=== PATIENT | female | born 1970 | race Caucasian/White ===

== ENCOUNTER 2020-09-15 08:34 | Emergency (ER) | payer OTHER, SELFPAY ==
[2020-09-15 08:40] VITALS: BP 146/79; PULSE 91; RESP 16; TEMP 36.6; O2SAT 98
--- NOTE | 2020-09-15 08:58 | ED.GENADULT ---
HPI - General Adult General Chief complaint: Upper Respiratory Infection Stated complaint: HEAD/CHEST CONGESTION Source: patient Mode of arrival: ambulatory Limitations: no limitations History of Present Illness HPI narrative: 50 y/o female. PMH includes: See Chart. Presents to clinic today with acute complaints of sinus congestion, purulent nasal discharge, PND, bilateral ear pressure and semi-productive cough for past 1 week. Client reports to have been taking OTC remedies with subtherapeutic relief. She is a daily cigarette smoker. No fever, chills, chest pain, dyspnea, abdominal pain, N/V/D. No known ill contacts. Pt reports to have just been tested for Covid 19 at work and it was negative . She politely declines additional Covid 19 testing at clinic today. No additional acute c/o upon PE. Related Data Allergies Allergy/AdvReac Type Severity Reaction Status Date / Time codeine Allergy Unknown VOMITING Verified 01/12/18 12:02 Review of Systems Review of Systems: Narrative: CONSTITUTIONAL: Denies fever, chills, sweats. EYES: Denies visual changes, redness, discharge. ENT: Congestion, otalgia, scratchy throat. CARDIOVASCULAR: Denies chest pain, palpitations, edema. RESPIRATORY: Denies dyspnea. No wheezing. Positive cough, congestion. GASTROINTESTINAL: Denies abdominal pain, nausea, vomiting, diarrhea. GENITOURINARY: Denies dysuria, hematuria, abnormal discharge SKIN: Denies rash or itching. MUSCULOSKELETAL: Denies acute back pain, joint pain, or myalgia. NEUROLOGIC: Denies numbness, or focal weakness. PSYCHIATRIC: Denies anxiety or depression. Exam Narrative: Exam Narrative: GENERAL: This is a well-nourished, well-developed patient, in no apparent distress. HEAD: normocephalic, atraumatic. EYES: PERRL. Sclera clear/white. Vision is grossly intact. EARS: External ears normal, auditory canals clear and without drainage, TMs normal without perforation, mild bilateral TM erythema. Hearing grossly intact. NOSE: Positive rhinorrhea, no obstruction. THROAT: Mucous membranes moist, posterior pharynx erythematous without swelling or exudate. NECK: Neck supple, non-tender without lymphadenopathy, masses or thyromegaly. CARDIOVASCULAR: Regular rate and rhythm without murmurs, gallops, or rubs. RESPIRATORY: Clear to auscultation. Breath sounds equal bilaterally. No wheezes or rales. Mild upper airway rhonchi, cleared with cough. GASTROINTESTINAL: Abdomen soft, non-tender, nondistended. Bowel sounds are active. No hepato-splenomegaly, or palpable masses. No guarding. SKIN: warm, intact with no suspicious lesions or rash, good texture and turgor. NEURO: awake, alert, and oriented to person, place and time. There were no obvious focal neurologic abnormalities. Steady gait EXTREMITIES: Normal range of motion. No edema. No calf tenderness. Negative Homans sign bilaterally. BACK: Nontender without deformity or crepitance. No flank tenderness. [place] Coma Scale Eye Opening: Spontaneous 4 Rom Coma Scale Motor: Obeys Commands 6 Rom Coma Scale Verbal: Oriented 5 Const: General: no acute distress Orientation/consciousness: patient oriented x3 Course Vital Signs Vital signs: Vital Signs Temperature 36.6 C 09/15/20 08:40 Pulse Rate 91 09/15/20 08:40 Respiratory Rate 16 09/15/20 08:40 Blood Pressure 146/79 H 09/15/20 08:40 Pulse Oximetry 98 09/15/20 08:40 Temperature 36.6 C 09/15/20 08:40 Pulse Rate 91 09/15/20 08:40 Respiratory Rate 16 09/15/20 08:40 Blood Pressure 146/79 H 09/15/20 08:40 Pulse Oximetry 98 09/15/20 08:40 Medical Decision Making Differential Diagnosis Differential Diagnosis: Differential diagnosis: Likely upper respiratory infection, otitis media, sinusitis, viral infection, bronchitis, pharyngitis and other (Strep throat, COVID-19). Medical Records Medical records reviewed: Yes I reviewed the patient's medical records. Vital Signs Vital Signs: Vital Signs [place]
== END 2020-09-15 09:11 | disposition home or self-care (01) ==
PROVIDERS: Emergency Provider Nurse Practitioner Adult Health; PCP Family Medicine
DX: J06.9 Acute upper respiratory infection, unspecified (principal); J01.00 Acute maxillary sinusitis, unspecified
CPT/HCPCS: 99213; G0463

== ENCOUNTER 2021-06-26 19:36 | Observation (INO) | payer OTHER, SELFPAY ==
--- NOTE | ~2021-06-26 | CT_ITS ---
EXAMINATION: CT abdomen pelvis wo con DATE: 06/26/2021 22:02 INDICATION: Right flank pain TECHNIQUE: Computed tomography (CT) of the abdomen and pelvis was performed without intravenous contr ast. The dose-length product (DLP) was 920.49 mGy-cm. Automated exposure control and iterative recons truction technique were employed. COMPARISON: 06/18/2009 FINDINGS: There is mild atelectasis of the lingula. There are tiny nodules of the lung bases measurin g up to 3 mm. The heart size is normal. The gallbladder is surgically absent. The liver, spleen, panc reas, and left adrenal gland are normal. There is a 2.2 cm mass of the right adrenal gland. A 2 mm no nobstructing stone is present in the right kidney upper pole. The left kidney is unremarkable. No sto jose are present in the ureters or bladder. There is no hydronephrosis or hydroureter. The dilated dany endix measures up to 9 mm. There is fat stranding near the base of the appendix. No pathologically en larged abdominal or pelvic lymph nodes are identified. There is no free intraperitoneal gas or eviden ce of bowel obstruction. There are changes of anterior and posterior fusion at L4-5. IMPRESSION: 1. Findings consistent with early acute appendicitis. These findings were discussed with Dr. Konrad bone M.D. at 0832 hours on 06/27/2021. 2. Tiny nodules of the lung bases, likely infectious or inflammatory. 3. 2.2 cm right adrenal mass. Follow-up with nonemergent adrenal CT or MRI is recommended. 4. Nonobstructing right nephrolithiasis. Reviewed, dictated and finalized at location A. IMPRESSION: 1. Findings consistent with early acute appendicitis. These findings were discu ssed with Dr. Konrad Blair M.D. at 0832 hours on 06/27/2021. 2. Tiny nodules of the lung bases, likely infectious or inflammatory. 3. 2.2 cm right adrenal mass. Follow-up with nonemergent adrenal CT or MRI is r ecommended. 4. Nonobstructing right nephrolithiasis.
[2021-06-26 19:53] VITALS: BP 135/90; PULSE 93; RESP 18; TEMP 36.8; O2SAT 98
[2021-06-26 22:19] VITALS: BP 120/85; PULSE 90; RESP 16; O2SAT 99
[2021-06-26 22:25] LABS: Basophils Absolute Auto 0.1 K/mm3 (0.0-0.1); Basophils Percent Auto 0.5 % (0.2-1.2); Eosinophils Absolute Auto 0.7 K/mm3 (0-0.3); Eosinophils Percent Auto 4.9 % (0-4.4); Hematocrit 37.3 % (37.0-47.0); Hemoglobin 12.3 g/dL (12.0-15.0); Immature Granulocyte Absolute 0.08 K/mm3 (0.00-0.031); Immature Granulocyte Percent A 0.5 % (0-0.5); Lymphocytes Absolute Auto 3.02 K/mm3 (0.9-3.2); Lymphocytes Percent Auto 20.7 % (18.3-44.2); Mean Platelet Volume 11.2 fl (7.4-10.4); Monocytes Percent Auto 6.9 % (2.6-8.5); Neutrophils Absolute Auto 9.7 K/mm3 (1.3-6.7); Neutrophils Percent Auto 66.5 % (45.5-73.1); Platelet Count Result 193 k/mm3 (150-375); Red Cell Distribution Width 13.2 % (11.5-14.5); White Blood Count 14.6 K/mm3 (4.5-10.0)
[2021-06-26 22:31] LABS: Anion Gap 7 mmol/L (8-16); Blood Urea Nitrogen 14 mg/dL (7-17); Calcium 9.4 mg/dL (8.4-10.2); Carbon Dioxide 25 mmol/L (22-30); Chloride 105 mmol/L (98-107); Estimated CRCL calculation 69 ml/min; Estimated Glomerular Filt Rate > 60; Glucose 102 mg/dL (65-110); Sodium 137 mmol/L (137-145)
[2021-06-26 22:32] LABS: Alanine Aminotransferase 25 U/L (4-35); Albumin Level 4.1 g/dL (3.5-5.1); Alkaline Phosphatase 95 U/L (38-126); Aspartate Amino Transferase 24 U/L (14-36); Bilirubin,Total 0.6 mg/dL (0.2-1.3); Lipase 27 U/L (23-300)
[2021-06-26 22:40] LABS: Add Urine Microscopic? YES; Appearance Urine Clear (Clear); Bacteria Urine Trace /hpf; Bilirubin Urine Negative (Negative); Blood Urine Negative (Negative); Color Urine Yellow (Yellow); Glucose Urine UA Negative (Negative); Ketones Urine Negative (Negative); Leukocyte Esterase Ur 1+ LEU/UL (Negative); Mucus Urine Rare /lpf; Nitrate Urine Negative (Negative); Protein Urine 1+ mg/dL (Negative); RBC Urine 0-2 /hpf (0-2); Urobilinogen Urine Negative mg/dL (<2.0); WBC Urine 0-3 /hpf
[2021-06-26] MEDS: SODIUM CHLORIDE 0.9% IV 1,000 ML 999 ML IV CONT (23:04)
[2021-06-26] MEDS: ONDANSETRON INJ 4 MG/2 ML VIAL IV PUSH (23:04)
[2021-06-26] MEDS: MORPHINE SULFATE (*CRX) 4 MG/ML INJ IV PUSH (23:05)
--- NOTE | 2021-06-26 23:16 | ED.GENADULT ---
HPI - General Adult General Chief complaint: Abdominal Pain Stated complaint: RLQ pain Time Seen by Provider: 06/26/21 22:09 History of Present Illness HPI narrative: Patient 51-year-old female presents the emergency department with chief complaint of right lower quadrant abdominal pain. Patient reports she started having some pain more in the right flank that radiated around to the right lower quadrant patient states is now localized more in the inferior to the umbilicus and right lower quadrant the patient states the pain is worse with palpation and improved with rest. Patient states that recently she was treated for a kidney stone that was 4 mm and told that it should pass on its own. Patient states that she has not had any fever. Related Data Home Medications Medication Instructions Recorded Confirmed cholecalciferol (vitamin D3) 125 125 mcg PO DAILY 06/07/21 06/07/21 mcg (5,000 unit) capsule multivitamin 1 tablet PO DAILY 06/07/21 06/07/21 Allergies Allergy/AdvReac Type Severity Reaction Status Date / Time codeine Allergy Unknown VOMITING Verified 06/26/21 19:57 Review of Systems Review of Systems: A 10 system review of systems was completed on the patient and is negative except for what is stated in the HPI. Nursing and ancillary documentation was reviewed. [facility] Family History Family History Mother Lung cancer Diabetes mellitus Hypertension Depression Heart disease Thyroid disorder Grandparent Stomach cancer Grandparent Lung cancer Social History Social History Smoking status: Never smoker Alcohol intake: never Substance use: never Exam Narrative: GENERAL: Well-appearing, well-nourished, and in no acute distress. HEAD: Normocephalic, atraumatic. EYES: PERRLA and EOMI. ENT: Nares clear, no rhinorrhea or epistaxis. Mucous membranes moist. NECK: Supple. CHEST: Clear to auscultation. No respiratory distress. HEART: Regular rate and rhythm. No murmur heard. Normal peripheral pulses. ABDOMEN: Soft, tender to palpation in the suprapubic and right lower quadrant, nondistended, normal active bowel sounds. EXTREMITIES: Normal range of motion. No edema. SKIN: Warm, dry, no rash. NEURO: No focal deficits. Alert and oriented x3. PSYCH: Normal mood and affect. Course Course Emergency Course: CT scan was read by the radiologist is a prominent 9 mm appendix with some small amount of right lower quadrant edema concerning for early acute appendicitis. Vital Signs Vital signs: Vital Signs Temperature 36.8 C 06/26/21 19:53 Pulse Rate 93 06/26/21 19:53 Respiratory Rate 18 06/26/21 19:53 Blood Pressure 135/90 06/26/21 19:53 Pulse Oximetry 98 06/26/21 19:53 Temperature 36.8 C 06/26/21 19:53 Pulse Rate 73 06/26/21 23:42 Respiratory Rate 20 06/26/21 23:42 Blood Pressure 119/56 L 06/26/21 23:42 Pulse Oximetry 96 06/26/21 23:42 Medical Decision Making Vital Signs Vital Signs: Vital Signs Temperature 36.8 C 06/26/21 19:53 Pulse Rate 93 06/26/21 19:53 Respiratory Rate 18 06/26/21 19:53 Blood Pressure 135/90 06/26/21 19:53 Pulse Oximetry 98 06/26/21 19:53 Temperature 36.8 C 06/26/21 19:53 Pulse Rate 73 06/26/21 23:42 Respiratory Rate 20 06/26/21 23:42 Blood Pressure 119/56 L 06/26/21 23:42 Pulse Oximetry 96 06/26/21 23:42 Lab Data Result diagrams: 06/26/21 22:16 06/26/21 22:16 Labs: Lab Results 06/26/21 06/26/21 06/26/21 Range/Units 22:16 22:16 22:16 WBC 14.6 H (4.5-10.0) K/mm3 RBC 4.10 L (4.2-5.4) M/mm3 Hgb 12.3 (12.0-15.0) g/dL Hct 37.3 (37.0-47.0) % MCV 91.0 (80-100) fl MCH 30.0 (26-34) pg MCHC 33.0 (32-36) g/dl RDW 13.2 (11.5-14.5) % Plt Count 193 (150-375) k/mm3 MPV 11.2 H (7.4-10.4) fl Immature
[2021-06-26 23:42] VITALS: BP 119/56; PULSE 73; RESP 20; O2SAT 96
[2021-06-27] VITALS (7 sets, daily range): BP systolic 101–142; BP diastolic 47–70; PULSE 58–93; RESP 12–18; TEMP 36.3–37.1; O2SAT 93–100; BMI 33.3
--- NOTE | 2021-06-27 00:04 | ECG_ITS ---
Measurements Intervals [place] Rate: 72 P: 43 MI: 135 QRS: -19 QRSD: 86 T: -12 QT: 373 QTc: 411 Interpretive Statements SINUS RHYTHM BORDERLINE R WAVE PROGRESSION, ANTERIOR LEADS INFERIOR INFARCT, AGE INDETERMINATE BASELINE ARTIFACT- I, II, III, AVR, AVL ABNORMAL ECG Electronically Signed On 06-27-2021 7:05:35 CDT by Sam Alvarez D.O.
[2021-06-27] MEDS: HYDROmorphone HCL INJ (*CRX) 1 MG/ML SYR IV PUSH ×5 (00:26→21:10)
[2021-06-27] MEDS: FAMOTIDINE 20 MG/2 ML VIAL IV PUSH (01:28)
--- NOTE | 2021-06-27 02:26 | PC.NURSE ---
This patient, Cara Mendez, was admitted to [facility] S[facility] Room 309-01. Patient/family oriented to hospital policies and general routines including ID bracelet, bed and alarms, visiting hours, pain management, procedures, bathroom and other care routines, personal items, smoking policy, room service/diet, and visiting hours. Information on how to activate the Rapid Response Team has been discussed. Patient/Family are encouraged to report perceived risks to care and to ask questions if they do not understand what they are told or what they should do.
[2021-06-27] MEDS: MAG HYDROX/AL HYDROX/SIMETH 30 ML UDC PO (02:56)
[2021-06-27] MEDS: PANTOPRAZOLE SODIUM IV 40 MG VIAL IV PUSH ×3 (02:58→21:01)
[2021-06-27] MEDS: SODIUM CHLORIDE 0.9% IV 1,000 ML 125 ML IV CONT ×3 (02:58→21:10)
[2021-06-27] MEDS: ONDANSETRON INJ 4 MG/2 ML VIAL IV PUSH (05:26)
--- NOTE | 2021-06-27 08:15 | PM.IMHP ---
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 She came home add some pancakes and then went to bed and slept well but when she woke up to go back in for a double shift on the date of admission 06/26/2021 she still has some abdominal pain. However, she went ahead and went to work for about 5 hours but could not tolerate the pain anymore and then came to the emergency room here at [facility]. Workup in the emergency room apparently showed slightly elevated white count and because of right flank pain and a history of previous kidney stone a CT scan of the abdomen pelvis was done here in the emergency room. This revealed a 9 mm appendix with some questionable stranding around the base. I was called at around 2:30 a.m. this morning by the ER physician regarding the possibility of appendicitis and therefore the patient was admitted to [facility]. Further history reveals that just recently on June 14 the patient presented to [facility] with a possible STEMI and was transferred to [facility] and had a cardiac catheterization. This was not explained to me when the patient was admitted to [facility] from the ER. Therefore, after I talked to her this morning I am consulting our hospitalists. Patient states that the result of her catheterization was that her heart muscle was healthy, that she had no coronary artery blockages, and that she was okay but she was to have a follow-up with her manager editorial at the [facility], Dr. Garcia, on Monday06/28/2021. However, this problem intervened. Right now patient is still having some nausea, some right lower quadrant abdominal pain, no real fever, and no labs were repeated this morning so I ordered some more. I will review her CT scan with our radiologist since there is no report on the chart yet from the virtual radiologist. We will also try to get a copy of the lease report possibly the images from a CT scan done about 1 month ago at [facility] for flank pain which apparently showed a kidney stone that someone told her would go ahead and pass. Review of Systems Constitutional: Constitutional: Reports as per HPI and Denies headache(s) Eyes: Eyes: Denies loss of vision and Denies eye pain ENT: Reports Normal hearing present, Denies change in voice, Denies dizziness and Denies headache(s) Comments: Recent visit with Dr. Fredy Perez (see note documented in electronic medical record) This showed wax buildup in the ear, possible early parotiditis on the left, and possible silent reflux with laryngeal irritation. Cardiovascular: Cardiovascular: Reports no additional cardiovascular complaints, Denies chest pain and Denies dyspnea Comments: Early this month the patient was presented as a possible STEMI at [facility] and was transferred to [facility] where she underwent a coronary artery angiogram. She was told that her heart muscle had no damage and that she had no blockages. She was sent home on metoprolol and a once a day PPI because of the finding of chronic reflux. Respiratory: Respiratory: Denies cough, Denies dyspnea, Denies dyspnea on exertion and Denies wheezing Gastrointestinal: Gastrointestinal: Reports abdominal pain (Mainly right lower quadrant and right flank), Denies bloating, Denies hematochezia, Denies change in bowel habits, Reports nausea and Denies vomiting Comments: Moderate anorexia starting yesterday morning History of laparoscopic cholecystectomy at [facility] in [place] approximately 2018 Genitourinary: Comments: History of 2007 laparoscopic hysterectomy and right salpingo- oophorectomy History of 2009 completion cervical remoal by laparoscopic mean
[2021-06-27 08:28] LABS: Basophils Absolute Auto 0.1 K/mm3 (0.0-0.1); Basophils Percent Auto 0.8 % (0.2-1.2); Eosinophils Absolute Auto 0.4 K/mm3 (0-0.3); Eosinophils Percent Auto 3.9 % (0-4.4); Hematocrit 36.2 % (37.0-47.0); Hemoglobin 11.6 g/dL (12.0-15.0); Immature Granulocyte Absolute 0.05 K/mm3 (0.00-0.031); Immature Granulocyte Percent A 0.6 % (0-0.5); Lymphocytes Absolute Auto 1.37 K/mm3 (0.9-3.2); Lymphocytes Percent Auto 15.2 % (18.3-44.2); Mean Corpuscular Hemoglobin 29.8 pg (26-34); Mean Corpuscular Volume 93.1 fl (80-100); Monocytes Absolute Auto 0.7 K/mm3 (0.1-0.6); Monocytes Percent Auto 7.2 % (2.6-8.5); Neutrophils Absolute Auto 6.5 K/mm3 (1.3-6.7); Neutrophils Percent Auto 72.3 % (45.5-73.1); Platelet Count Result 160 k/mm3 (150-375); Red Blood Count 3.89 M/mm3 (4.2-5.4); Red Cell Distribution Width 13.4 % (11.5-14.5)
[2021-06-27 08:47] LABS: Alanine Aminotransferase 49 U/L (4-35); Albumin Level 3.8 g/dL (3.5-5.1); Alkaline Phosphatase 97 U/L (38-126); Anion Gap 2 mmol/L (8-16); Aspartate Amino Transferase 68 U/L (14-36); Bilirubin,Total 0.4 mg/dL (0.2-1.3); Blood Urea Nitrogen 12 mg/dL (7-17); Calcium 8.4 mg/dL (8.4-10.2); Carbon Dioxide 25 mmol/L (22-30); Chloride 108 mmol/L (98-107); Estimated CRCL calculation 78 ml/min; Estimated Glomerular Filt Rate > 60; Glucose 117 mg/dL (65-110); Lipase 42 U/L (23-300); Magnesium 2.1 mg/dL (1.6-2.3); Potassium 4.1 mmol/L (3.4-5.0); Sodium 135 mmol/L (137-145)
--- NOTE | 2021-06-27 16:44 | P.CONIM_ITS ---
Assessment and Plan Assessment and plan (1) HLD (hyperlipidemia): Code(s): E78.5 - Hyperlipidemia, unspecified Status: Acute Assessment and Plan: * Patient stated that her triglycerides are always high * She treats with fish oil * Will get a lipid panel in the a.m. * Consider starting patient on a statin (2) GERD (gastroesophageal reflux disease): Code(s): K21.9 - Gastro-esophageal reflux disease without esophagitis Status: Acute Assessment and Plan: * Patient was taking Protonix 40 mg p.o. daily * Continue home medication (3) Acute appendicitis: Qualifiers: Acute appendicitis type: unspecified acute appendicitis type Qualified Code(s): K35.80 - Unspecified acute appendicitis Code(s): K35.80 - Unspecified acute appendicitis Status: Acute Assessment and Plan: * CT shows a 9 mm appendix with fat stranding near the bases * Manage per surgical services * Elevated white blood cell count that is trending down * Normal saline at 1:25 a.m. an hour * Zosyn 3.375 q.6 * Zofran 4 mg IV push Q 4 p.r.n. for nausea * Mylanta and Dulcolax suppository for constipation * Dilaudid 1 mg IV Q 3 p.r.n. for pain (4) HTN (hypertension), benign: Code(s): I10 - Essential (primary) hypertension Status: Acute Assessment and Plan: * Blood pressure is 142/59 currently * Patient on metoprolol tartrate 12.5 mg p.o. b.i.d. at home * Continue the metoprolol * Trend blood pressure * Adjust medications as needed (5) Abnormal EKG: Code(s): R94.31 - Abnormal electrocardiogram [ECG] [EKG] Status: Acute Assessment and Plan: * Patient recently was diagnosed with STEMI * According to the patient the electrolytes were deficient * cardiac consult thank you for your recommendations * Patient stated that she had a cardiac catheterization and echo done it [facility] * Will order the records * Currently magnesium is 2.1, potassium 4.1, calcium 8.4 * Resume magnesium 400 mg p.o. b.i.d. * Consider tele monitor * Consider starting patient on aspirin 81 mg p.o. (6) Elevated LFTs: Code(s): R79.89 - Other specified abnormal findings of blood chemistry Status: Acute Assessment and Plan: * Could be related to appendicitis * AST/ALT normal on admission * Slightly elevated on redraw * trend * Hepatitis panel ordered * Consider RUQ ultrasound Additional Plan Thank you letting us be apart of this case. Please do not hesitate to call with any questions. Consult was admitted to surgical services in observation HPI Data of Consult Consult date: 06/28/21 Requesting Physician: Konrad Blair MD Primary Care Provider: Boy Smith, Consult Narrative Narrative: Date of Service 06/27/21 @ 16:44 Cara Mendez is a 51 year old female with a past medical history of a cholecystectomy, hysterectomy, hyperlipidemia that presented to the emergency room for evaluation of right-sided abdominal pain. 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 She said she got up and stretch which did relieve her right away however the pain did go away and it was achy she stated that it felt like she was constipated. She then went home and went to bed where she slept well. She did notice the pain sti
--- NOTE | 2021-06-27 16:44 | PM.IMCN ---
Assessment and Plan Assessment and plan (1) HLD (hyperlipidemia): Code(s): E78.5 - Hyperlipidemia, unspecified Status: Acute Assessment and Plan: Patient stated that her triglycerides are always high She treats with fish oil Will get a lipid panel in the a.m. Consider starting patient on a statin (2) GERD (gastroesophageal reflux disease): Code(s): K21.9 - Gastro-esophageal reflux disease without esophagitis Status: Acute Assessment and Plan: Patient was taking Protonix 40 mg p.o. daily Continue home medication (3) Acute appendicitis: Qualifiers: Acute appendicitis type: unspecified acute appendicitis type Qualified Code(s): K35.80 - Unspecified acute appendicitis Code(s): K35.80 - Unspecified acute appendicitis Status: Acute Assessment and Plan: CT shows a 9 mm appendix with fat stranding near the bases Manage per surgical services Elevated white blood cell count that is trending down Normal saline at 1:25 a.m. an hour Zosyn 3.375 q.6 Zofran 4 mg IV push Q 4 p.r.n. for nausea Mylanta and Dulcolax suppository for constipation Dilaudid 1 mg IV Q 3 p.r.n. for pain (4) HTN (hypertension), benign: Code(s): I10 - Essential (primary) hypertension Status: Acute Assessment and Plan: Blood pressure is 142/59 currently Patient on metoprolol tartrate 12.5 mg p.o. b.i.d. at home Continue the metoprolol Trend blood pressure Adjust medications as needed (5) Abnormal EKG: Code(s): R94.31 - Abnormal electrocardiogram [ECG] [EKG] Status: Acute Assessment and Plan: Patient recently was diagnosed with STEMI According to the patient the electrolytes were deficient cardiac consult thank you for your recommendations Patient stated that she had a cardiac catheterization and echo done it [facility] Will order the records Currently magnesium is 2.1, potassium 4.1, calcium 8.4 Resume magnesium 400 mg p.o. b.i.d. Consider tele monitor Consider starting patient on aspirin 81 mg p.o. (6) Elevated LFTs: Code(s): R79.89 - Other specified abnormal findings of blood chemistry Status: Acute Assessment and Plan: Could be related to appendicitis AST/ALT normal on admission 24/25 Slightly elevated on redraw trend Hepatitis panel ordered Consider RUQ ultrasound Additional Plan Thank you letting us be apart of this case. Please do not hesitate to call with any questions. Consult was admitted to surgical services in observation HPI Data of Consult Consult date: 06/28/21 Requesting Physician: Konrad Blair MD Primary Care Provider: Boy Smith, Consult Narrative Narrative: Date of Service 06/27/21 @ 16:44 Cara Mendez is a 51 year old female with a past medical history of a cholecystectomy, hysterectomy, hyperlipidemia that presented to the emergency room for evaluation of right-sided abdominal pain. 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 She said she got up and stretch which did relieve her right away however the pain did go away and it was achy she stated that it felt like she was constipated. She then went home and went to bed where she slept well. She did notice the pain still in her abdomen however she did go to work that night and lasted about 5 hours when the pain got worse and she came to the emergency room. I did talk to the patient about further concern of the cardiac system. Patient stated that she did have chest pain and went to the emergency room at [employer] where she was noted to have some EKG changes and a STEMI. They were unable to intervene at that time so they transferred the patient to [facility] for further care. Patient stat
[2021-06-27] MEDS: BISACODYL 10 MG SUPPOSITORY RECTAL (18:09)
[2021-06-27] MEDS: METOPROLOL TARTRATE 12.5 MG TABLET PO (18:22)
[2021-06-28] MEDS: ONDANSETRON INJ 4 MG/2 ML VIAL IV PUSH ×2 (01:28→08:56)
[2021-06-28] MEDS: HYDROmorphone HCL INJ (*CRX) 1 MG/ML SYR IV PUSH ×3 (05:23→12:36)
[2021-06-28] MEDS: SODIUM CHLORIDE 0.9% IV 1,000 ML 125 ML IV CONT ×2 (05:27→14:01)
[2021-06-28 05:49] VITALS: BP 144/70; PULSE 64; RESP 17; TEMP 36.7; O2SAT 96
[2021-06-28 07:37] LABS: Basophils Absolute Auto 0.1 K/mm3 (0.0-0.1); Basophils Percent Auto 0.8 % (0.2-1.2); Eosinophils Absolute Auto 0.6 K/mm3 (0-0.3); Eosinophils Percent Auto 9.7 % (0-4.4); Hematocrit 35.3 % (37.0-47.0); Hemoglobin 11.2 g/dL (12.0-15.0); Immature Granulocyte Absolute 0.02 K/mm3 (0.00-0.031); Immature Granulocyte Percent A 0.3 % (0-0.5); Lymphocytes Percent Auto 33.9 % (18.3-44.2); Mean Corpuscular HGB Conc 31.7 g/dl (32-36); Mean Corpuscular Hemoglobin 30.1 pg (26-34); Mean Corpuscular Volume 94.9 fl (80-100); Mean Platelet Volume 11.5 fl (7.4-10.4); Monocytes Absolute Auto 0.4 K/mm3 (0.1-0.6); Monocytes Percent Auto 6.9 % (2.6-8.5); Neutrophils Percent Auto 48.4 % (45.5-73.1); Platelet Count Result 160 k/mm3 (150-375); Red Blood Count 3.72 M/mm3 (4.2-5.4); Red Cell Distribution Width 13.2 % (11.5-14.5); White Blood Count 6.2 K/mm3 (4.5-10.0)
[2021-06-28 08:24] LABS: Alanine Aminotransferase 47 U/L (4-35); Albumin Level 3.6 g/dL (3.5-5.1); Alkaline Phosphatase 85 U/L (38-126); Anion Gap 2 mmol/L (8-16); Aspartate Amino Transferase 43 U/L (14-36); Bilirubin,Total 0.2 mg/dL (0.2-1.3); Blood Urea Nitrogen 9 mg/dL (7-17); Calcium 8.7 mg/dL (8.4-10.2); Carbon Dioxide 25 mmol/L (22-30); Chloride 110 mmol/L (98-107); Cholesterol 225 mg/dL (0-200); Estimated CRCL calculation 63 ml/min; Estimated Glomerular Filt Rate 58; Glucose 103 mg/dL (65-110); HDL Direct 36 mg/dL; Magnesium 2.1 mg/dL (1.6-2.3); Potassium 4.1 mmol/L (3.4-5.0); Sodium 137 mmol/L (137-145); Triglycerides 278 mg/dL (<150)
[2021-06-28 08:35] LABS: LDL Cholesterol Direct 122 mg/dL
[2021-06-28 08:50] VITALS: PULSE 64
[2021-06-28] MEDS: METOPROLOL TARTRATE 12.5 MG TABLET PO ×2 (08:50→20:49)
[2021-06-28] MEDS: PANTOPRAZOLE SODIUM IV 40 MG VIAL IV PUSH ×2 (08:51→20:49)
[2021-06-28] MEDS: MAGNESIUM OXIDE 400 MG TABLET PO (08:51)
--- NOTE | 2021-06-28 08:52 | PM.CNCAR ---
Assessment and Plan Assessment and plan (1) Acute appendicitis: Qualifiers: Acute appendicitis type: unspecified acute appendicitis type Qualified Code(s): K35.80 - Unspecified acute appendicitis Code(s): K35.80 - Unspecified acute appendicitis Status: Acute Assessment and Plan: Currently being treated conservatively with antibiotics. (2) Abnormal EKG: Code(s): R94.31 - Abnormal electrocardiogram [ECG] [EKG] Status: Acute Assessment and Plan: The patient has a EKG with mild chronic changes. Her recent cardiac catheterization earlier in June 2021 showed no significant coronary disease. Her chest discomfort at that time was blamed on electrolyte imbalance, and hypertension. She also had a small pericardial effusion but apparently it was not thought she had pericarditis. No recurrent chest discomfort I think the patient would be at low risk for cardiovascular complications should she need surgical intervention of her appendicitis. (3) S/P coronary angiogram: Code(s): Z98.890 - Other specified postprocedural states Status: Acute Assessment and Plan: Cardiac catheterization 06/14/2021 showed minimal coronary plaquing. (4) Mixed hyperlipidemia: Code(s): E78.2 - Mixed hyperlipidemia Status: Acute Assessment and Plan: ACC/AHA CV Risk Calculator suggests an 11.9% risk of CV problems over the next 10 years. Consider statin tx once LFTs and acute issues resolve. (5) HTN (hypertension), benign: Code(s): I10 - Essential (primary) hypertension Status: Acute Assessment and Plan: Recent onset of hypertension, treated with metoprolol. (6) Pericardial effusion: Code(s): I31.3 - Pericardial effusion (noninflammatory) Status: Acute Assessment and Plan: Small pericardial effusion noted by echo 06/14/2021. Does not appear to have any pericardial pain. Probably an incidental finding. (7) Tobacco use: Code(s): Z72.0 - Tobacco use Status: Acute Assessment and Plan: Hopefully the patient will discontinue smoking. (8) Elevated LFTs: Code(s): R79.89 - Other specified abnormal findings of blood chemistry Status: Acute Assessment and Plan: Uncertain etiology Additional Plan Follow-up with usual straddle truck operator, Dr. Aron Garcia, on discharge. Will sign off; thank you very much for this consult. Please call if we can be of any further help. History of Present Illness History of Present Illness Consult date/time: 06/28/21 08:52 Reason For Visit: Acute appendicitis Narrative: Date of service 06/28/2021 Cara Oviedo is a 51-year-old female whom I was asked to see at the request of hospitalist for my advice and opinion regarding her anticipated cardiovascular perioperative risk. She had a recent cardiac catheterization done at [facility]. She was admitted with abdominal pain, possibly early appendicitis. The patient presented to [facility] on 06/14/2021 with intense chest discomfort, feeling like her chest was on fire, radiating to the jaw and arms. Her EKG showed some inferior ST changes and she was transferred to [facility] for ongoing chest discomfort. She underwent cardiac catheterization which showed minimal coronary plaquing. Her echo showed normal left ventricular function, EF 55%, with diastolic dysfunction and a small pericardial effusion. Her potassium (was < 3.0), magnesium and calcium were low and repleted. She had no prior history of hypertension but her blood pressure was high and she was started on metopro
--- NOTE | 2021-06-28 13:18 | P.PNIM_ITS ---
Progress Note: A&P Assessment and Plan (1) Acute appendicitis: Qualifiers: Acute appendicitis type: unspecified acute appendicitis type Qualified Code(s): K35.80 - Unspecified acute appendicitis Code(s): K35.80 - Unspecified acute appendicitis Status: Acute Assessment and Plan: * CT shows a 9 mm appendix with fat stranding near the bases * Manage per surgical services * Elevated white blood cell count that is trending down * Normal saline at 125 an hour * Zosyn 3.375 q.6 * Zofran 4 mg IV push Q4 p.r.n. for nausea * Mylanta and Dulcolax suppository for constipation * Dilaudid 1 mg IV Q 3 p.r.n. for pain (2) HTN (hypertension), benign: Code(s): I10 - Essential (primary) hypertension Status: Acute Assessment and Plan: * Blood pressure is 142/59 currently * Continue metoprolol tartrate 12.5 mg p.o. b.i.d. at home * Trend blood pressure * Adjust medications as needed (3) HLD (hyperlipidemia): Code(s): E78.5 - Hyperlipidemia, unspecified Status: Acute Assessment and Plan: * Patient stated that her triglycerides are always high * She treats with fish oil, this is not working * lipid panel: Triglycerides 278 cholesterol 225 LDL 122 HDL 36 * Consider starting patient on a statin (4) GERD (gastroesophageal reflux disease): Code(s): K21.9 - Gastro-esophageal reflux disease without esophagitis Status: Acute Assessment and Plan: * Patient was taking Protonix 40 mg p.o. daily * Continue home medication (5) Abnormal EKG: Code(s): R94.31 - Abnormal electrocardiogram [ECG] [EKG] Status: Acute Assessment and Plan: * Cardiology recommends statin when acute problems are resolved * Patient recently was diagnosed with STEMI at [facility] * According to the patient the electrolytes were deficient * cardiac consult thank you for your recommendations * Patient stated that she had a cardiac catheterization and echo done it [facility] on 06/14/21 * records reviewed by cardiology * Currently magnesium is 2.1, potassium 4.1, calcium 8.7 on 06/28/21 which is stable from day before * Resume magnesium 400 mg p.o. b.i.d. (6) Elevated LFTs: Code(s): R79.89 - Other specified abnormal findings of blood chemistry Status: Acute Assessment and Plan: * Could be related to appendicitis * AST/ALT normal on admission * Slightly elevated now at 43/47 but trending down * Hepatitis panel ordered * Hold off on RUQ ultrasound Time Spent With Patient Time with patient: Greater than 35 minutes Subjective Date/time seen: Date of service 06/28/21 08:15 Interval history: patient is a 51-year-old female who is here for evaluation of acute appendicitis. Patient stated that she feels okay however she woke up with a headache today at 3:30 a.m. she has also been nauseated on and off but the Zofran has been helping her. Her pain is a 5 or 6/10 it is achy and she states that she can feel it when she coughs or palpates. Her pain is mostly in the right lower quadrant. she did state that her pain is controlled with Dilaudid. She does feel weaker than normal However she still able to get up and walk to the bathroom back. She also stated that she has been urinating a lot and denies any urgency or frequency, pain or irritation with urination. Patient denies chest pain, breath, sweats chills or numbness and tingling. Patient did say that she could have had a fe
--- NOTE | 2021-06-28 13:18 | PM.IMPN ---
Progress Note: A&P Assessment and Plan (1) Acute appendicitis: Qualifiers: Acute appendicitis type: unspecified acute appendicitis type Qualified Code(s): K35.80 - Unspecified acute appendicitis Code(s): K35.80 - Unspecified acute appendicitis Status: Acute Assessment and Plan: CT shows a 9 mm appendix with fat stranding near the bases Manage per surgical services Elevated white blood cell count that is trending down Normal saline at 125 an hour Zosyn 3.375 q.6 Zofran 4 mg IV push Q4 p.r.n. for nausea Mylanta and Dulcolax suppository for constipation Dilaudid 1 mg IV Q 3 p.r.n. for pain (2) HTN (hypertension), benign: Code(s): I10 - Essential (primary) hypertension Status: Acute Assessment and Plan: Blood pressure is 142/59 currently Continue metoprolol tartrate 12.5 mg p.o. b.i.d. at home Trend blood pressure Adjust medications as needed (3) HLD (hyperlipidemia): Code(s): E78.5 - Hyperlipidemia, unspecified Status: Acute Assessment and Plan: Patient stated that her triglycerides are always high She treats with fish oil, this is not working lipid panel: Triglycerides 278 cholesterol 225 LDL 122 HDL 36 Consider starting patient on a statin (4) GERD (gastroesophageal reflux disease): Code(s): K21.9 - Gastro-esophageal reflux disease without esophagitis Status: Acute Assessment and Plan: Patient was taking Protonix 40 mg p.o. daily Continue home medication (5) Abnormal EKG: Code(s): R94.31 - Abnormal electrocardiogram [ECG] [EKG] Status: Acute Assessment and Plan: Cardiology recommends statin when acute problems are resolved Patient recently was diagnosed with STEMI at [facility] According to the patient the electrolytes were deficient cardiac consult thank you for your recommendations Patient stated that she had a cardiac catheterization and echo done it [facility] on 06/14/21 records reviewed by cardiology Currently magnesium is 2.1, potassium 4.1, calcium 8.7 on 06/28/21 which is stable from day before Resume magnesium 400 mg p.o. b.i.d. (6) Elevated LFTs: Code(s): R79.89 - Other specified abnormal findings of blood chemistry Status: Acute Assessment and Plan: Could be related to appendicitis AST/ALT normal on admission Slightly elevated now at 43/47 but trending down Hepatitis panel ordered Hold off on RUQ ultrasound Time Spent With Patient Time with patient: Greater than 35 minutes Subjective Date/time seen: Date of service 06/28/21 08:15 Interval history: patient is a 51-year-old female who is here for evaluation of acute appendicitis. Patient stated that she feels okay however she woke up with a headache today at 3:30 a.m. she has also been nauseated on and off but the Zofran has been helping her. Her pain is a 5 or 6/10 it is achy and she states that she can feel it when she coughs or palpates. Her pain is mostly in the right lower quadrant. she did state that her pain is controlled with Dilaudid. She does feel weaker than normal However she still able to get up and walk to the bathroom back. She also stated that she has been urinating a lot and denies any urgency or frequency, pain or irritation with urination. Patient denies chest pain, breath, sweats chills or numbness and tingling. Patient did say that she could have had a fever because she felt very very warm at 1 point in the night. Review of Systems Review of Systems: All systems reviewed & are unremarkable except as noted in HPI and below Exam Const: General: cooperative, healthy appearing, no acute distress, well developed, alert, awake, Physically active, ill appearing, tired appearing and uncomfortable (will lay on her left side) Nutritional Appearance: well nourished, obese and overweight Orientation/consciousness:
[2021-06-28 14:00] VITALS: BP 134/67; PULSE 74; RESP 14; TEMP 37.2; O2SAT 91
[2021-06-28 14:34] LABS: Hepatitis B Surface Antigen Negative (Negative)
[2021-06-28 14:40] LABS: HAV RESULT Negative (Negative); Hepatitis B Core IgM Result Negative (Negative)
[2021-06-28 14:51] LABS: Hepatitis C Virus Antibody Negative (Negative)
[2021-06-28] MEDS: MAG HYDROX/AL HYDROX/SIMETH 30 ML UDC PO (17:36)
--- NOTE | 2021-06-28 19:30 | PM.PNGS ---
Progress Note: A&P Assessment and Plan (1) Acute appendicitis: Onset Date: ~06/26/21 Qualifiers: Acute appendicitis type: unspecified acute appendicitis type Qualified Code(s): K35.80 - Unspecified acute appendicitis Code(s): K35.80 - Unspecified acute appendicitis Status: Acute Assessment and Plan: I had a thorough discussion with the patient and her or significant other who was in the room. We are continuing to pursue the course of possible antibiotic only treatment for her appendicitis. She is progressing. She had been able to keep liquids down last night. She has however still had some nausea and a couple episodes of vomiting. Intervening she has had a bad migraine that started last evening. This has not been helped by her IV Tylenol or Dilaudid. She has had a bowel movement today which is also making progress. At this time I will plan to allow her to have liquids again clears tonight and she in the nurse will decide about either clears or full liquids for breakfast tomorrow. We will continue IV Zosyn with the plans to switch to oral metronidazole and Levaquin or ciprofloxacin upon home going. She has been afebrile and her white count is down to normal. Will order some [place] 5/325 for tonight and she will try to take this rather than the Dilaudid but the Dilaudid will still be available if she has severe pain. (2) Elevated LFTs: Code(s): R79.89 - Other specified abnormal findings of blood chemistry Status: Acute (3) Abnormal EKG: Code(s): R94.31 - Abnormal electrocardiogram [ECG] [EKG] Status: Acute Assessment and Plan: see hospitalist note and cardiology note. Appreciate their help. Patient apparently has significant hyperlipidemia and they will make recommendations upon discharge. Patient also be having a outpatient cardiology visit with someone at [facility] in [place] (4) Tobacco use: Code(s): Z72.0 - Tobacco use Status: Acute (5) Pericardial effusion: Code(s): I31.3 - Pericardial effusion (noninflammatory) Status: Acute (6) Mixed hyperlipidemia: Code(s): E78.2 - Mixed hyperlipidemia Status: Acute (7) HLD (hyperlipidemia): Code(s): E78.5 - Hyperlipidemia, unspecified Status: Acute (8) S/P coronary angiogram: Code(s): Z98.890 - Other specified postprocedural states Status: Acute (9) HTN (hypertension), benign: Code(s): I10 - Essential (primary) hypertension Status: Acute (10) GERD (gastroesophageal reflux disease): Code(s): K21.9 - Gastro-esophageal reflux disease without esophagitis Status: Acute Subjective Subjective Date/Time Seen: 06/28/21 19:30 Patient reports: still having pain ( However she states 100% less than when she came in.) Interval history: Patient states she has not taken Dilaudid since sometime this morning. Her main complaint is a continuing migraine. She had been getting IV Tylenol but this out dated. She apparently told the hospitalist about this but no other crypts [place] medications given her ordered. She has had a bowel movement since getting to the hospital and states that was normal for her. She is passing flatus. She is walking in the room but not much in the hallway yet. Review of Systems Constitutional: Constitutional: Reports no additional constitutional complaints ENT: Reports other (Mucous Membranes moist.) Cardiovascular: Cardiovascular: Denies dyspnea Respiratory: Respiratory: Denies pain on inspiration and Denies dyspnea Gastrointestinal: Gastrointestinal: Denies GI cramping Comments: Somewhat of a constant dull ache in the right lower abdomen Genitourinary: Genitourinary: Reports no additional female genitourinary complaints Musculoskeletal: Musculoskeletal: Reports other (No calf swelling or edema) Integumentary/Breasts: Skin/Breast: Reports system reviewed and n
[2021-06-28] MEDS: HYDROcodone/acetaminophen (*CRX) 5-325 MG TABLET 1 TAB PO (20:59)
[2021-06-28 21:47] VITALS: BP 139/75; PULSE 77; RESP 18; TEMP 36.7; O2SAT 96
[2021-06-29 00:21] VITALS: BP 139/78; PULSE 77; RESP 18; TEMP 36.7; O2SAT 96
[2021-06-29] MEDS: SODIUM CHLORIDE 0.9% IV 1,000 ML 125 ML IV CONT (02:37)
[2021-06-29] MEDS: HYDROcodone/acetaminophen (*CRX) 5-325 MG TABLET 1 TAB PO (02:37)
[2021-06-29 07:05] LABS: Basophils Absolute Auto 0.1 K/mm3 (0.0-0.1); Eosinophils Absolute Auto 0.6 K/mm3 (0-0.3); Eosinophils Percent Auto 7.9 % (0-4.4); Hematocrit 36.5 % (37.0-47.0); Hemoglobin 11.6 g/dL (12.0-15.0); Immature Granulocyte Absolute 0.02 K/mm3 (0.00-0.031); Immature Granulocyte Percent A 0.3 % (0-0.5); Lymphocytes Absolute Auto 2.24 K/mm3 (0.9-3.2); Lymphocytes Percent Auto 30.6 % (18.3-44.2); Mean Corpuscular HGB Conc 31.8 g/dl (32-36); Mean Corpuscular Hemoglobin 29.7 pg (26-34); Mean Corpuscular Volume 93.4 fl (80-100); Mean Platelet Volume 11.5 fl (7.4-10.4); Monocytes Absolute Auto 0.6 K/mm3 (0.1-0.6); Monocytes Percent Auto 7.5 % (2.6-8.5); Neutrophils Absolute Auto 3.9 K/mm3 (1.3-6.7); Neutrophils Percent Auto 52.7 % (45.5-73.1); Platelet Count Result 169 k/mm3 (150-375); Red Blood Count 3.91 M/mm3 (4.2-5.4); Red Cell Distribution Width 12.7 % (11.5-14.5); White Blood Count 7.3 K/mm3 (4.5-10.0)
[2021-06-29 07:33] LABS: Alanine Aminotransferase 52 U/L (4-35); Albumin Level 3.9 g/dL (3.5-5.1); Alkaline Phosphatase 83 U/L (38-126); Anion Gap 5 mmol/L (8-16); Aspartate Amino Transferase 42 U/L (14-36); Bilirubin,Total 0.4 mg/dL (0.2-1.3); Blood Urea Nitrogen 6 mg/dL (7-17); Calcium 9.1 mg/dL (8.4-10.2); Carbon Dioxide 27 mmol/L (22-30); Chloride 108 mmol/L (98-107); Estimated CRCL calculation 70 ml/min; Estimated Glomerular Filt Rate > 60; Glucose 99 mg/dL (65-110); Magnesium 2.2 mg/dL (1.6-2.3); Potassium 4.2 mmol/L (3.4-5.0); Sodium 140 mmol/L (137-145)
[2021-06-29] MEDS: PANTOPRAZOLE SODIUM IV 40 MG VIAL IV PUSH (08:31)
[2021-06-29] MEDS: MAGNESIUM OXIDE 400 MG TABLET PO (08:32)
[2021-06-29 08:33] VITALS: PULSE 64
[2021-06-29] MEDS: METOPROLOL TARTRATE 12.5 MG TABLET PO (08:33)
--- NOTE | 2021-06-29 11:49 | P.PNIM_ITS ---
Progress Note: A&P Assessment and Plan (1) Acute appendicitis: Onset Date: ~06/26/21 Qualifiers: Acute appendicitis type: unspecified acute appendicitis type Qualified Code(s): K35.80 - Unspecified acute appendicitis Code(s): K35.80 - Unspecified acute appendicitis Status: Acute Assessment and Plan: * CT shows a 9 mm appendix with fat stranding near the bases * Manage per surgical services * I blood cell count and neutrophil count normal today. She is tolerating advancement of her diet as per surgical services. She will continue on some oral antibiotics once discharged. * She is currently stable from a medical perspective for discharge at this time. (2) HTN (hypertension), benign: Code(s): I10 - Essential (primary) hypertension Status: Acute Assessment and Plan: * Blood pressure is 139/78 * Continue metoprolol tartrate 12.5 mg p.o. b.i.d. at home (3) HLD (hyperlipidemia): Code(s): E78.5 - Hyperlipidemia, unspecified Status: Acute Assessment and Plan: * Patient stated that her triglycerides are always high. Patient states she cannot have statin medications due to a reaction in the past. * I discussed with her possible need for repassed the or other injectable medication for better control of her cholesterol to trying prevent further plaque buildup and issues in the future. * lipid panel: Triglycerides 278 cholesterol 225 LDL 122 HDL 36 * She will need to discuss this with her superintendent renting managing after discharge * Per cardiology: ACC/AHA CV Risk Calculator suggests an 11.9% risk of CV problems over the next 10 years. Consider statin tx once LFTs and acute issues resolve. (4) GERD (gastroesophageal reflux disease): Code(s): K21.9 - Gastro-esophageal reflux disease without esophagitis Status: Acute Assessment and Plan: * Patient was taking Protonix 40 mg p.o. daily (5) Abnormal EKG: Code(s): R94.31 - Abnormal electrocardiogram [ECG] [EKG] Status: Acute Assessment and Plan: * Patient recently was diagnosed with STEMI at [facility] * records reviewed by cardiology stating: Her recent cardiac catheterization earlier in June 2021 showed no significant coronary disease. Her chest discomfort at that time was blamed on electrolyte imbalance, and hypertension. She also had a small pericardial effusion but apparently it was not thought she had pericarditis. * Currently magnesium is 2.2, potassium 4.2, calcium 9.1 on 06/29/21 which is stable. (6) Elevated LFTs: Code(s): R79.89 - Other specified abnormal findings of blood chemistry Status: Acute Assessment and Plan: * Could be related to appendicitis * AST/ALT was normal on admission, now slightly elevated 42/52. * Slightly elevated now at 43/47 but trending down * Hepatitis panel normal * Hold off on RUQ ultrasound. Can consider as outpatient if repeat labs in 1 week are still elevated. * Will check CMP in 1 week. (7) Adrenal mass: Code(s): E27.8 - Other specified disorders of adrenal gland Status: Acute Assessment and Plan: 2.2 cm right adrenal mass. Follow-up with nonemergent adrenal CT or MRI is recommended. -Talked with the patients PCP wh
--- NOTE | 2021-06-29 11:49 | PM.IMPN ---
Progress Note: A&P Assessment and Plan (1) Acute appendicitis: Onset Date: ~06/26/21 Qualifiers: Acute appendicitis type: unspecified acute appendicitis type Qualified Code(s): K35.80 - Unspecified acute appendicitis Code(s): K35.80 - Unspecified acute appendicitis Status: Acute Assessment and Plan: CT shows a 9 mm appendix with fat stranding near the bases Manage per surgical services I blood cell count and neutrophil count normal today. She is tolerating advancement of her diet as per surgical services. She will continue on some oral antibiotics once discharged. She is currently stable from a medical perspective for discharge at this time. (2) HTN (hypertension), benign: Code(s): I10 - Essential (primary) hypertension Status: Acute Assessment and Plan: Blood pressure is 139/78 Continue metoprolol tartrate 12.5 mg p.o. b.i.d. at home (3) HLD (hyperlipidemia): Code(s): E78.5 - Hyperlipidemia, unspecified Status: Acute Assessment and Plan: Patient stated that her triglycerides are always high. Patient states she cannot have statin medications due to a reaction in the past. I discussed with her possible need for repassed the or other injectable medication for better control of her cholesterol to trying prevent further plaque buildup and issues in the future. lipid panel: Triglycerides 278 cholesterol 225 LDL 122 HDL 36 She will need to discuss this with her care coordination manager after discharge Per cardiology: ACC/AHA CV Risk Calculator suggests an 11.9% risk of CV problems over the next 10 years. Consider statin tx once LFTs and acute issues resolve. (4) GERD (gastroesophageal reflux disease): Code(s): K21.9 - Gastro-esophageal reflux disease without esophagitis Status: Acute Assessment and Plan: Patient was taking Protonix 40 mg p.o. daily (5) Abnormal EKG: Code(s): R94.31 - Abnormal electrocardiogram [ECG] [EKG] Status: Acute Assessment and Plan: Patient recently was diagnosed with STEMI at [facility] records reviewed by cardiology stating: Her recent cardiac catheterization earlier in June 2021 showed no significant coronary disease. Her chest discomfort at that time was blamed on electrolyte imbalance, and hypertension. She also had a small pericardial effusion but apparently it was not thought she had pericarditis. Currently magnesium is 2.2, potassium 4.2, calcium 9.1 on 06/29/21 which is stable. (6) Elevated LFTs: Code(s): R79.89 - Other specified abnormal findings of blood chemistry Status: Acute Assessment and Plan: Could be related to appendicitis AST/ALT was normal on admission, now slightly elevated 42/52. Slightly elevated now at 43/47 but trending down Hepatitis panel normal Hold off on RUQ ultrasound. Can consider as outpatient if repeat labs in 1 week are still elevated. Will check CMP in 1 week. (7) Adrenal mass: Code(s): E27.8 - Other specified disorders of adrenal gland Status: Acute Assessment and Plan: 2.2 cm right adrenal mass. Follow-up with nonemergent adrenal CT or MRI is recommended. -Talked with the patients PCP who recommends calling the clinic for follow up after hospitalization and need for scheduling follow up imaging for adrenal mass found on CT. -I did inform the patient of adrenal mass and need for follow up. (8) Lung nodules: Code(s): R91.8 - Other nonspecific abnormal finding of lung field Status: Acute Assessment and Plan: CT abdomen showed tiny nodules of the lung bases, likely in
--- NOTE | 2021-07-22 08:06 | PM.DS ---
DS: Admitting Diagnosis Discharge Date 06/29/21 acute uncomplicated appendicitis Admitting Diagnosis 1. Acute uncomplicated appendicitis 2. Recent coronary angiogram for chest pain. 3. History of multiple medical problems DS: Discharge Diagnosis Discharge Diagnosis (1) Acute appendicitis: Onset Date: ~06/26/21 Qualifiers: Acute appendicitis type: unspecified acute appendicitis type Qualified Code(s): K35.80 - Unspecified acute appendicitis Code(s): K35.80 - Unspecified acute appendicitis Status: Acute Assessment and Plan: I had a thorough discussion with the patient and her or significant other who was in the room. We are continuing to pursue the course of possible antibiotic only treatment for her appendicitis. She is progressing. She had been able to keep soft food down last night. She has however still had ,but significantly less nausea over night. She has had a bowel movement yesterday. At this time will plan for discharge later today. We will continue IV Zosyn with the plans to switch to oral metronidazole and Levaquin or ciprofloxacin upon home going. She has been afebrile and her white count is down to normal. Has tried some [place] 5/325 for pain and she will try to take this if needed at home for the next few days and then convert to just Tylenol or ibuprofen. (2) Adrenal mass: Onset Date: ~06/2021 Code(s): E27.8 - Other specified disorders of adrenal gland Status: Acute Assessment and Plan: Noted as incidental finding on CT scan from the ED. Will follow-up with PCP regarding this. (3) Tobacco use: Onset Date: Unknown Code(s): Z72.0 - Tobacco use Status: Acute Assessment and Plan: Encouraged patient to stop smoking. (4) S/P coronary angiogram: Code(s): Z98.890 - Other specified postprocedural states Status: Acute Assessment and Plan: This was followed by Medicine while in the hospital. Cardiology consultation was obtained and they gave the patient clearance should she need surgery. No further recommendations for cardiac intervention were put foward. Patient will follow up with her secretary of state as an outpatient. (5) HTN (hypertension), benign: Code(s): I10 - Essential (primary) hypertension Status: Acute (6) LPRD (laryngopharyngeal reflux disease): Code(s): K21.9 - Gastro-esophageal reflux disease without esophagitis Status: Acute Assessment and Plan: Patient taking precautions and continues her pantoprazole upon discharge. DS: Summary Hospital Course Reason for hospitalization: Acute uncomplicated appendicitis Hospital Course: The patient was admitted after CT scan in the emergency room revealed apparent acute uncomplicated appendicitis. Patient has recently had some heart issues and after thorough discussion agreed to proceed with antibiotic therapy alone. We discussed both the risks benefits and possible complications of surgical intervention which general anesthesia versus close observation and antibiotic treatment. In view of her other health issues she decided to proceed with the antibiotic treatment and we kept her for several days on IV antibiotics. We saw her CIS do some gradual improvement although silver other medical problems gave her difficulty including migraine headaches and nausea. See further dispositions under each diagnosis above. Status at Discharge Cognitive/behavioral status at discharge: Appears to be back to baseline Functional status at discharge: independent ambulation Overall status at discharge: patient is not back to baseline ( will be on antibiotics and will contact us if any problems with increased abdominal pain fever or other issues.) Time Spent with Patient Time attestation: Total time spent providing and/or coordinating discharge services: Time spent: Greater than 30 minutes Exam Const: General: cooperative, no
== END 2021-06-29 14:30 | disposition home or self-care (01) ==
LOC: ANHED 06-27 00:10 → ANH3MEDSUR 06-27 01:36
PROVIDERS: Nurse Practitioner; Admitting Provider Surgery; Emergency Provider Emergency Medicine; PCP Family Medicine; Visit Provider Surgery
DX: K35.80 Unspecified acute appendicitis (principal); M26.609 Unspecified temporomandibular joint disorder, unspecified side; I31.3 Pericardial effusion (noninflammatory); K21.9 Gastro-esophageal reflux disease without esophagitis; E27.8 Other specified disorders of adrenal gland; R91.8 Other nonspecific abnormal finding of lung field; M54.9 Dorsalgia, unspecified; K11.20 Sialoadenitis, unspecified; R94.31 Abnormal electrocardiogram [ECG] [EKG]; R79.89 Other specified abnormal findings of blood chemistry; I10 Essential (primary) hypertension; E78.5 Hyperlipidemia, unspecified; N20.0 Calculus of kidney; Z87.891 Personal history of nicotine dependence
CPT/HCPCS: 36415; 74176; 80048; 80053; 80061; 80074; 80076; 81001; 83690; 83735; 85025; 93005; 96361; 96365; 96367; 96374; 96375; 96376; 99285; A9270; C9113; G0378; J0131; J1170; J2270; J2405; J2543; J7030

== ENCOUNTER → 2021-10-12 03:40 | Outpatient (CLI) | payer OTHER, SELFPAY ==
[2021-10-12 20:04] LABS: SARS-CoV-2 RNA PCR Negative
== END ==
PROVIDERS: PCP Family Medicine; Visit Provider Internal Medicine Gastroenterology
DX: Z01.812 Encounter for preprocedural laboratory examination (principal); Z20.822 Contact with and (suspected) exposure to COVID-19
CPT/HCPCS: C9803; U0003; U0005

== ENCOUNTER 2021-10-15 00:44 | Day surgery (SDC) | payer OTHER, SELFPAY ==
[2021-10-05 10:09] VITALS: BMI 31.5
--- NOTE | 2021-10-14 15:39 | PM.HPGS ---
History of Present Illness History of Present Illness Consent: Risks, benefits, and alternatives have been discussed and questions answered. Patient agrees to proceed with procedure. Chief complaint: nausea, abdominal pain, bloating Narrative: Cara Mendez is a 51 year old female. Back in June she was admitted to [facility] for right-sided abdominal pain. She was noted to have elevated liver enzymes. She had a Ct scan that showed 9mm appendix and was felt to have early acute uncomplicated appendicitis, she was treated with IV and oral antibiotics therapy (records reviewed). Her liver enzymes were treading downward when she discharged from the hospital. She reports her last Ct scan was negative for any appendiceal inflammation. she continues to have right sided abdominal pain and bloating. She reports 2-3 BM a day that are soft but hard to pass, she contributes this to hydrocodone use. She denies any blood in stool/black stools/diarrhea/fever. For past 3 months with daily nausea but no vomiting. For the past 3-4 months she has been taking Ibuprofen up to 1600 mg daily for back pain. Ten days ago she was switched to hydrocodone and instructed to stop the Ibuprofen. She denies any Reflux or heartburn but tells me that on June 14, she presented to [facility] for c/o chest pain and pressure believed to be a possible STEMI. She has a family history of colon cancer her grandmother. She has not yet had a screening colonoscopy Review of Systems Review of Systems: All systems reviewed & are unremarkable except as noted in HPI and below PMFSH Past Medical History Medical History Abnormal EKG Abnormal EKG Fusion of lumbar spine L3-L4 2017 HTN (hypertension), benign Right nephrolithiasis Tobacco use (Unknown) Surgical History Surgical History H/O: hysterectomy 2007 and 2010 Status post cholecystectomy 2017 Family History Family History Mother Diabetes mellitus Depression Heart disease Lung cancer Hypertension Thyroid disorder Cerebrovascular accident History of heart artery stent CAD Onset in 60's to 70's Acute myocardial infarction 7 stents placed Grandparent Stomach cancer Grandparent Lung cancer Father Hypertension Social History Social History Social History: Patient lives at home with her Evanarabella Ng. 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 She has 2 children that are grown. And there are 2 pets in the house that are Cats. 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
[2021-10-15 11:21] VITALS: BP 131/75; PULSE 88; RESP 18; TEMP 36.2; O2SAT 95
[2021-10-15] MEDS: LACTATED RINGERS 1,000 ML 150 ML IV CONT (11:34)
--- NOTE | 2021-10-15 12:17 | WPDANESEPPF ---
Anes - Initial Pre Proc Eval Procedure: Operation Date: 10/15/21 12:30 Proposed Procedures p Esophagogastroduodenoscopy & Colonoscopy - Puma Briones MD Date/Time: 10/15/21 12:17 Surgeon: Puma Briones MD Pre Op Diagnosis: nausea, abdominal pain, bloating Patient Data Age: 51 Gender: F Height: 1.65 m Weight: 86.9 kg Last Vital Signs Temp 36.2 C L 10/15/21 11:21 Pulse 88 10/15/21 11:21 Resp 18 10/15/21 11:21 BP 131/75 10/15/21 11:21 Pulse Ox 95 10/15/21 11:21 Allergies Allergy/AdvReac Type Severity Reaction Status Date / Time codeine AdvReac Unknown VOMITING Verified 10/15/21 11:20 Home Medications Medication Instructions Recorded Confirmed Type hydrocodone 10 mg-acetaminophen 1 tablet PO Q4H PRN 08/25/21 10/05/21 History 325 mg tablet ascorbate calcium (vitamin C) 1,000 mg PO DAILY 10/05/21 10/05/21 History cholecalciferol (vitamin D3) 125 mcg PO DAILY 10/05/21 10/05/21 History [Vitamin D3] coQ10 (ubiquinol) 200 mg PO DAILY 10/05/21 10/05/21 History flaxseed oil [[place]-3 Flaxseed Oil] 4,000 mg PO DAILY 10/05/21 10/05/21 History Patient hx anesthesia problems: none Family hx anesthesia problems: none Results Review: All pre-operative results and documents have been reviewed as part of the pre-operative evaluation. [facility] Past Medical History Medical History Abnormal EKG Abnormal EKG Fusion of lumbar spine L3-L4 2017 HTN (hypertension), benign Right nephrolithiasis Tobacco use (Unknown) Surgical History Surgical History H/O: hysterectomy 2007 and 2010 Status post cholecystectomy 2017 Family History Family History Mother Diabetes mellitus Depression Heart disease Lung cancer Hypertension Thyroid disorder Cerebrovascular accident History of heart artery stent CAD Onset in 60's to 70's Acute myocardial infarction 7 stents placed Grandparent Stomach cancer Grandparent Lung cancer Father Hypertension Social History Social History Social History: Patient lives at home with her Evan Ng. 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 She has 2 children that are grown. And there are 2 pets in the house that are Cats. 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 Gender identity (if verbalized by the patient): Female Sexual Orientation (if Verbalized by the Patient): Straight or Heterosexual Spiritual care concerns: No Agree to blood products: Yes Anes - Eval Final PreProcedure Day of Procedure 10/15/21 12:17 Patient weight: obese Heart: regular rate and rhythm Lungs: clear to auscultation Airway: Mallampati scale class II Neurological: alert and oriented Last oral intake: >/= 8 hours ASA classification: III Emergent: no Anesthetic plan: proceed Anesthesia type and monitoring: general GIVS and standard monitoring Results Review: All pre-operative results and documents have been reviewed as part of the pre-operative evaluation. Informed Consent: The patient's anesthetic plan and its attendant risks and benefits were discussed with the patient/family/POA.
[2021-10-15] MEDS: BENZOCAINE (*SP) 60 ML SPRAY CAN (HURRICAINE) 1 SPRAY MUCOUS MEM (12:38)
--- NOTE | 2021-10-15 13:01 | SUR.OPER ---
EGD started at 1240 and ended at 1242. Colonoscopy started at 1249 and ended at 1259.
[2021-10-15 13:03] VITALS: BP 128/83; PULSE 90; RESP 18; O2SAT 100
[2021-10-15 13:12] VITALS: BP 135/82; PULSE 87; RESP 18; O2SAT 98
[2021-10-15 13:20] VITALS: BP 146/88; PULSE 77; RESP 18; O2SAT 100
== END 2021-10-15 13:31 | disposition home or self-care (01) ==
PROVIDERS: PCP Family Medicine; Visit Provider Internal Medicine Gastroenterology
PROC: 0DJ08ZZ Inspection of Upper Intestinal Tract, Via Natural or Artificial Opening Endoscopic (ICD-10-PCS; CPT 43235; principal; 2021-10-15 12:30)
DX: Z12.11 Encounter for screening for malignant neoplasm of colon (principal); K44.9 Diaphragmatic hernia without obstruction or gangrene; K21.9 Gastro-esophageal reflux disease without esophagitis; K29.60 Other gastritis without bleeding; I10 Essential (primary) hypertension; Z98.1 Arthrodesis status; Z87.891 Personal history of nicotine dependence; E66.9 Obesity, unspecified; Z68.31 Body mass index [BMI] 31.0-31.9, adult
CPT/HCPCS: 45378; 43239; 87081; C9803; J2704; J7120; U0003; U0005

== ENCOUNTER 2022-04-16 07:43 | Emergency (ER) | payer OTHER, SELFPAY ==
[2022-04-16] VITALS (30 sets, daily range): BP systolic 99–158; BP diastolic 79–120; PULSE 67–92; RESP 10–25; TEMP 36.6; O2SAT 93–100
--- NOTE | ~2022-04-16 | XR_ITS ---
EXAMINATION: XR chest 2V DATE: 04/16/2022 08:14 INDICATION: Chest pressure TECHNIQUE: PA and lateral views of the chest are obtained. COMPARISON: 06/27/2017 FINDINGS: The lungs are free of acute opacities. There is no pleural effusion or pneumothorax. The ca rdiomediastinal silhouette is normal. There is mild thoracic spondylosis. IMPRESSION: 1. No acute cardiopulmonary abnormality. Reviewed, dictated and finalized at location A.
--- NOTE | 2022-04-16 07:51 | PC.NURSE ---
pt. Evan can be reached at [phone]
--- NOTE | 2022-04-16 07:57 | ECG_ITS ---
Measurements Intervals [place] Rate: 79 P: 32 KS: 155 QRS: -16 QRSD: 86 T: 28 QT: 376 QTc: 431 Interpretive Statements SINUS RHYTHM WITH SINUS ARRHYTHMIA POSSIBLE RIGHT VENTRICULAR CONDUCTION DELAY [RSR (QR) IN V1/V2] INFERIOR MYOCARDIAL INFARCTION , OF INDETERMINATE AGE NO SIGNIFICANT CHANGE COMPARED TO PRIOR TRACING Electronically Signed On 04-16-2022 9:28:26 CDT by Michelle Baldwin M.D.
[2022-04-16 08:03] LABS: Basophils Absolute Auto 0.1 K/mm3 (0.0-0.1); Basophils Percent Auto 0.9 % (0.2-1.2); Eosinophils Absolute Auto 0.7 K/mm3 (0-0.3); Eosinophils Percent Auto 6.4 % (0-4.4); Hematocrit 45.8 % (37.0-47.0); Hemoglobin 15.1 g/dL (12.0-15.0); Immature Granulocyte Absolute 0.06 K/mm3 (0.00-0.031); Immature Granulocyte Percent A 0.6 % (0-0.5); Lymphocytes Absolute Auto 2.55 K/mm3 (0.9-3.2); Mean Corpuscular Hemoglobin 29.4 pg (26-34); Mean Corpuscular Volume 89.3 fl (80-100); Mean Platelet Volume 11.3 fl (7.4-10.4); Monocytes Absolute Auto 0.6 K/mm3 (0.1-0.6); Neutrophils Absolute Auto 6.6 K/mm3 (1.3-6.7); Neutrophils Percent Auto 62.1 % (45.5-73.1); Platelet Count Result 225 k/mm3 (150-375); Red Blood Count 5.13 M/mm3 (4.2-5.4); Red Cell Distribution Width 13.1 % (11.5-14.5); White Blood Count 10.6 K/mm3 (4.5-10.0)
[2022-04-16 08:13] LABS: Alanine Aminotransferase 47 U/L (6-35); Albumin Level 4.8 g/dL (3.5-5.1); Alkaline Phosphatase 112 U/L (38-126); Anion Gap 11 mmol/L (8-16); Aspartate Amino Transferase 45 U/L (14-36); Bilirubin,Total 0.3 mg/dL (0.2-1.3); Blood Urea Nitrogen 16 mg/dL (7-17); Calcium 9.5 mg/dL (8.4-10.2); Carbon Dioxide 24 mmol/L (22-30); Chloride 106 mmol/L (98-107); Estimated Glomerular Filt Rate > 60; Glucose 114 mg/dL (65-110); Lipase 44 U/L (23-300); Potassium 4.4 mmol/L (3.4-5.0); Sodium 141 mmol/L (137-145)
[2022-04-16 08:17] LABS: Partial Thromboplastin Time 30.5 SECONDS (22.3-36.8)
[2022-04-16 08:25] LABS: Troponin I < 0.012 ng/mL (0.000-0.034)
--- NOTE | 2022-04-16 08:28 | ED.GENADULT ---
HPI - General Adult General Chief complaint: Shortness of Breath/Dyspnea Stated complaint: shortness of breath Time Seen by Provider: 04/16/22 08:18 History of Present Illness HPI narrative: 51-year-old female presented emergency department for evaluation of headache, shortness of breath, fatigue, right flank pain and hypertension. Patient states that she had some headache and shortness of breath on . Patient states on Monday she did have elevated blood pressure. Patient states this morning she woke up her blood pressure was 177/107. Patient does not take any medications for her blood pressure. Upon arrival to the ED blood pressure is 140/80. Patient states that she had a similar episode of hypertension in June where her blood pressure was roughly 190/120. At that time patient was found to have a possible nodule on her adrenal gland. Patient had multiple electrolyte abnormalities at that time. Patient does have follow-up scheduled with endocrine. Related Data Home Medications Medication Instructions Recorded Confirmed hydrocodone 10 mg-acetaminophen 1 tablet PO Q4H PRN Pain 08/25/21 10/27/21 325 mg tablet ascorbate calcium (vitamin C) 500 1,000 mg PO DAILY 10/05/21 10/27/21 mg tablet cholecalciferol (vitamin D3) 125 125 mcg PO DAILY 10/05/21 10/27/21 mcg (5,000 unit) tablet (Vitamin D3) coQ10 (ubiquinol) 200 mg capsule 200 mg PO DAILY 10/05/21 10/27/21 flaxseed oil 1,000 mg capsule 4,000 mg PO DAILY 10/05/21 10/27/21 ([place]-3 Flaxseed Oil) Allergies Allergy/AdvReac Type Severity Reaction Status Date / Time codeine AdvReac Unknown VOMITING Verified 04/16/22 07:58 Review of Systems Review of Systems: CONSTITUTIONAL: Denies fever, chills, or sweats. EYES: Denies visual changes, redness, or discharge. ENT: Denies rhinorrhea, congestion, sore throat, or otalgia. CARDIOVASCULAR: Chest pain RESPIRATORY: Shortness of breath GASTROINTESTINAL: Denies abdominal pain, nausea, vomiting, or diarrhea. GENITOURINARY: Denies dysuria or hematuria. SKIN: Denies rash or itching. MUSCULOSKELETAL: Denies back pain, joint pain, or myalgia. NEUROLOGIC: Headache with no numbness or weakness PMFSH Past Medical History Medical History Abnormal EKG Abnormal EKG Fusion of lumbar spine L3-L4 2017 HTN (hypertension), benign Obesity (BMI 35.0-39.9 without comorbidity) Right nephrolithiasis Tobacco use (Unknown) Surgical History Surgical History H/O: hysterectomy 2007 and 2010 Status post cholecystectomy 2017 Family History Family History Mother Diabetes mellitus Depression Heart disease Lung cancer Hypertension Thyroid disorder Cerebrovascular accident History of heart artery stent CAD Onset in 60's to 70's Acute myocardial infarction 7 stents placed Grandparent Stomach cancer Grandparent Lung cancer Father Hypertension Social History Social History Social History: Patient lives at home with her Evan Carlson Hernandez. 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 She has 2 children that are grown. And there are 2 pets in the house that are Cats. 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
[2022-04-16 09:46] LABS: Magnesium 2.3 mg/dL (1.6-2.3)
[2022-04-16 10:18] LABS: Appearance Urine Clear (Clear); Bilirubin Urine Negative (Negative); Color Urine Yellow (Yellow); Glucose Urine UA Negative (Negative); Ketones Urine Negative (Negative); Leukocyte Esterase Ur Trace LEU/UL (Negative); Nitrate Urine Negative (Negative); Protein Urine Negative (Negative); Urobilinogen Urine 0.2 mg/dL (<2.0)
[2022-04-16 10:22] LABS: Add Urine Microscopic? YES; Blood Urine Trace-Intact (Negative)
[2022-04-16 10:23] LABS: Mucus Urine Rare /lpf; Squamous Epithelial Cell Urine Many /hpf (Few); WBC Urine 0-3 /hpf
[2022-04-16 10:49] LABS: SARS-CoV-2 RNA PCR Negative
[2022-04-16 11:18] LABS: Troponin I < 0.012 ng/mL (0.000-0.034)
[2022-04-16] MEDS: ACETAMINOPHEN 325 MG TABLET 650 MG PO (13:51)
== END 2022-04-16 14:02 | disposition home or self-care (01) ==
PROVIDERS: Emergency Provider Emergency Medicine; PCP Family Medicine
DX: R07.89 Other chest pain (principal); I10 Essential (primary) hypertension; Z77.22 Contact with and (suspected) exposure to environmental tobacco smoke (acute) (chronic); E66.9 Obesity, unspecified; Z87.442 Personal history of urinary calculi; Z87.891 Personal history of nicotine dependence; R94.31 Abnormal electrocardiogram [ECG] [EKG]
CPT/HCPCS: 36415; 71046; 80053; 81001; 83690; 83735; 84484; 85025; 85610; 85730; 93005; 99284; A9270; C9803; U0003; U0005

== ENCOUNTER 2022-05-31 18:33 | Emergency (ER) | payer OTHER, SELFPAY ==
[2022-05-31 18:41] VITALS: BP 165/90; PULSE 64; RESP 16; TEMP 35.9; O2SAT 99
--- NOTE | 2022-05-31 18:41 | ED.URI ---
HPI - URI/Sore Throat General Chief Complaint: Upper Respiratory Infection Stated Complaint: sore throat Time Seen by Provider: 05/31/22 18:41 Source: patient and RN notes reviewed Mode of arrival: ambulatory Limitations: no limitations History of Present Illness HPI Narrative: 51-year-old female presented for complaint of sinus pressure congestion, postnasal drainage, cough and sore throat with hoarse voice worsening over the past 2 weeks. Cough is productive of yellow sputum. She endorses a history of sinus infections and states it feels similar. She has taken several [id number] medications without relief in symptoms. She denies shortness of breath, wheezing, nausea, vomiting, diarrhea, fevers or chills. Negative home COVID test 2 days ago. MD elicited complaint: cough Related Data Home Medications Medication Instructions Recorded Confirmed hydrocodone 10 mg-acetaminophen 1 tablet PO Q4H PRN Pain 08/25/21 05/31/22 325 mg tablet ascorbate calcium (vitamin C) 500 1,000 mg PO DAILY 10/05/21 05/31/22 mg tablet cholecalciferol (vitamin D3) 125 125 mcg PO DAILY 10/05/21 05/31/22 mcg (5,000 unit) tablet (Vitamin D3) coQ10 (ubiquinol) 200 mg capsule 200 mg PO DAILY 10/05/21 05/31/22 flaxseed oil 1,000 mg capsule 4,000 mg PO DAILY 10/05/21 05/31/22 ([place]-3 Flaxseed Oil) Allergies Allergy/AdvReac Type Severity Reaction Status Date / Time codeine AdvReac Unknown VOMITING Verified 05/31/22 18:44 Review of Systems Review of Systems: CONSTITUTIONAL: Denies malaise, chills, fever EYES: Denies visual changes, redness, or discharge ENT: Reports rhinorrhea, congestion, sinus pain, otalgia, sore throat CARDIOVASCULAR: Denies chest pain, palpitations, edema RESPIRATORY: Reports cough, post nasal drainage. Denies dyspnea GASTROINTESTINAL: Denies abdominal pain, nausea, vomiting, diarrhea SKIN: Denies rash or itching MUSCULOSKELETAL: Denies myalgia NEUROLOGIC: Endorses headache PMFSH Past Medical History Medical History Abnormal EKG Abnormal EKG Fusion of lumbar spine L3-L4 2017 HTN (hypertension), benign Obesity (BMI 35.0-39.9 without comorbidity) Right nephrolithiasis Tobacco use (Unknown) Surgical History Surgical History H/O: hysterectomy 2008 and 2010 Status post cholecystectomy 2017 Family History Family History Mother Diabetes mellitus Depression Heart disease Lung cancer Hypertension Thyroid disorder Cerebrovascular accident History of heart artery stent CAD Onset in 60's to 70's Acute myocardial infarction 7 stents placed Grandparent Stomach cancer Grandparent Lung cancer Father Hypertension Social History Social History Social History: Patient lives at home with her Evan Carlson Hernandez. 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 She has 2 children that are grown. And there are 2 pets in the house that are Cats. 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
== END 2022-05-31 19:18 | disposition home or self-care (01) ==
PROVIDERS: Emergency Provider Nurse Practitioner Family; PCP Family Medicine
DX: J06.9 Acute upper respiratory infection, unspecified (principal); Z87.891 Personal history of nicotine dependence; I10 Essential (primary) hypertension
CPT/HCPCS: 87081; 87880; 99213; G0463

== ENCOUNTER 2022-08-16 09:33 | Emergency (ER) | payer OTHER, SELFPAY ==
[2022-08-16 09:39] VITALS: BP 119/71; PULSE 112; RESP 16; TEMP 36.7; O2SAT 96
--- NOTE | 2022-08-16 09:39 | ED.URI ---
HPI - URI/Sore Throat General Chief Complaint: Upper Respiratory Infection Stated Complaint: BODY ACHES/SORE THROAT/HEADACHE Time Seen by Provider: 08/16/22 09:39 Source: patient and RN notes reviewed History of Present Illness HPI Narrative: Patient is a 52-year-old female who presents the urgent care with complaints of sore throat, headache, body aches, fever and nausea. Patient states that she has had symptoms for approximately 1 week and had a negative COVID test at home. Patient states that there has been people at work. States that she has been using Mucinex/Tylenol/ibuprofen. No other acute complaints. No acute distress noted. Patient aware of the plan of care. Some parts of this dictation were generated by voice recognition software and may contain typographical and/or grammatical inaccuracies. Related Data Allergies Allergy/AdvReac Type Severity Reaction Status Date / Time codeine AdvReac Unknown VOMITING Verified 05/31/22 18:44 Review of Systems Review of Systems: CONSTITUTIONAL: Reports a fever EYES: Denies visual changes, redness, or discharge. ENT: Denies rhinorrhea, congestion, otalgia. Reports of sore throat CARDIOVASCULAR: Denies chest pain, palpitations, or edema. RESPIRATORY: Reports a mild nonproductive cough without dyspnea GASTROINTESTINAL: Reports of nausea without vomiting or diarrhea GENITOURINARY: Denies dysuria or hematuria. SKIN: Denies rash or itching. MUSCULOSKELETAL: Denies back pain, joint pain. Reports of body aches NEUROLOGIC: Denies headache, numbness, or weakness. All other systems reviewed are negative, except as documented in HPI. [facility] Past Medical History Medical History Abnormal EKG Abnormal EKG Fusion of lumbar spine L3-L4 2017 HTN (hypertension), benign Obesity (BMI 35.0-39.9 without comorbidity) Right nephrolithiasis Tobacco use (Unknown) Surgical History Surgical History H/O: hysterectomy 2007 and 2010 Status post cholecystectomy 2017 Family History Family History Mother Diabetes mellitus Depression Heart disease Lung cancer Hypertension Thyroid disorder Cerebrovascular accident History of heart artery stent CAD Onset in 60's to 70's Acute myocardial infarction 7 stents placed Grandparent Stomach cancer Grandparent Lung cancer Father Hypertension Social History Social History Social History: Patient lives at home with her Evan Ng. 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 She has 2 children that are grown. And there are 2 pets in the house that are Cats. 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 There is no relevant family history pertinent to the patient complaint. Exam Narrative: GENERAL: This is a well-nourished, well-developed patient, in no apparent distress. HEAD: normocephalic, atraumatic. EYES: P
== END 2022-08-16 10:13 | disposition home or self-care (01) ==
PROVIDERS: Emergency Provider Nurse Practitioner Family; PCP Family Medicine
DX: J02.0 Streptococcal pharyngitis (principal); Z87.891 Personal history of nicotine dependence; I10 Essential (primary) hypertension; E66.9 Obesity, unspecified; Z68.33 Body mass index [BMI] 33.0-33.9, adult
CPT/HCPCS: 87880; 99213; G0463

== ENCOUNTER 2022-11-05 10:34 | Emergency (ER) | payer OTHER, SELFPAY ==
--- NOTE | 2022-11-05 10:46 | ED.EXTPRO ---
HPI - Extremity Problem General Chief complaint: Extremity Problem,Nontraumatic Stated complaint: finger inf Time Seen by Provider: 11/05/22 10:46 Source: patient Mode of arrival: ambulatory Limitations: no limitations History of Present Illness HPI Narrative: Cara is a 52-year-old female patient presenting to the clinic today with complaints of a possible finger infection x2 days. She reports the 4th finger on the right hand has a possible ingrown hangnail. States that she has been digging at it trying to get it but now it is so sore and there is redness and streaking up her finger. Related Data Allergies Allergy/AdvReac Type Severity Reaction Status Date / Time codeine AdvReac Unknown VOMITING Verified 11/05/22 10:44 Review of Systems Review of Systems: Pertinent positives per HPI. Patient denies any fever, chills, rash, headache, visual changes, dizziness, cough, runny nose, sore throat, shortness of breath, chest pain, palpitations, nausea, vomiting, diarrhea, constipation, abdominal pain, or any urinary issues. PMFSH Past Medical History Medical History Abnormal EKG Abnormal EKG Fusion of lumbar spine L3-L4 2018 HTN (hypertension), benign Obesity (BMI 35.0-39.9 without comorbidity) Right nephrolithiasis Tobacco use (Unknown) Surgical History Surgical History H/O: hysterectomy 2007 and 2010 Status post cholecystectomy 2017 Family History Family History Mother Diabetes mellitus Depression Heart disease Lung cancer Hypertension Thyroid disorder Cerebrovascular accident History of heart artery stent CAD Onset in 60's to 70's Acute myocardial infarction 7 stents placed Grandparent Stomach cancer Grandparent Lung cancer Father Hypertension Social History Social History Social History: Patient lives at home with her Evan marshal Ng. 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 She has 2 children that are grown. And there are 2 pets in the house that are Cats. 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 There is no relevant family history pertinent to the patient complaint. Exam Narrative: General: Well-developed, well nourished, in no apparent distress Head: Normocephalic, atraumatic. Cardio: Regular rate and rhythm, s1 and s2 normal, no murmur appreciated. Resp: Clear to auscultation bilaterally, no rhonchi, rales, wheezing or rubs. Integumentary: [place], warm, and dry, intact without lesion, no rashes. Redness and swelling noted to the proximal nail and lateral nail of the right ring finger with redness/streaking up the finger Course Course Emergency Course: Portions of this record may have been created with voice recognition software. Level of Care: Express Care Visit Vital Signs Vital signs: Vital Signs Temperature 36.8 C 11/05/22 10
[2022-11-05 10:50] VITALS: BP 133/83; PULSE 72; RESP 16; TEMP 36.8; O2SAT 100
== END 2022-11-05 10:58 | disposition home or self-care (01) ==
PROVIDERS: Emergency Provider Nurse Practitioner Family; PCP Family Medicine
DX: L03.011 Cellulitis of right finger (principal); I10 Essential (primary) hypertension; F17.210 Nicotine dependence, cigarettes, uncomplicated
CPT/HCPCS: 99213; G0463

== ENCOUNTER 2022-11-10 08:18 | Emergency (ER) | payer OTHER, SELFPAY ==
--- NOTE | 2022-11-10 08:22 | ED.GENADULT ---
HPI - General Adult General Chief complaint: Extremity Problem,Nontraumatic Stated complaint: infected ingrown fingernail Time Seen by Provider: 11/10/22 08:26 Source: patient, RN notes reviewed and old records reviewed Mode of arrival: ambulatory Limitations: no limitations History of Present Illness HPI narrative: 52-year-old female presents to the [facility] after being evaluated on the , 5 days ago for an ingrown fingernail Now has a green fluctuant area that just started a couple of hours ago while she was working. Related Data Allergies Allergy/AdvReac Type Severity Reaction Status Date / Time codeine AdvReac Unknown VOMITING Verified 11/05/22 10:44 Review of Systems Review of Systems: All systems reviewed & are unremarkable except as noted in HPI and below Constitutional: Constitutional: Reports no additional constitutional complaints Eyes: Eyes: Reports no additional eye complaints ENT: Reports system reviewed and no additional complaints, except as documented Cardiovascular: Cardiovascular: Reports no additional cardiovascular complaints, Denies chest pain and Denies dyspnea Respiratory: Respiratory: Reports no additional respiratory complaints, Denies chest congestion, Denies cough and Denies dyspnea Gastrointestinal: Gastrointestinal: Reports no additional gastrointestinal complaints, Denies abdominal pain, Denies nausea and Denies vomiting Musculoskeletal: Musculoskeletal: Reports no additional musculoskeletal complaints Integumentary/Breasts: Skin/Breast: Reports as per HPI and Reports erythema Neurologic: Reports system reviewed and no additional complaints, except as documented Psychiatric: Psychiatric: Reports no additional psychiatric complaints Allergic/Immunologic: Allergic/Immunologic: Reports no additional allergic/immunologic complaints PMF Past Medical History Medical History Abnormal EKG Abnormal EKG Fusion of lumbar spine L3-L4 2017 HTN (hypertension), benign Obesity (BMI 35.0-39.9 without comorbidity) Right nephrolithiasis Tobacco use (Unknown) Surgical History Surgical History H/O: hysterectomy 2007 and 2010 Status post cholecystectomy 2017 Family History Family History Mother Diabetes mellitus Depression Heart disease Lung cancer Hypertension Thyroid disorder Cerebrovascular accident History of heart artery stent CAD Onset in 60's to 70's Acute myocardial infarction 7 stents placed Grandparent Stomach cancer Grandparent Lung cancer Father Hypertension Social History Social History Social History: Patient lives at home with her Evan Ng. 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 She has 2 children that are grown. And there are 2 pets in the house that are Cats. 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 There is no relev
[2022-11-10 08:27] VITALS: BP 138/72; PULSE 77; RESP 16; TEMP 36.9; O2SAT 97
== END 2022-11-10 09:00 | disposition home or self-care (01) ==
PROVIDERS: Emergency Provider Nurse Practitioner; PCP Family Medicine
DX: L03.031 Cellulitis of right toe (principal); Z87.891 Personal history of nicotine dependence; I10 Essential (primary) hypertension; E66.9 Obesity, unspecified; Z68.32 Body mass index [BMI] 32.0-32.9, adult
CPT/HCPCS: 10060; 87070; 87075; 87147; 87181; 87186; 87205; 99213; G0463

== ENCOUNTER 2024-05-23 09:02 | Emergency (ER) | payer OTHER, SELFPAY ==
--- NOTE | 2024-05-23 09:09 | ED.LOWEXIN ---
HPI - Extremity Injury (Lower) General Chief Complaint: Extremity Injury, Lower Stated Complaint: Left Knee Pain Time Seen by Provider: 05/23/24 09:10 Source: patient Mode of arrival: ambulatory Limitations: no limitations History of Present Illness HPI Narrative: Jaimes a 53-year-old female patient presenting to the clinic today with complaints of left knee pain x2 days. Reports on Monday she twisted her ankle when trying to assist a patient with a transfer. States the a patient stepped on her foot and she had to twist her knee to be able to assist the patient during the transfer. States she felt a sharp pain and a pop to the lateral knee with radiation of pain to the posterior knee. She has been taking ibuprofen and that has been relieving her pain. Aggravating factors include ambulation and bending her left knee. Related Data Home Medications Medication Instructions Recorded Confirmed No Home Medications 05/23/24 05/23/24 Allergies Allergy/AdvReac Type Severity Reaction Status Date / Time codeine AdvReac Unknown VOMITING Verified 05/23/24 09:12 Review of Systems Review of Systems: Pertinent positives per HPI. Patient denies any fever, chills, rash, headache, visual changes, dizziness, cough, runny nose, sore throat, shortness of breath, chest pain, palpitations, nausea, vomiting, diarrhea, constipation, abdominal pain, or any urinary issues. [facility] Past Medical History Medical History Abnormal EKG Abnormal EKG Fusion of lumbar spine L3-L4 2017 HTN (hypertension), benign Obesity (BMI 35.0-39.9 without comorbidity) Right nephrolithiasis Tobacco use (Unknown) Surgical History Surgical History H/O: hysterectomy 2007 and 2010 Status post cholecystectomy 2017 Family History Family History Mother Diabetes mellitus Depression Heart disease Lung cancer Hypertension Thyroid disorder Cerebrovascular accident History of heart artery stent CAD Onset in 60's to 70's Acute myocardial infarction 7 stents placed Grandparent Stomach cancer Grandparent Lung cancer Father Hypertension Social History Social History Social History: Patient lives at home with her Evan Carlson Hernandez. 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 She has 2 children that are grown. And there are 2 pets in the house that are Cats. 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 There is no relevant family history pertinent to the patient complaint. Exam Narrative: General: Well-developed, well nourished, in no apparent distress Head: Normocephalic, atraumatic. Cardio: Regular rate and rhythm, s1 and s2 normal, no murmur appreciated. Resp: Clear to auscultation bilaterally, no rhonchi, rales, wheezing or rubs. Musc
[2024-05-23 09:13] VITALS: BP 141/93; PULSE 88; RESP 16; TEMP 36.5; O2SAT 99
== END 2024-05-23 09:53 | disposition home or self-care (01) ==
PROVIDERS: Emergency Provider Nurse Practitioner Family
DX: S83.422A Sprain of lateral collateral ligament of left knee, initial encounter (principal); X50.0XXA Overexertion from strenuous movement or load, initial encounter; I10 Essential (primary) hypertension; E66.9 Obesity, unspecified; Z68.30 Body mass index [BMI] 30.0-30.9, adult
CPT/HCPCS: 73564; 99213; G0463

== ENCOUNTER 2024-11-03 19:01 | Observation (INO) | payer OTHER, SELFPAY ==
--- NOTE | ~2024-11-03 | US_ITS ---
LEFT LOWER EXTREMITY VENOUS ULTRASOUND Ordering provider: Constantine Mccabe MD History: . knee surgery, +Homans . Comparison: None. FINDINGS: --COMMON FEMORAL: Patent and free of thrombus. Normal compressibility, phasic flow and augmentation. --PROXIMAL SUPERFICIAL FEMORAL: Patent and free of thrombus. Normal compressibility, phasic flow and augmentation. --DISTAL SUPERFICIAL FEMORAL: Patent and free of thrombus. Normal compressibility, phasic flow and au gmentation. --POPLITEAL: Patent and free of thrombus. Normal compressibility, phasic flow and augmentation. --POSTERIOR TIBIAL: Patent and free of thrombus. Normal compressibility, phasic flow and augmentation . IMPRESSION: Negative left lower extremity venous US. No deep vein thrombosis. Reviewed, dictated and finalized at location A. OP ANALYST
--- NOTE | ~2024-11-03 | CT_ITS ---
EXAMINATION: CT abdomen pelvis w con DATE: 11/03/2024 22:22 INDICATION: Right lower quadrant abdominal pain. TECHNIQUE: Computed tomography (CT) of the abdomen and pelvis was performed with 100 mL Omnipaque 350 intravenous contrast. Automated exposure control and iterative reconstruction technique were employe d. The dose-length product was 909.60 mGy-cm. COMPARISON: CT abdomen and pelvis 06/26/2021 FINDINGS: The visualized portions of the lung bases demonstrate mild atelectasis. No pleural effusion . The heart size is normal. No pericardial effusion. The liver, spleen, and pancreas are normal. The gallbladder is absent. There is a 2.5 cm mass in the right adrenal gland without change, likely an ad enoma. Left adrenal gland is normal. There are 5 mm and 2 mm stones in right kidney. Left kidney is n ormal. There are appendicoliths in the appendix, which is fluid-filled and dilated to 14 mm with surr ounding fat stranding, consistent with appendicitis. There are no pathologically enlarged lymph nodes . There is no free intraperitoneal fluid. There is a benign bone island in right pelvis. There are ch anges of anterior and posterior fusion procedures at L4-L5. There is severe lower lumbar spondylosis. IMPRESSION: 1. Acute appendicitis. Reviewed, dictated and finalized at location A. TOLOGIC TECHNICIAN IMPRESSION: 1. Acute appendicitis.
[2024-11-03 19:03] VITALS: BP 150/98; PULSE 104; RESP 15; TEMP 36.3; O2SAT 100
--- NOTE | 2024-11-03 20:58 | ED_ITS ---
HPI - Abdominal Pain General Chief Complaint: Abdominal Pain <VICENTE Middleton Last Filed: 11/04/24 01:23> Stated Complaint: R abd pain <VICENTE Middleton Last Filed: 11/04/24 01:23> Time Seen by Provider: 11/03/24 20:31 <VICENTE Middleton Last Filed: 11/04/24 01:23> Source: patient <VICENTE Middleton Last Filed: 11/04/24 01:23> Mode of arrival: ambulatory <VICENTE Middleton Last Filed: 11/04/24 01:23> Limitations: no limitations <VICENTE Middleton Last Filed: 11/04/24 01:23> History of Present Illness HPI narrative: This is a 54-year-old female that presents to the emergency department for right lower quadrant pain. Ongoing over the last 2 days. Reports subjective fevers and nausea. Denies vomiting. Patient recently underwent left knee meniscal repair a couple of weeks ago, did have her follow up appointment with orthopedics earlier today. No problems with this. <VICENTE Middleton Last Filed: 11/04/24 01:23> Related Data Home Medications: Home Medications ?Medication ?Instructions ?Recorded ?Confirmed ?Last Taken ?Type aspirin 81 mg chewable tablet 11/04/24 11/03/24 History hydrocodone 5 mg-acetaminophen 325 tablet 11/04/24 11/03/24 History mg tablet <VICENTE Middleton Last Filed: 11/04/24 01:23> Allergies/Adverse Reactions: Allergies Allergy/AdvReac Type Severity Reaction Status Date / Time codeine AdvReac Unknown VOMITING Verified 05/23/24 09:12 <VICENTE Middleton Last Filed: 11/04/24 01:23> Review of Systems 2 Review of Systems: CONSTITUTIONAL: Reports fever, chills GASTROINTESTINAL: Report abdominal pain, nausea. Denies vomiting, or diarrhea. GENITOURINARY: Denies dysuria <VICENTE Middleton Last Filed: 11/04/24 01:23> All systems reviewed & are unremarkable except as noted in HPI and below < Lizeth Arndt PA-C - Last Filed: 11/04/24 01:23> [facility] Past Medical History Medical History: Medical History Abnormal EKG Abnormal EKG Fusion of lumbar spine L3-L4 2018 HTN (hypertension), benign Obesity (BMI 35.0-39.9 without comorbidity) Right nephrolithiasis Tobacco use (Unknown) <Lizeth Arndt PA-C - Last Filed: 11/04/24 01:23> Surgical History Surgical History: Surgical History H/O: hysterectomy 2007 and 2010 Status post cholecystectomy 2017 <Lizeth Arndt PA-C - Last Filed: 11/04/24 01:23> Family History Family History: Family History Mother Diabetes mellitus Depression Heart disease Lung cancer Hypertension Thyroid disorder Cerebrovascular accident History of heart artery stent CAD Onset in 60's to 70's Acute myocardial infarction 7 stents placed Grandparent Stomach cancer Grandparent Lung cancer Father Hypertension <Lizeth Arndt PA-C - Last Filed: 11/04/24 01:23> Social History Social History: Social History Social History: Patient lives at home with her Evan Carlson Hernandez. 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 She has 2 children that are grown. And there are 2 pets in the house that are Cats. Patient's surrogate will be her Evan Patient wishes to be a full code Smoking packs per day: 1 Smoking cigarettes per day: 20.0 Years smoked: 20 Smoking pack-years: 20.00 Smoking status: Never smoker Tobacco type: cigarettes Second hand tobacco smoke exposure: No Smoking end date: 03/13/21 Additional smoking assessment comments: 1 PPD X 20 YEARS OFF AND ON Alcohol intake: never Substance use: never Substance use type: does not use Do You Feel Safe in your Home?: Yes Lack of Transportation: No Lack of Food: Never True Current Housing: I Have Housing Concerned About Future Housing: No Difficulty Paying Gas/Electric Bills: No Difficulty Paying for Meds: No Currently Unemployed: No Education: High School Diploma/GED Difficulty w/ Childcare or Family Care: No Living arrangements: with family Additional living arrangements comments: to cats Occupation/Education: occupation 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 HEAD: Normocephalic, atraumatic. EYES: EOMI. CHEST: Clear to auscultation. No respiratory distress. No wheezes rales or rhonchi HEART: Regular rate and rhythm. No murmur heard. Normal peripheral pulses. ABDOMEN: Soft, nontender, normal active bowel sounds. Tender to palpation in the right lower quadrant, without guarding EXTREMITIES: Normal range of motion. No edema. SKIN: Warm, dry, no rash. NEURO: No focal deficits. Alert and oriented x3. PSYCH: Normal mood and affect <Lizeth Arndt PA-C - Last Filed: 11/04/24 01:23> Course Course Emergency Course: patient updated on her workup and recommendation for admission <Lizeth Arndt PA-C - Last Filed: 11/04/24 01:23> SPOOL MAKER/PA Physician Supervision For this patient encounter, I reviewed the SPOOL MAKER or PA documentation, treatment plan, and medical decision making and had [id number] time with this patient. I performed all aspects of the MDM as documented. <Jessika Moreno MD - Last Filed: 11/04/24 04:10> Consultations Consultation #1: spoke with hospitalist about patient and workup who accepts admission < Lizeth Arndt PA-C - Last Filed: 11/04/24 01:23> Date: 11/04/24 <VICENTE Middleton Last Filed: 11/04/24 01:23> Consultation #2: spoke with general surgery who will consult <Lizeth Arndt PA-C - Last Filed: 11/04/24 01:23> Date: 11/04/24 <Lizeth Arndt PA-C - Last Filed: 11/04/24 01:23> Vital Signs Vital signs: Vital Signs Temperature 97.4 F L 11/03/24 19:03 Pulse Rate 104 H 11/03/24 19:03 Respiratory Rate 15 11/03/24 19:03 Blood Pressure 150/98 H 11/03/24 19:03 Pulse Oximetry 100 11/03/24 19:03 Oxygen Delivery Room Air 11/03/24 19:03 Temperature 100.8 F H 11/04/24 02:29 Pulse Rate 113 H 11/04/24 02:29 Respiratory Rate 18 11/04/24 02:29 Blood Pressure 114/63 11/04/24 02:29 Pulse Oximetry 91 11/04/24 02:29 Oxygen Delivery Room Air 11/04/24 02:18 <Lizeth Arndt PA-C - Last Filed: 11/04/24 01:23> Vital Signs Temperature 97.4 F L 11/03/24 19:03 Pulse Rate 104 H 11/03/24 19:03 Respiratory Rate 15 11/03/24 19:03 Blood Pressure 150/98 H 11/03/24 19:03 Pulse Oximetry 100 11/03/24 19:03 Oxygen Delivery Room Air 11/03/24 19:03 Temperature 100.8 F H 11/04/24 02:29 Pulse Rate 113 H 11/04/24 02:29 Respiratory Rate 18 11/04/24 02:29 Blood Pressure 114/63 11/04/24 02:29 Pulse Oximetry 91 11/04/24 02:29 Oxygen Delivery Room Air 11/04/24 02:18 <Jessika Moreno MD - Last Filed: 11/04/24 04:10> MDM - Abdominal Pain MDM Narrative Medical decision making narrative: patient presents the emergency department for right lower quadrant pain. History of appendicitis is a couple of years ago. She was managed with antibiotics at that time. Had recurrence of right lower quadrant pain these last couple of days. Reporting fevers at home. Afebrile in the ER and nontoxic appearing. Mildly tachycardic, patient hydrated with IV fluids. CBC with leukocytosis to 18. Metabolic panel and lipase without concerning findings. Urine without evidence of infection. CT abdomen and pelvis shows findings of acute appendicitis. Blood cultures drawn, patient started on IV antibiotics. Spoke with hospitalist about patient and workup who accepts admission. Spoke with general surgery who will consult <Lizeth Arndt PA-C - Last Filed: 11/04/24 01:23> Differential Diagnosis Differential diagnosis: Likely acute appendicitis, calculus of kidney and diverticulitis <Lizeth Arndt PA-C - Last Filed: 11/04/24 01:23> Lab Data Attestation: I reviewed the patient's lab results. <Lizeth Arndt PA-C - Last Filed: 11/04/24 01:23> Result diagrams: 11/03/24 21:42 11/03/24 21:42 <Lizeth Arndt PA-C - Last Filed: 11/04/24 01:23> Labs: Lab Results 11/03/24 11/04/24 Range/Units 21:42 00:06 WBC 18.0 H (4.5-10.0) K/mm3 RBC 4.63 (4.2-5.4) M/mm3 Hgb 13.7 (12.0-15.0) g/dL Hct 41.5 (37.0-47.0) % MCV 89.6 (80-100) fl MCH 29.6 (26-34) pg MCHC 33.0 (32-36) g/dl RDW 13.4 (11.5-14.5) % Plt Count 208 (150-375) k/mm3 MPV 11.9 H (7.4-10.4) fl Immature Gran % (Auto) 0.6 H (0-0.5) % Neut % (Auto) 79.7 H (45.5-73.1) % Lymph % (Auto) 11.2 L (18.3-44.2) % Sumner % (Auto) 5.5 (2.6-8.5) % Eos % (Auto) 2.4 (0-4.4) % Baso % (Auto) 0.6 (0.2-1.2) % Lymph # (Auto) 2.01 (0.9-3.2) K/mm3 Sumner # (Auto) 1.0 H (0.1-0.6) K/mm3 Eos # (Auto) 0.4 H (0-0.3) K/mm3 Baso # (Auto) 0.1 (0.0-0.1) K/mm3 Abs Immat Gran (auto) 0.10 H (0.00-0.031) K/mm3 Absolute Neuts (auto) 14.4 H (1.3-6.7) K/mm3 Absolute Nucleated RBC 0.000 (0.0-0.012) K/mm3 Nucleated RBC % 0.0 (0.0-0.2) % Sodium 138 (137-145) mmol/L Potassium 4.1 (3.4-5.0) mmol/L Chloride 105 (98-107) mmol/L Carbon Dioxide 30 (22-30) mmol/L Anion Gap 3 L (4-12) mmol/L BUN 13 (7-17) mg/dL Creatinine 0.80 (0.7-1.0) mg/dL Estim Creat Clear Calc 73 ml/min Estimated GFR > 60 (59 - ) Glucose 115 H (65-110) mg/dL Calcium 10.0 (8.4-10.2) mg/dL Total Bilirubin 0.6 (0.2-1.3) mg/dL AST 25 (14-36) U/L ALT 21 (6-35) U/L Alkaline Phosphatase 107 (38-126) U/L Total Protein 8.0 (6.3-8.2) g/dL Albumin 4.3 (3.5-5.1) g/dL Lipase 26 (23-300) U/L Urine Color Yellow (Yellow) Urine Appearance Clear (Clear) Urine pH 7.0 (5.0-9.0) Ur Specific Weldon 1.026 (1.001-1.035) Urine Protein Negative (Negative) mg/dL Urine Glucose (UA) Negative (Negative) mg/dL Urine Ketones Negative (Negative) mg/dL Ur Blood (Man) Negative (Negative) Urine Nitrate Negative (Negative) Urine Bilirubin Negative (Negative) Urine Urobilinogen 0.2 (<2.0) mg/dL Add Ur Microanalysis Reviewed Leukocyte Esterase Rfl 1+ H (Negative) KIRAN/UL Urine RBC 3-5 H (0-2) /hpf Urine WBC 0-5 (0-3) /hpf Ur Squamous Epith Cells None seen (Few) /hpf Urine Bacteria None seen /hpf Urine Casts 0-2 <Lizeth Arndt PA-C - Last Filed: 11/04/24 01:23> Lab Results 11/03/24 11/04/24 Range/Units 21:42 00:06 WBC 18.0 H (4.5-10.0) K/mm3 RBC 4.63 (4.2-5.4) M/mm3 Hgb 13.7 (12.0-15.0) g/dL Hct 41.5 (37.0-47.0) % MCV 89.6 (80-100) fl MCH 29.6 (26-34) pg MCHC 33.0 (32-36) g/dl RDW 13.4 (11.5-14.5) % Plt Count 208 (150-375) k/mm3 MPV 11.9 H (7.4-10.4) fl Immature Gran % (Auto) 0.6 H (0-0.5) % Neut % (Auto) 79.7 H (45.5-73.1) % Lymph % (Auto) 11.2 L (18.3-44.2) % Sumner % (Auto) 5.5 (2.6-8.5) % Eos % (Auto) 2.4 (0-4.4) % Baso % (Auto) 0.6 (0.2-1.2) % Lymph # (Auto) 2.01 (0.9-3.2) K/mm3 Sumner # (Auto) 1.0 H (0.1-0.6) K/mm3 Eos # (Auto) 0.4 H (0-0.3) K/mm3 Baso # (Auto) 0.1 (0.0-0.1) K/mm3 Abs Immat Gran (auto) 0.10 H (0.00-0.031) K/mm3 Absolute Neuts (auto) 14.4 H (1.3-6.7) K/mm3 Absolute Nucleated RBC 0.000 (0.0-0.012) K/mm3 Nucleated RBC % 0.0 (0.0-0.2) % Sodium 138 (137-145) mmol/L Potassium 4.1 (3.4-5.0) mmol/L Chloride 105 (98-107) mmol/L Carbon Dioxide 30 (22-30) mmol/L Anion Gap 3 L (4-12) mmol/L BUN 13 (7-17) mg/dL Creatinine 0.80 (0.7-1.0) mg/dL Estim Creat Clear Calc 73 ml/min Estimated GFR > 60 (59 - ) Glucose 115 H (65-110) mg/dL Calcium 10.0 (8.4-10.2) mg/dL Total Bilirubin 0.6 (0.2-1.3) mg/dL AST 25 (14-36) U/L ALT 21 (6-35) U/L Alkaline Phosphatase 107 (38-126) U/L Total Protein 8.0 (6.3-8.2) g/dL Albumin 4.3 (3.5-5.1) g/dL Lipase 26 (23-300) U/L Urine Color Yellow (Yellow) Urine Appearance Clear (Clear) Urine pH 7.0 (5.0-9.0) Ur Specific [place] 1.026 (1.001-1.035) Urine Protein Negative (Negative) mg/dL Urine Glucose (UA) Negative (Negative) mg/dL Urine Ketones Negative (Negative) mg/dL Ur Blood (Man) Negative (Negative) Urine Nitrate Negative (Negative) Urine Bilirubin Negative (Negative) Urine Urobilinogen 0.2 (<2.0) mg/dL Add Ur Microanalysis Reviewed Leukocyte Esterase Rfl 1+ H (Negative) KIRAN/UL Urine RBC 3-5 H (0-2) /hpf Urine WBC 0-5 (0-3) /hpf Ur Squamous Epith Cells None seen (Few) /hpf Urine Bacteria None seen /hpf Urine Casts 0-2 <Jessika Moreno MD - Last Filed: 11/04/24 04:10> Imaging Data Radiologist's impression: CT abdomen and pelvis: the appendix is dilated and inflamed measuring 15 mm with dense stool and/or appendicoliths within it. No signs of perforation or abscess. <Lizeth Arndt PA-C - Last Filed: 11/04/24 01:23> Critical Care Time Critical Care Time Critical Care Time: No <Lizeth Arndt PA-C - Last Filed: 11/04/24 01:23> Discharge Plan Discharge Clinical Impression: Acute appendicitis Qualifiers: Acute appendicitis type: with localized peritonitis Appendicitis gangrene presence: without gangrene Appendicitis perforation presence: without perforation Appendicitis abscess presence: without abscess Qualified Code(s): K 35.30 - Acute appendicitis with localized peritonitis, without perforation or gangrene <Lizeth Arndt PA-C - Last Filed: 11/04/24 01:23> Patient Disposition: Still a Patient <VICENTE Middleton Last Filed: 11/04/24 01:23> Condition: Stable <Lizeth Arndt PA-C - Last Filed: 11/04/24 01:23>
[2024-11-03] MEDS: ONDANSETRON INJ 4 MG/2 ML VIAL IV PUSH (21:45)
[2024-11-03] MEDS: SODIUM CHLORIDE 0.9% IV 1,000 ML 999 ML IV CONT (21:45)
[2024-11-03 21:52] LABS: Basophils Absolute Auto 0.1 K/mm3 (0.0-0.1); Basophils Percent Auto 0.6 % (0.2-1.2); Eosinophils Absolute Auto 0.4 K/mm3 (0-0.3); Eosinophils Percent Auto 2.4 % (0-4.4); Hematocrit 41.5 % (37.0-47.0); Hemoglobin 13.7 g/dL (12.0-15.0); Immature Granulocyte Percent A 0.6 % (0-0.5); Lymphocytes Absolute Auto 2.01 K/mm3 (0.9-3.2); Lymphocytes Percent Auto 11.2 % (18.3-44.2); Mean Corpuscular Hemoglobin 29.6 pg (26-34); Mean Corpuscular Volume 89.6 fl (80-100); Mean Platelet Volume 11.9 fl (7.4-10.4); Monocytes Percent Auto 5.5 % (2.6-8.5); Neutrophils Absolute Auto 14.4 K/mm3 (1.3-6.7); Neutrophils Percent Auto 79.7 % (45.5-73.1); Platelet Count Result 208 k/mm3 (150-375); Red Blood Count 4.63 M/mm3 (4.2-5.4); Red Cell Distribution Width 13.4 % (11.5-14.5)
[2024-11-03] MEDS: HYDROmorphone HCL INJ (*CRX) 1 MG/ML SYR 0.5 MG IV PUSH ×2 (21:54→23:58)
[2024-11-03 22:02] LABS: Alanine Aminotransferase 21 U/L (6-35); Albumin Level 4.3 g/dL (3.5-5.1); Alkaline Phosphatase 107 U/L (38-126); Anion Gap 3 mmol/L (4-12); Aspartate Amino Transferase 25 U/L (14-36); Bilirubin,Total 0.6 mg/dL (0.2-1.3); Blood Urea Nitrogen 13 mg/dL (7-17); Carbon Dioxide 30 mmol/L (22-30); Chloride 105 mmol/L (98-107); Estimated CRCL calculation 73 ml/min; Estimated Glomerular Filt Rate > 60; Glucose 115 mg/dL (65-110); Lipase 26 U/L (23-300); Potassium 4.1 mmol/L (3.4-5.0); Sodium 138 mmol/L (137-145)
[2024-11-04] VITALS (22 sets, daily range): BP systolic 114–159; BP diastolic 51–94; PULSE 104–119; RESP 15–21; TEMP 35.9–39.2; O2SAT 90–97; BMI 33.5
[2024-11-04 00:35] LABS: Add Urine Microscopic? YES; Appearance Urine Clear (Clear); Bacteria Urine None Seen /hpf; Bilirubin Urine Negative (Negative); Blood Urine Negative (Negative); Color Urine Yellow (Yellow); Glucose Urine UA Negative (Negative); Ketones Urine Negative (Negative); Leukocyte Esterase Ur 1+ LEU/UL (Negative); Need Manual Microscopic Reviewed; Nitrate Urine Negative (Negative); Non Pathogenic Casts 0-2; Protein Urine Negative (Negative); Specific Grav Ur 1.026 (1.001-1.035); Squamous Epithelial Cell Urine None Seen /hpf (Few); Urobilinogen Urine 0.2 mg/dL (<2.0); WBC Urine 0-5 /hpf (0-3)
[2024-11-04] MEDS: KETOROLAC 15 MG/ML VIAL (*BKC) IV PUSH (01:04)
[2024-11-04] MEDS: PIPERACILLN/TAZ 3.375GM/NS50ML 3.375 GM/50 ML BAG IVPB ×4 (01:22→20:08)
[2024-11-04] MEDS: SODIUM CHLORIDE 0.9% IV 1,000 ML 125 ML IV CONT ×2 (02:13→08:05)
[2024-11-04] MEDS: ONDANSETRON INJ 4 MG/2 ML VIAL IV PUSH ×2 (02:32→08:05)
[2024-11-04] MEDS: ACETAMINOPHEN 500 MG TABLET 1000 MG PO ×2 (03:04→08:28)
[2024-11-04] MEDS: HYDROmorphone HCL INJ (*CRX) 1 MG/ML SYR IV PUSH ×3 (04:35→11:02)
--- NOTE | 2024-11-04 07:44 | P.HP_ITS ---
H&P: HPI History of Present Illness Date/Time: 11/04/24 07:44 Chief Complaint: Abdominal pain Narrative: 54yo female with HTN here for abdominal pain. About 12 days ago, the patient had a left knee meniscus repair and has been NWB on the left leg since that time. She was having nausea, abdominal pain and myalgias when she develops knee pain and swelling. Over the past 3 days, she has developed recurrent abdominal pain in the right lower quadrant that has become constant. She has been taking Advil and Vicodin for pain for her knee which has dulled the abdominal pain. Abdominal pain is constant and has worsened over time. The abdominal pain radiates up tot he lower chest but this feels like her typical GERD symptoms. She had a LHC in 2020 which showed clean coronaries. She had subjective fevers, nausea and chills. She also with headache and blurry vision when the pain becomes severe. She denies cough, URI symptoms, vomiting, dysuria or hematuria. Patient was seen at [facility] for abdominal pain in [address] scan showing a 9mm appendix and was treated with abx fo possible early acute uncomplicated appendicitis. Patient's abdominal pain worsened and she presented to the ED for evaluation. In the ED, she was hemodynamically stable. Tachycardic (113) and febrile (100.8) but not hypoxic or hypotensive. WBC 18K with mild left shift o/w CBC normal. CMP was essentially normal. Lipase normal. UA showing 1+ LE and 3-5 RBC. Blood and Urine cultures collected. CT Abd/Pelvis with contrast showing mild appendicitis. She was given Zofran, IV fluids, narcotics and Zosyn. She was admitted for furt her care. It should be mentioned that she is concerned about the surgery since she is NWB to the left leg and will have to exert herself to get up with walker. Also she states she needs a root canal and has abx and steroids available if needed but has not required these yet. Review of Systems Review of Systems: All systems reviewed & are unremarkable except as noted in HPI and below PMFSH Past Medical History Medical History (Updated 11/04/24 @ 08:37 by Constantine Mccabe MD) Obesity (BMI 35.0-39.9 without comorbidity) Right nephrolithiasis Abnormal EKG Tobacco use (Unknown) Abnormal EKG Fusion of lumbar spine L3-L4 2017 HTN (hypertension), benign Surgical History Surgical History (Updated 11/04/24 @ 08:33 by Constantine Mccabe MD) H/O: hysterectomy hysterectomy with unilat oopherectomy 2007; cervix removed 2009 Status post cholecystectomy 2016 Family History Family History Mother Diabetes mellitus Depression Heart disease Lung cancer Hypertension Thyroid disorder Cerebrovascular accident History of heart artery stent CAD Onset in 60's to 70's Acute myocardial infarction 7 stents placed Grandparent Stomach cancer Grandparent Lung cancer Father Hypertension Social History Social History (Updated 11/04/24 @ 08:34 by Constantine Mccabe MD) Social History: Patient lives at home with her Evan Carlson Hernandez. 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 She has 2 children that are grown. She has 2 cats She smoked 1ppd x 25 yrs. She quit Sep 2024. No alcohol or drug use. Patient's surrogate will be her Evan Patient wishes to be a full code Smoking packs per day: 1 Smoking cigarettes per day: 20.0 Years smoked: 20 Smoking pack-years: 20.00 Smoking status: Never smoker Tobacco type: cigarettes Second hand tobacco smoke exposure: No Smoking end date: 03/13/21 Additional smoking assessment comments: 1 PPD X 20 YEARS OFF AND ON Alcohol intake: never Substance use: never Substance use type: does not use Do You Feel Safe in your Home?: Yes Lack of Transportation: No Lack of Food: Never True Current Housing: I Have Housing Concerned About Future Housing: No Difficulty Paying Gas/Electric Bills: No Difficulty Paying for Meds: No Currently Unemployed: No Education: High School Diploma/GED Difficulty w/ Childcare or Family Care: No Living arrangements: with family Additional living arrangements comments: to cats Occupation/Education: occupation 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/education comments: 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 Gender identity (if verbalized by the patient): Female Sexual Orientation (if Verbalized by the Patient): Straight or Heterosexual Spiritual care concerns: No Agree to blood products: Yes Meds Home Medications and Allergies Home Medications ?Medication ?Instructions ?Recorded ?Confirmed ?Type aspirin 81 mg chewable tablet 1 tablet PO BID 11/04/24 11/04/24 History hydrocodone 5 mg-acetaminophen 325 1 tablet PO Q4-6H PRN pain 11/04/24 11/04/24 History mg tablet Allergies Allergy/AdvReac Type Severity Reaction Status Date / Time codeine AdvReac Unknown VOMITING Verified 05/23/24 09:12 Vital Signs Vital Signs - 24 hr 11/03/24 19:03 11/04/24 00:15 11/04/24 01:38 Temperature 97.4 F L Pulse Rate 104 H 110 H 105 H Respiratory Rate 15 15 16 Blood Pressure 150/98 H 141/94 H 159/87 H Pulse Oximetry 100 94 96 Oxygen Delivery Room Air 11/04/24 02:18 11/04/24 02:29 11/04/24 04:04 Temperature 100.8 F H 98.2 F Pulse Rate 113 H Respiratory Rate 18 Blood Pressure 114/63 Pulse Oximetry 91 Oxygen Delivery Room Air Exam Narrative: Tm 100.8 98.2 114/63 113 18 91% ra Gen - well appearing female in no acute respiratory distress who is nontoxic- appearing lying semi recumbent in bed HEENT - normocephalic. Atraumatic. Pupils equal round and reactive. Extraoc ular motions intact. Sclera clear and anicteric. Nares patent. Oropharynx was poorly visualized. No oral lesions. Tachy mucous membranes. Tongue was midline. Palate vinicio symmetrically. No facial asymmetry. Neck - neck was supple. No dominant adenopathy, thyromegaly or masses. Chest - lungs are clear to auscultation bilaterally. No wheezes or crackles. Breast exam was deferred. CV - heart was regular rate and rhythm. S1-S2. No murmurs gallops or rubs. Abd - abdomen was soft. Tender in the RLQ. Referred pain but no rebound. Ext - no clubbing, cyanosis or edema. 2+ DP pulses bilaterally. +Homans on the left. 4 small incisions anterior left knee that are clean, dry and intact. No evidence of cellulitis or drainage Neuro - patient is alert and oriented x4. Strength is 5/5 in both upper and lower extremities. Cranial nerves 2-12 are intact. Speech is clear. Psych - normal mood and affect. Patient is pleasant and cooperative. Skin - warm and dry. No rashes noted. H&P: Results Labs Labs: Short CBC 11/03/24 Range/Units 21:42 WBC 18.0 H (4.5-10.0) K/mm3 Hgb 13.7 (12.0-15.0) g/dL Hct 41.5 (37.0-47.0) % Plt Count 208 (150-375) k/mm3 BMP 11/03/24 21:42 Sodium 138 Potassium 4.1 Chloride 105 Carbon Dioxide 30 BUN 13 Creatinine 0.80 Glucose 115 H Calcium 10.0 Liver Function 11/03/24 Range/Units 21:42 Total Bilirubin 0.6 (0.2-1.3) mg/dL AST 25 (14-36) U/L ALT 21 (6-35) U/L Alkaline Phosphatase 107 (38-126) U/L Albumin 4.3 (3.5-5.1) g/dL Urine 11/04/24 Range/Units 00:06 Urine Color Yellow (Yellow) Urine Appearance Clear (Clear) Urine pH 7.0 (5.0-9.0) Ur Specific Prosper 1.026 (1.001-1.035) Urine Protein Negative (Negative) mg/dL Urine Glucose (UA) Negative (Negative) mg/dL Assessment and Plan Assessment and plan (1) Sepsis: Code(s): A41.9 - Sepsis, unspecified organism Status: Acute Assessment and Plan: Patient presents with abdominal pain and found to have tachycardia, fever and leukocytosis consistent with sepsis. CT of the abdomen and pelvis reveal acute appendicitis which is the most likely etiology of her sepsis symptoms. Her upper abdominal pain most likely is GERD/gastritis related to her recent surgery, Advil use and stress from current infection. Patient was given IV fluids in the ED. Blood cultures collected and she was started on Zosyn. General surgery has been consulted. Add Protonix for gastritis. Follow-up on blood and urine cultures. (2) Acute appendicitis: Qualifiers: Acute appendicitis type: with localized peritonitis Appendicitis abscess presence: without abscess Appendicitis gangrene presence: without gangrene Appendicitis perforation presence: without perforation Qualified Code(s): K35.30 - Acute appendicitis with localized peritonitis, without perforation or gangrene Code(s): K35.80 - Unspecified acute appendicitis Status: Acute Assessment and Plan: As above. (3) HTN (hypertension), benign: Code(s): I10 - Essential (primary) hypertension Status: Acute Assessment and Plan: Patient has a history of HTN. Blood pressure elevated on admission related to pain. She is not on antihypertensive medications chronically. Will continue to monitor blood pressure. (4) Right nephrolithiasis: Code(s): N20.0 - Calculus of kidney Status: Acute Assessment and Plan: Patient has a history of right nephrolithiasis. CT scan does not show any evidence of obstructive uropathy. Continue to monitor clinically. (5) Tear meniscus knee: Code(s): S83.209A - Unspecified tear of unspecified meniscus, current injury, unspecified knee, initial encounter Status: Acute Assessment and Plan: Patient is status post left knee meniscus repair about 12 days ago. She is nonweightbearing to the left leg. Positive Homans sign. Check left lower extremity venous Doppler. Start PT and OT when okay with General surgery. (6) Tobacco use: Onset Date: Unknown Code(s): Z72.0 - Tobacco use Status: Acute Assessment and Plan: Patient was congratulated on smoking cessation. Plan DVT prophylaxis -per general surgery Code status -full Hospitalist MIPS Advance Care Plan I have confirmed that the patient's Advanced Care Plan is present, code status is documented, or surrogate decision maker is listed in patient medical record.: Yes Medication Reconciliation I have utilized all available resources to obtain, update and review the patients current medications (includes all prescriptions, OTC, herbals, cannabis, and nutritional supplements).: Yes
--- NOTE | 2024-11-04 10:50 | P.CONGS_ITS ---
Assessment and Plan Assessment and plan (1) Acute appendicitis: Qualifiers: Acute appendicitis type: with localized peritonitis Appendicitis abscess presence: without abscess Appendicitis gangrene presence: without gangrene Appendicitis perforation presence: without perforation Qualified Code(s): K35.30 - Acute appendicitis with localized peritonitis, without perforation or gangrene Code(s): K35.80 - Unspecified acute appendicitis Status: Acute Assessment and Plan: * Patient presents with recurrent acute appendicitis. She was successfully treated nonoperatively in 2020. Her CT scan on admission showed evidence of acute appendicitis with appendicoliths in the appendix. She meets criteria for sepsis and remains febrile. Her abdominal pain has also been difficult to control. The patient's biggest concern was recovering from another surgery while still being NWB following her knee surgery. We discussed both nonoperative versus surgical options at length with her at the beside. Given her sepsis and evidence of appendicoliths on CT, she would not be an ideal candidate for antibiotic therapy and monitoring. She has an increased risk for perforation and treatment failure, and may have delayed response to antibiotic treatment. After a thorough discussion and answering all of her questions, the patient decided to proceed with surgery. I discussed the details of a laparoscopic appendectomy, possible open, under general anesthesia that would be done by Dr. Moyer. Description of the procedure, risks, benefits, alternatives, and expected recovery were discussed. We will keep her NPO with IV fluids for now. Continue IV Zosyn. I will adjust her analgesics for better pain control and add an additional antiemetic due to her persistent nausea. Plan to proceed to the OR urgently today. (2) Sepsis: Code(s): A41.9 - Sepsis, unspecified organism Status: Acute Assessment and Plan: * Patient presents with tachycardia, fever, and leukocytosis in the setting of acute appendicitis. This is most likely the etiology. Continue broad-spectrum IV antibiotics, IV fluids. Proceed to the OR for source control. Blood cx pending. (3) Tear meniscus knee: Code(s): S83.209A - Unspecified tear of unspecified meniscus, current injury, unspecified knee, initial encounter Status: Acute Assessment and Plan: * Postop day 13 following left knee meniscus repair. Reportedly has restrictions to be NWB on left lower extremity x 4 weeks postop. * PT/OT would be appropriate in the postoperative setting. She has 12 stairs to get into her house, but otherwise is on a single level home where she would be able to navigate around her house with help by her . * LLE venous doppler negative. (4) HTN (hypertension), benign: Code(s): I10 - Essential (primary) hypertension Status: Acute (5) GERD (gastroesophageal reflux disease): Code(s): K21.9 - Gastro-esophageal reflux disease without esophagitis Status: Acute Assessment and Plan: * Also with complaints of reflux. Hx of GERD. May be aggravated with recent stress from surgery and NSAID use. She has been started on IV PPI. Plan I have discussed the patient's case and plan of care with Dr. Moyer. Thank you for allowing us to see the patient in consultation and we will continue to follow along with you. History of Present Illness Consult details Consult date: 11/04/24 Reason for consult: other (Acute appendicitis) Requesting physician: Lizeth Arndt PA-C Narrative: This is a 54-year-old woman with PMH of hypertension, who we have been asked to see in surgical consultation for acute appendicitis. She had a left knee meniscus repair on 10/22/24 at [facility] and has been non-weight bearing on her left lower extremity since surgery. She recently had f/u with her Orthopedic surgeon on Monday, without any reported postoperative issues. Later that evening, she began to notice some RLQ abdominal pain. Her abdominal pain progressed overnight and was a constant pain the following day. Her pain was aggravated by movement and bending. She reports having nausea and chills with subjective fever, but has been routinely taking Tylenol, Advil, and a prescription pain pill for her postoperative knee pain that she felt may be masking a fever. She was treated for acute appendicitis with antibiotics in 2020, and reports the pain felt similar but more severe than the previous episode. Due to her persistent symptoms, she came into the ED for evaluation. In the ED, she was tachycardic with HR in the 110's and febrile with temp of 100.8F, but not hypoxic or hypotensive. Labs showed a WBC 18,000. UA showing 1+ LE and 3-5 RBC. Blood and Urine cultures collected. CT Abd/Pelvis with contrast showing acute appendicitis with appendicoliths within the appendix. She was given Zofran, IV fluids, narcotics, and antiemetics. She was admitted and is now seen on the medical floor. Other than her recent surgery, the patient also reports recently having dental caps placed. She is in need of a root canal, but has been postponing this due to the scheduled knee surgery. She was reportedly prescribed antibiotics and steroids if needed if she began to develop pain. She does report starting with some mild tooth pain within the past week, but has not started any of antibiotics or steroids. Review of Systems 2 Review of Systems: All systems reviewed & are unremarkable except as noted in HPI and below PMFSH Past Medical History Medical History Obesity (BMI 35.0-39.9 without comorbidity) Right nephrolithiasis Abnormal EKG Tobacco use (Unknown) Abnormal EKG Fusion of lumbar spine L3-L4 2017 HTN (hypertension), benign Surgical History Surgical History History of colonoscopy Normal colonoscopy in October 2021 History of medial meniscus repair of left knee H/O: hysterectomy hysterectomy with unilat oopherectomy 2007; cervix removed 2009 Status post cholecystectomy 2016 Family History Family History Mother Diabetes mellitus Depression Heart disease Lung cancer Hypertension Thyroid disorder Cerebrovascular accident History of heart artery stent CAD Onset in 60's to 70's Acute myocardial infarction 7 stents placed Grandparent Stomach cancer Grandparent Lung cancer Father Hypertension Social History Social History Social History: Patient lives at home with her Evan araya Aldo Ng. 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 She has 2 children that are grown. She has 2 cats She smoked 1ppd x 25 yrs. She quit Sep 2024. No alcohol or drug use. Patient's surrogate will be her Evan Patient wishes to be a full code Smoking packs per day: 1 Smoking cigarettes per day: 20.0 Years smoked: 20 Smoking pack-years: 20.00 Smoking status: Never smoker Tobacco type: cigarettes Second hand tobacco smoke exposure: No Smoking end date: 03/13/21 Additional smoking assessment comments: 1 PPD X 20 YEARS OFF AND ON Alcohol intake: never Substance use: never Substance use type: does not use Do You Feel Safe in your Home?: Yes Lack of Transportation: No Lack of Food: Never True Current Housing: I Have Housing Concerned About Future Housing: No Difficulty Paying Gas/Electric Bills: No Difficulty Paying for Meds: No Currently Unemployed: No Education: High School Diploma/GED Difficulty w/ Childcare or Family Care: No Living arrangements: with family Additional living arrangements comments: to cats Occupation/Education: occupation 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/education comments: 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 Gender identity (if verbalized by the patient): Female Sexual Orientation (if Verbalized by the Patient): Straight or Heterosexual Spiritual care concerns: No Agree to blood products: Yes Meds Home Medications and Allergies Home Medications ?Medication ?Instructions ?Recorded ?Confirmed ?Type aspirin 81 mg chewable tablet 1 tablet PO BID 11/04/24 11/04/24 History hydrocodone 5 mg-acetaminophen 325 1 tablet PO Q4-6H PRN pain 11/04/24 11/04/24 History mg tablet Allergies Allergy/AdvReac Type Severity Reaction Status Date / Time codeine AdvReac Unknown VOMITING Verified 05/23/24 09:12 Vital Signs Vital Signs - 24 hr 11/03/24 19:03 11/04/24 00:15 11/04/24 01:38 Temperature 97.4 F L Pulse Rate 104 H 110 H 105 H Respiratory Rate 15 15 16 Blood Pressure 150/98 H 141/94 H 159/87 H Pulse Oximetry 100 94 96 Oxygen Delivery Room Air 11/04/24 02:18 11/04/24 02:29 11/04/24 04:04 Temperature 100.8 F H 98.2 F Pulse Rate 113 H Respiratory Rate 18 Blood Pressure 114/63 Pulse Oximetry 91 Oxygen Delivery Room Air 11/04/24 08:23 11/04/24 08:28 Temperature 100.5 F H 100.5 F H Pulse Rate Respiratory Rate Blood Pressure Pulse Oximetry Oxygen Delivery Exam 2 Const: General: comfortable and no acute distress Nutritional Appearance: a verage body habitus Orientation/consciousness: patient oriented x3 HENMT: Head: normocephalic and atraumatic Ears: hearing grossly normal bilaterally Mouth: Yes moist mucous membranes Eyes: General: appearance normal, both eyes and all related structures P upils: Equal, round and reactive pupils present Neck: Neck: normal visual inspection and full ROM Resp: Effort & Inspection: no respiratory distress Auscultation: clear to auscultation bilaterally Cardio: Rate: regular rate Rhythm: regular rhythm Heart sounds: S1 normal heart sound present and S2 normal heart sound present Peripheral pulses: Peripheral pulses 2+ throughout GI: Inspection: non-distended, striae and no visible herniation GI Palp: Y es Soft to palpation, Yes Tenderness to palpation present (GI) (focal RLQ tenderness with mild diffuse tenderness across the upper abdomen), Yes Guarding due to palpation present (GI) (RLQ), Yes No hepatosplenomegaly present and No Rebound tenderness present Auscultation: normal bowel sounds Skin: General skin exam: normal color Neuro: General: moves all extremities and no focal motor deficits Speech: n ormal speech Motor exam (neuro): 5/5 motor strength present throughout Extrem: Right upper extremity: normal to inspection Left upper extremity: n ormal to inspection Right lower extremity: normal to inspection Other: Left lower extremity with knee brace in place and a few small incisions with steri strips in place that are dry and intact, no erythema. Diffuse swelling of the left leg and noted resolving ecchymosis extending down the lower leg. Psych: Mental Status: mental status grossly normal Attitude: cooperative Insight: Good insight present (Psych) Judgement: Good judgement present (Psych) Results Labs 11/03/24 21:42 11/03/24 21:42 Labs: Abnormal lab results 11/03/24 11/04/24 Range/Units 21:42 00:06 WBC 18.0 H (4.5-10.0) K/mm3 MPV 11.9 H (7.4-10.4) fl Immature Gran % (Auto) 0.6 H (0-0.5) % Neut % (Auto) 79.7 H (45.5-73.1) % Lymph % (Auto) 11.2 L (18.3-44.2) % [place] # (Auto) 1.0 H (0.1-0.6) K/mm3 Eos # (Auto) 0.4 H (0-0.3) K/mm3 Abs Immat Gran (auto) 0.10 H (0.00-0.031) K/mm3 Absolute Neuts (auto) 14.4 H (1.3-6.7) K/mm3 Anion Gap 3 L (4-12) mmol/L Glucose 115 H (65-110) mg/dL Leukocyte Esterase Rfl 1+ H (Negative) KIRAN/UL Urine RBC 3-5 H (0-2) /hpf Diabetes panel 11/03/24 Range/Units 21:42 Sodium 138 (137-145) mmol/L Potassium 4.1 (3.4-5.0) mmol/L Chloride 105 (98-107) mmol/L Carbon Dioxide 30 (22-30) mmol/L BUN 13 (7-17) mg/dL Creatinine 0.80 (0.7-1.0) mg/dL Glucose 115 H (65-110) mg/dL Calcium 10.0 (8.4-10.2) mg/dL AST 25 (14-36) U/L ALT 21 (6-35) U/L Alkaline Phosphatase 107 (38-126) U/L Total Protein 8.0 (6.3-8.2) g/dL Albumin 4.3 (3.5-5.1) g/dL Calcium panel 11/03/24 Range/Units 21:42 Calcium 10.0 (8.4-10.2) mg/dL Albumin 4.3 (3.5-5.1) g/dL Pituitary panel 11/03/24 Range/Units 21:42 Sodium 138 (137-145) mmol/L Potassium 4.1 (3.4-5.0) mmol/L Chloride 105 (98-107) mmol/L Carbon Dioxide 30 (22-30) mmol/L BUN 13 (7-17) mg/dL Creatinine 0.80 (0.7-1.0) mg/dL Glucose 115 H (65-110) mg/dL Calcium 10.0 (8.4-10.2) mg/dL Adrenal panel 11/03/24 Range/Units 21:42 Sodium 138 (137-145) mmol/L Potassium 4.1 (3.4-5.0) mmol/L Chloride 105 (98-107) mmol/L Carbon Dioxide 30 (22-30) mmol/L BUN 13 (7-17) mg/dL Creatinine 0.80 (0.7-1.0) mg/dL Glucose 115 H (65-110) mg/dL Calcium 10.0 (8.4-10.2) mg/dL Total Bilirubin 0.6 (0.2-1.3) mg/dL AST 25 (14-36) U/L ALT 21 (6-35) U/L Alkaline Phosphatase 107 (38-126) U/L Total Protein 8.0 (6.3-8.2) g/dL Albumin 4.3 (3.5-5.1) g/dL All other labs normal. Imaging Additional studies: ITS Impressions Abdomen/Pelvis CT 11/04/24 06:51 IMPRESSION: 1. Acute appendicitis. Venous Doppler Study 11/04/24 11:32 IMPRESSION: Negative left lower extremity venous US. No deep vein thrombosis.
[2024-11-04] MEDS: PROCHLORPERAZINE EDISYLATE 10 MG/2 ML VIAL IV PUSH (11:03)
[2024-11-04] MEDS: PANTOPRAZOLE SODIUM IV 40 MG VIAL IV PUSH (11:03)
--- NOTE | 2024-11-04 13:26 | P.PNAN_ITS ---
Anes - Initial Pre Proc Eval Procedure: Operation Date: 11/04/24 14:30 Proposed Procedures p Laparoscopic Appendectomy - Toby Moyer DO Date/Time: 11/04/24 13:26 Surgeon: Elayne Hernandez MD Pre Op Diagnosis: Acute appendicitis Patient Data Age: 54 Gender: F Height: 1.63 m Weight: 88.7 kg Last Vital Signs Temp 39.2 C H 11/04/24 09:26 Pulse 113 H 11/04/24 02:29 Resp 18 11/04/24 02:29 BP 114/63 11/04/24 02:29 Pulse Ox 91 11/04/24 02:29 O2 Del Method Room Air 11/04/24 02:18 Allergies Allergy/AdvReac Type Severity Reaction Status Date / Time codeine AdvReac Unknown VOMITING Verified 05/23/24 09:12 Home Medications ?Medication ?Instructions ?Recorded ?Confirmed ?Type aspirin 81 mg chewable tablet 1 tablet PO BID 11/04/24 11/04/24 History hydrocodone 5 mg-acetaminophen 325 1 tablet PO Q4-6H PRN pain 11/04/24 11/04/24 History mg tablet Laboratory Tests 11/03/24 11/04/24 21:42 00:06 WBC 18.0 H K/mm3 (4.5-10.0) RBC 4.63 M/mm3 (4.2-5.4) Hgb 13.7 g/dL (12.0-15.0) Hct 41.5 % (37.0-47.0) MCV 89.6 fl (80-100) MCH 29.6 pg (26-34) MCHC 33.0 g/dl (32-36) RDW 13.4 % (11.5-14.5) Plt Count 208 k/mm3 (150-375) MPV 11.9 H fl (7.4-10.4) Immature Gran % (Auto) 0.6 H % (0-0.5) Neut % (Auto) 79.7 H % (45.5-73.1) Lymph % (Auto) 11.2 L % (18.3-44.2) [place] % (Auto) 5.5 % (2.6-8.5) Eos % (Auto) 2.4 % (0-4.4) Baso % (Auto) 0.6 % (0.2-1.2) Lymph # (Auto) 2.01 K/mm3 (0.9-3.2) [place] # (Auto) 1.0 H K/mm3 (0.1-0.6) Eos # (Auto) 0.4 H K/mm3 (0-0.3) Baso # (Auto) 0.1 K/mm3 (0.0-0.1) Abs Immat Gran (auto) 0.10 H K/mm3 (0.00-0.031) Absolute Neuts (auto) 14.4 H K/mm3 (1.3-6.7) Absolute Nucleated RBC 0.000 K/mm3 (0.0-0.012) Nucleated RBC % 0.0 % (0.0-0.2) Sodium 138 mmol/L (137-145) Potassium 4.1 mmol/L (3.4-5.0) Chloride 105 mmol/L (98-107) Carbon Dioxide 30 mmol/L (22-30) Anion Gap 3 L mmol/L (4-12) BUN 13 mg/dL (7-17) Creatinine 0.80 mg/dL (0.7-1.0) Estim Creat Clear Calc 73 ml/min Estimated GFR > 60 (59 - ) Glucose 115 H mg/dL (65-110) Calcium 10.0 mg/dL (8.4-10.2) Total Bilirubin 0.6 mg/dL (0.2-1.3) AST 25 U/L (14-36) ALT 21 U/L (6-35) Alkaline Phosphatase 107 U/L (38-126) Total Protein 8.0 g/dL (6.3-8.2) Albumin 4.3 g/dL (3.5-5.1) Lipase 26 U/L (23-300) Urine Color Yellow (Yellow) Urine Appearance Clear (Clear) Urine pH 7.0 (5.0-9.0) Ur Specific [place] 1.026 (1.001-1.035) Urine Protein Negative mg/dL (Negative) Urine Glucose (UA) Negative mg/dL (Negative) Urine Ketones Negative mg/dL (Negative) Ur Blood (Man) Negative (Negative) Urine Nitrate Negative (Negative) Urine Bilirubin Negative (Negative) Urine Urobilinogen 0.2 mg/dL (<2.0) Add Ur Microanalysis Reviewed Leukocyte Esterase Rfl 1+ H KIRAN/UL (Negative) Urine RBC 3-5 H /hpf (0-2) Urine WBC 0-5 /hpf (0-3) Ur Squamous Epith Cells None seen /hpf (Few) Urine Bacteria None seen /hpf Urine Casts 0-2 Patient hx anesthesia problems: none Family hx anesthesia problems: none Results Review: All pre-operative results and documents have been reviewed as part of the pre- operative evaluation. [facility] Past Medical History Medical History (Updated 11/04/24 @ 13:27 by Smooth Wall, ) Fatty liver CINTHYA (obstructive sleep apnea) Obesity (BMI 35.0-39.9 without comorbidity) Right nephrolithiasis Abnormal EKG Tobacco use (Unknown) Abnormal EKG Fusion of lumbar spine L3-L4 2017 HTN (hypertension), benign Surgical History Surgical History History of colonoscopy Normal colonoscopy in October 2021 History of medial meniscus repair of left knee H/O: hysterectomy hysterectomy with unilat oopherectomy 2007; cervix removed 2009 Status post cholecystectomy 2016 Family History Family History Mother Diabetes mellitus Depression Heart disease Lung cancer Hypertension Thyroid disorder Cerebrovascular accident History of heart artery stent CAD Onset in 60's to 70's Acute myocardial infarction 7 stents placed Grandparent Stomach cancer Grandparent Lung cancer Father Hypertension Social History Social History Social History: Patient lives at home with her Evan Carlson Hernandez. 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 She has 2 children that are grown. She has 2 cats She smoked 1ppd x 25 yrs. She quit Sep 2024. No alcohol or drug use. Patient's surrogate will be her Evan Patient wishes to be a full code Smoking packs per day: 1 Smoking cigarettes per day: 20.0 Years smoked: 20 Smoking pack-years: 20.00 Smoking status: Never smoker Tobacco type: cigarettes Second hand tobacco smoke exposure: No Smoking end date: 03/13/21 Additional smoking assessment comments: 1 PPD X 20 YEARS OFF AND ON Alcohol intake: never Substance use: never Substance use type: does not use Do You Feel Safe in your Home?: Yes Lack of Transportation: No Lack of Food: Never True Current Housing: I Have Housing Concerned About Future Housing: No Difficulty Paying Gas/Electric Bills: No Difficulty Paying for Meds: No Currently Unemployed: No Education: High School Diploma/GED Difficulty w/ Childcare or Family Care: No Living arrangements: with family Additional living arrangements comments: to cats Occupation/Education: occupation 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/education 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 Gender identity (if verbalized by the patient): Female Sexual Orientation (if Verbalized by the Patient): Straight or Heterosexual Spiritual care concerns: No Agree to blood products: Yes Anes - Eval Final PreProcedure Day of Procedure 11/04/24 13:26 Patient weight: obese Heart: regular rate and rhythm Lungs: clear to auscultation Airway: Mallampati scale class II Neurological: alert and oriented Last oral intake: >/= 8 hours ASA classification: III Emergent: no Anesthetic plan: proceed Anesthesia type and monitoring: general ETT and standard monitoring Results Review: All pre-operative results and documents have been reviewed as part of the pre- operative evaluation. Informed Consent: The patient's anesthetic plan and its attendant risks and benefits were discussed with the patient/family/POA. Questions were solicited and answers provided to the satisfaction of the patient/family/POA.
--- NOTE | 2024-11-04 13:50 | WPDHPUPDATE1 ---
History and Physical Update Update Date/Time: 11/04/24 13:50 History and Physical has been reviewed, including an updated exam of the patient. There are NO changes in the patient's condition. Risks, benefits, and alternatives have been discussed and questions answered. Patient agrees to proceed with procedure.
[2024-11-04] MEDS: LACTATED RINGERS 1,000 ML 30 ML IV CONT (14:00)
[2024-11-04] MEDS: BUPIVACAINE/EPINEPHRINE 0.5% 30 ML VIAL INFILTRATE (14:50)
--- NOTE | 2024-11-04 15:22 | P.OP_ITS ---
Procedure Note - Detailed Date of Procedure 11/04/24 Pre-op Diagnosis Acute appendicitis Post-op Diagnosis Other (Acute appendicitis, right inguinal hernia) Procedure Performed Laparoscopic appendectomy Surgeon Toby Moyer, DO Anesthesia General and Local (0.5% bupivicaine with epinephrine) Indications This is a 54-year-old woman who presented to the emergency department with right lower quadrant pain that started a couple days ago. She continued to have worsening pain and presented to the ED. a CT was obtained which showed evidence of acute appendicitis [place] [id number]. She was admitted for further treatment and started on broad-spectrum IV antibiotics. Discussions were made with the patient about treatment options and decision was made to proceed with laparoscopic appendectomy, possible open. Findings Laparoscopic appendectomy was performed. The appendix appeared acutely inflamed and was also showing signs of possible early gangrene. There was some surrounding exudate but no clear sign of perforation. There might have been a small micro perforation. There were no signs of abscesses. On inspecting the right lower quadrant I also did notice a small right inguinal hernia. The base of the appendix appeared healthy and viable. The appendix was removed and sent to the lab for pathology. Description of Procedure Procedure as well as risks, benefits, and alternatives were explained to the patient. The patient agreed to proceed. Written consent was obtained and placed in chart prior to procedure. The patient was brought back to surgical suite. S he was placed supine on operating table. Time-out was done to confirm the patient and procedure. The patient was then intubated by the Anesthesia Department. Her abdomen was prepped and draped in sterile fashion using chlorhexidine prep. A 5 mm incision was made just to the left of the patient's umbilicus and a 5 mm Optiview trocar was advanced through the abdominal layers under direct visualization. Once inside the peritoneal cavity, carbon dioxide insufflation was used to create a pneumoperitoneum. The camera was inserted and the abdomen was inspected. No immediate abnormalities were identified. The patient was then placed in slight Trendelenburg position and rotated to the left. A 5 mm incision was made in the suprapubic region in midline and a 5 mm trocar was inserted under direct visualization. A 12 mm incision was made in the left lower quadrant and a 12 mm trocar was inserted under direct visualization. The right lower quadrant was carefully inspected. The cecum was identified and then this was traced back to the appendix. The appendix was identified and grasped at the mesoappendix and lifted anteriorly. Careful blunt dissection was carried out at the base of the appendix through the mesoappendix using a [place] grasper. An Endo-JUSTINO 45 mm blue load stapler was then advanced across the base of the appendix and clamped and fired. A white reload was then clamped across the mesoappendix and fired. This freed up our appendix completely. It was then placed in an EndoCatch bag and removed through the left lower quadrant port. The staple lines were then inspected. Hemostasis appeared adequate and the staple lines appeared secure. The area was then irrigated with sterile saline. The pelvis was then carefully inspected and irrigated with sterile saline as well and the remainder of the abdomen was carefully inspected. The patient was then flattened out in bed. One final inspection was made around the abdominal cavity and no other abnormalities were seen. The left lower quadrant port was removed and a Arcadio-Issac cone was used to approximate the fascia with an 0 Vicryl simple interrupted suture. The remaining ports were then removed under direct visualization. The camera was removed and the pneumoperitoneum was released. 0.5% bupivacaine with epinephrine was infiltrated locally around each of the incisions. The skin of the incisions was then approximated using 4-0 Monocryl subcuticular suture and Exofin glue was applied on top. The patient was then awakened from anesthesia, extubated, and transferred to Recovery. Estimated Blood Loss 10 Urine Output 300 Pathology Yes (Appendix) Complications No immediate complications Condition Stable Disposition Floor [facility] Billing Surgery - Charge Forward: Surgery Billing
[2024-11-04] MEDS: LACTATED RINGERS 1,000 ML 100 ML IV CONT (17:45)
--- NOTE | 2024-11-04 19:03 | PC.NURSE ---
To OR per bed, IV saline locked. Report given to CIARRA Wolfe.
--- NOTE | 2024-11-04 19:03 | PC.NURSE ---
Returned from OR per bed. Report received from CIARRA Young.
[2024-11-05 00:18] VITALS: BP 137/74; PULSE 99; RESP 16; TEMP 36.9; O2SAT 92
[2024-11-05] MEDS: PIPERACILLN/TAZ 3.375GM/NS50ML 3.375 GM/50 ML BAG IVPB ×3 (01:14→13:38)
[2024-11-05] MEDS: HYDROcodone/acetaminophen (*CRX) 5-325 MG TABLET 1 TAB PO ×2 (01:21→11:07)
[2024-11-05] MEDS: ONDANSETRON INJ 4 MG/2 ML VIAL IV PUSH (05:23)
[2024-11-05 05:49] VITALS: BP 126/71; PULSE 97; RESP 16; TEMP 36.6; O2SAT 92
[2024-11-05 06:40] LABS: Hemoglobin 10.5 g/dL (12.0-15.0); Mean Corpuscular HGB Conc 32.8 g/dl (32-36); Mean Corpuscular Hemoglobin 29.7 pg (26-34); Mean Corpuscular Volume 90.4 fl (80-100); Mean Platelet Volume 11.7 fl (7.4-10.4); Platelet Count Result 181 k/mm3 (150-375); Red Blood Count 3.54 M/mm3 (4.2-5.4); Red Cell Distribution Width 13.3 % (11.5-14.5); White Blood Count 23.8 K/mm3 (4.5-10.0)
[2024-11-05 06:59] LABS: Alanine Aminotransferase 19 U/L (6-35); Albumin Level 3.5 g/dL (3.5-5.1); Alkaline Phosphatase 86 U/L (38-126); Anion Gap 2 mmol/L (4-12); Aspartate Amino Transferase 21 U/L (14-36); Bilirubin,Total 0.6 mg/dL (0.2-1.3); Blood Urea Nitrogen 10 mg/dL (7-17); Calcium 8.9 mg/dL (8.4-10.2); Carbon Dioxide 27 mmol/L (22-30); Chloride 108 mmol/L (98-107); Estimated CRCL calculation 75 ml/min; Estimated Glomerular Filt Rate > 60; Glucose 139 mg/dL (65-110); Potassium 4.1 mmol/L (3.4-5.0); Sodium 137 mmol/L (137-145)
[2024-11-05 07:02] LABS: Band Neutrophils Percent 8 % (0-6); Lymphocytes Absolute Manual 1.42 K/mm3 (1.1-4.5); Lymphocytes Percent Manual 6 % (18-44); Monocytes Absolute Manual 0.95 K/mm3 (0.1-0.90); Monocytes Percent Manual 4 % (3-9); Neutrophils Absolute Manual 21.42 K/mm3 (1.7-7.2); Neutrophils Percent Manual 82 % (46-73); Platelet Estimate Adequate (Adequate); Schistocytes None Seen; Total Cells Counted 100
--- NOTE | 2024-11-05 07:03 | PM.PNGS ---
Progress Note: A&P Assessment and Plan (1) Acute appendicitis: Qualifiers: Acute appendicitis type: with localized peritonitis Appendicitis abscess presence: without abscess Appendicitis gangrene presence: with gangrene Appendicitis perforation presence: without perforation Qualified Code(s): K35.31 - Acute appendicitis with localized peritonitis and gangrene, without perforation Code(s): K35.80 - Unspecified acute appendicitis Status: Acute Assessment and Plan: Doing well on POD#1. OK to discharge today. Will send on 10 days abx due to gangrene findings of appendix. Follow up in office in 2 weeks. (2) Right inguinal hernia: Code(s): K40.90 - Unilateral inguinal hernia, without obstruction or gangrene, not specified as recurrent Status: Acute Assessment and Plan: Asymptomatic but patient has noticed a bulge in this location before. She can follow up as outpatient to discuss surgery in future if symptoms develop. Subjective Subjective Date/Time Seen: 11/05/24 07:03 Interval history: Pain much improve. No fevers since before surgery. No nausea/vomiting. Exam GI: Inspection: non-distended and incision (intact with glue) GI Palp: Yes Soft to palpation, Yes Tenderness to palpation present (GI) (RLQ), No Guarding due to palpation present (GI) and No Rebound tenderness present Objective Data Vital Signs Vital Signs: Vital Signs - 24 hr 11/04/24 08:23 11/04/24 08:28 11/04/24 09:26 Temperature 100.5 F H 100.5 F H 102.6 F H Pulse Rate Respiratory Rate Blood Pressure Pulse Oximetry Oxygen Delivery Oxygen Flow Rate 11/04/24 13:30 11/04/24 15:27 11/04/24 15:40 Temperature 99.5 F 98.9 F Pulse Rate 115 H 118 H 114 H Respiratory Rate 18 21 H 19 Blood Pressure 132/60 154/67 H 119/51 L Pulse Oximetry 97 91 90 Oxygen Delivery Nasal Cannula Simple Face Mask Simple Face Mask Oxygen Flow Rate 3 15 15 11/04/24 15:55 11/04/24 16:10 11/04/24 16:15 Temperature Pulse Rate 118 H 119 H Respiratory Rate 20 20 Blood Pressure 139/66 123/67 Pulse Oximetry 91 94 94 Oxygen Delivery Simple Face Mask Simple Face Mask Simple Face Mask Oxygen Flow Rate 15 10 5 11/04/24 16:20 11/04/24 16:25 11/04/24 16:40 Temperature Pulse Rate 114 H 111 H Respiratory Rate 16 17 Blood Pressure 125/70 147/64 H Pulse Oximetry 93 94 Oxygen Delivery Nasal Cannula Nasal Cannula Nasal Cannula Oxygen Flow Rate 2 3 3 11/04/24 16:48 11/04/24 16:49 11/04/24 17:04 Temperature 98.1 F 97.8 F 97.3 F L Pulse Rate 109 H 108 H 104 H Respiratory Rate 17 18 18 Blood Pressure 116/60 127/70 139/63 Pulse Oximetry 94 93 96 Oxygen Delivery Nasal Cannula Oxygen Flow Rate 3 11/04/24 17:34 11/04/24 18:34 11/04/24 20:00 Temperature 98.1 F 96.7 F L 97.9 F Pulse Rate 105 H 104 H 105 H Respiratory Rate 18 18 18 Blood Pressure 148/81 H 149/71 H 136/77 Pulse Oximetry 95 97 92 Oxygen Delivery Oxygen Flow Rate 11/04/24 21:47 11/05/24 00:18 11/05/24 05:49 Temperature 97.9 F 98.5 F 97.8 F Pulse Rate 105 H 99 97 Respiratory Rate 18 16 16 Blood Pressure 136/77 137/74 126/71 Pulse Oximetry 92 92 92 Oxygen Delivery Oxygen Flow Rate Intake/Output Intake/Output: Intake & Output 11/02/24 11/03/24 11/04/24 11/05/24 23:59 23:59 23:59 23:59 Intake Total 1000 983.3 1050 Output Total 300 Balance 1000 683.3 1050 Meds/Results Medications: Active Medications Generic Name Dose Route Start Last Admin Trade Name Freq PRN Reason Stop Dose Admin Hydrocodone Bitart/Acetaminophen 1 tab 11/04/24 16:49 11/05/24 01:21 Hydrocodone/Acetaminophen (*Crx) 5-325 Mg Tablet PO 1 tab Q4H PRN Administration Pain Rated 4-6 Hydrocodone Bitart/Acetaminophen 1 tab 11/04/24 16:49 Hydrocodone/Acetaminophen (*Crx) 7.5-325 Mg Tablet PO Q4H PRN Pain Rated 7-10 Diphenhydramine HCl 25 mg 11/04/24 16:49 Diphenhydramine Hcl Inj 50 Mg/Ml Vial IV PUSH Q6H PRN Itching Enoxaparin Sodium 40 mg 11/05/24 09:00 Enoxaparin 40 Mg/0.4 Ml Syringe SUB-Q DAILY KIRTI Hydromorphone HCl 1 mg 11/04/24 16:49 Hydromorphone Hcl Inj (*Crx) 1 Mg/Ml Syr IV PUSH Q2H PRN Breakthrough Pain Rated 7-10 or NPO Hydromorphone HCl 0.5 mg 11/04/24 16:49 Hydromorphone Hcl Inj (*Crx) 1 Mg/Ml Syr IV PUSH Q2H PRN Breakthrough Pain Rated 4-6 or NPO Piperacillin/Tazobactam/Dextrose 3.375 gm in 50 mls @ 100 mls/hr 11/04/24 08:00 11/05/24 01:44 Zosyn 3.375 Gm/Ns 50 Ml IVPB Infused Q6H KIRTI Infusion Ibuprofen 800 mg in 200 mls @ 400 mls/hr 11/04/24 16:49 Caldolor 800 Mg/200 Ml IVPB Q6H PRN Pain Rated 1-3 IF NPO Ibuprofen 600 mg 11/04/24 16:49 Ibuprofen 600 Mg Tablet PO Q6H PRN Pain Rated 1-3 Naloxone HCl 0.1 mg 11/04/24 16:49 Naloxone Hcl 0.4 Mg/Ml Vial IV PUSH Q2M PRN Opiate Reversal Ondansetron HCl 4 mg 11/04/24 02:17 11/05/24 05:23 Ondansetron Inj 4 Mg/2 Ml Vial IV PUSH 4 mg Q4H PRN Administration Nausea And Vomiting Pantoprazole Sodium 40 mg 11/04/24 09:00 11/04/24 11:03 Pantoprazole Sodium Iv 40 Mg Vial IV PUSH 40 mg QAM KIRTI Administration Prochlorperazine Edisylate 10 mg 11/04/24 10:49 11/04/24 11:03 Prochlorperazine Edisylate 10 Mg/2 Ml Vial IV PUSH 10 mg Q6H PRN Administration Nausea And Vomiting Radiology Results: ITS Impressions Abdomen/Pelvis CT 11/04/24 06:51 IMPRESSION: 1. Acute appendicitis. Venous Doppler Study 11/04/24 11:32 IMPRESSION: Negative left lower extremity venous US. No deep vein thrombosis. Labs Labs: Laboratory Results - last 24 hr 11/05/24 06:24 WBC 23.8 H RBC 3.54 L Hgb 10.5 L D Hct 32.0 L MCV 90.4 MCH 29.7 MCHC 32.8 RDW 13.3 Plt Count 181 MPV 11.7 H Immature Gran % (Auto) Not Reportable Neut % (Auto) Not Reportable Lymph % (Auto) Not Reportable [place] % (Auto) Not Reportable Eos % (Auto) Not Reportable Baso % (Auto) Not Reportable Lymph # (Auto) Not Reportable [place] # (Auto) Not Reportable Eos # (Auto) Not Reportable Baso # (Auto) Not Reportable Abs Immat Gran (auto) Not Reportable Absolute Neuts (auto) Not Reportable Absolute Nucleated RBC Not Reportable Total Counted 100 Neutrophils % (Manual) 82 H Band Neutrophils % 8 H Lymphocytes % (Manual) 6 L Monocytes % (Manual) 4 Nucleated RBC % Not Reportable Abs Neuts (Manual) 21.42 H Abs Lymphs (Manual) 1.42 Abs Monocytes (Manual) 0.95 H Platelet Estimate Adequate Schistocytes None seen Sodium 137 Potassium 4.1 Chloride 108 H Carbon Dioxide 27 Anion Gap 2 L BUN 10 Creatinine 0.80 Estim Creat Clear Calc 75 Estimated GFR > 60 Glucose 139 H Calcium 8.9 Total Bilirubin 0.6 AST 21 ALT 19 Alkaline Phosphatase 86 Total Protein 6.0 L Albumin 3.5
[2024-11-05 08:00] VITALS: BP 129/72; PULSE 87; RESP 16; TEMP 36.8; O2SAT 92
[2024-11-05] MEDS: PANTOPRAZOLE SODIUM IV 40 MG VIAL IV PUSH (08:42)
[2024-11-05] MEDS: ENOXAPARIN 40 MG/0.4 ML SYRINGE SUB-Q (08:42)
[2024-11-05 10:34] VITALS: BP 122/72; PULSE 93; RESP 16; TEMP 36.8; O2SAT 95
--- NOTE | 2024-11-05 13:25 | PM.DS ---
DS: Admitting Diagnosis Discharge Date 11/05/24 Admitting Diagnosis Abdominal pain DS: Discharge Diagnosis Discharge Diagnosis (1) Sepsis: Code(s): A41.9 - Sepsis, unspecified organism Status: Acute (2) Acute appendicitis: Qualifiers: Acute appendicitis type: with localized peritonitis Appendicitis abscess presence: without abscess Appendicitis gangrene presence: with gangrene Appendicitis perforation presence: without perforation Qualified Code(s): K35.31 - Acute appendicitis with localized peritonitis and gangrene, without perforation Code(s): K35.80 - Unspecified acute appendicitis Status: Acute (3) HTN (hypertension), benign: Code(s): I10 - Essential (primary) hypertension Status: Acute (4) Right nephrolithiasis: Code(s): N20.0 - Calculus of kidney Status: Acute (5) Tear meniscus knee: Code(s): S83.209A - Unspecified tear of unspecified meniscus, current injury, unspecified knee, initial encounter Status: Acute (6) Tobacco use: Onset Date: Unknown Code(s): Z72.0 - Tobacco use Status: Acute DS: Summary Hospital Course Reason for hospitalization: 54yo female with HTN here for abdominal pain. Please see H&P for details. Hospital Course: The following issues were addressed: (1) Sepsis: Patient presented with abdominal pain and found to have tachycardia, fever and leukocytosis consistent with sepsis. CT of the abdomen and pelvis reveal acute appendicitis which is the most likely etiology of her sepsis symptoms. Her upper abdominal pain most likely is GERD/gastritis related to her recent surgery, Advil use and stress from current infection. Patient was given IV fluids in the ED. Blood cultures collected and she was started on Zosyn. General surgery was consulted. Protonix added for gastritis. BCx NGTD. Patient was taken to the OR and underwent laparoscopic appendectomy on 11/04/24. She tolerated the procedure well. Pain controlled. WBC was elevated at 18K and worse on repeat at 24K. BCx not negative for 2 days yet so explained that this can become positive still and that she might be called back. She voices understanding and feels ready for discharge. Plan home with abx. (2) Acute appendicitis: As above. (3) HTN (hypertension), benign: Patient has a history of HTN. Blood pressure elevated on admission probably related to pain. She is not on antihypertensive medications chronically. Blood pressure better controlled once pain controlled. (4) Right nephrolithiasis: Patient has a history of right nephrolithiasis. CT scan confirms right nephrolithiasis but no evidence of obstructive uropathy. (5) Tear meniscus knee: Patient is status post left knee meniscus repair about 12 days ago. She is nonweightbearing to the left leg. Positive Homans sign but left lower extremity venous Doppler negative for DVT. (6) Tobacco use: Patient was congratulated on smoking cessation. Patient overall did well and was able to be discharged home on 11/05/24. Could not stop her home oral narcotics due to computer issue. Status at Discharge Cognitive/behavioral status at discharge: stable Time Spent with Patient Time attestation: Total time spent providing and/or coordinating discharge services: 35 minutes Time spent: Greater than 30 minutes Exam Narrative: AF 98.2 122/72 93 16 95% ra Gen - NARD Chest - CTA bilaterally, nml RR CV - RRR S1/S2 Abd - abdomen was soft. Incision sites clean, dry and intake. Ext - no pedal edema. Left knee in brace Psych - normal mood and affect. Skin - warm and dry. DS: Data Data Completed and Pending Pending studies at discharge: Pending at discharge 11/04/24 14:51 Surgical [PTH] Routine Labs on day of discharge: Labs from last 24 hours 11/05/24 06:24 WBC 23.8 H RBC 3.54 L Hgb 10.5 L D Hct 32.0 L MCV 90.4 MCH 29.7 MCHC 32.8 RDW 13.3 Plt Count 181 MPV 11.7 H Immature Gran % (Auto) Not Reportable Neut % (Auto) Not Reportable Lymph % (Auto) Not Reportable [place] % (Auto) Not Reportable Eos % (Auto) Not Reportable Baso % (Auto) Not Reportable Lymph # (Auto) Not Reportable [place] # (Auto) Not Reportable Eos # (Auto) Not Reportable Baso # (Auto) Not Reportable Abs Immat Gran (auto) Not Reportable Absolute Neuts (auto) Not Reportable Absolute Nucleated RBC Not Reportable Total Counted 100 Neutrophils % (Manual) 82 H Band Neutrophils % 8 H Lymphocytes % (Manual) 6 L Monocytes % (Manual) 4 Nucleated RBC % Not Reportable Abs Neuts (Manual) 21.42 H Abs Lymphs (Manual) 1.42 Abs Monocytes (Manual) 0.95 H Platelet Estimate Adequate Schistocytes None seen Sodium 137 Potassium 4.1 Chloride 108 H Carbon Dioxide 27 Anion Gap 2 L BUN 10 Creatinine 0.80 Estim Creat Clear Calc 75 Estimated GFR > 60 Glucose 139 H Calcium 8.9 Total Bilirubin 0.6 AST 21 ALT 19 Alkaline Phosphatase 86 Total Protein 6.0 L Albumin 3.5 Preliminary micro results at discharge 11/04/24 01:22 Blood Culture - Preliminary Blood 11/04/24 01:22 Blood Culture - Preliminary Blood Discharge Plan Discharge Attending physician on discharge: Constantine Mccabe Consulting providers: Toby Hummel Discharging Clinician: Constantine Mccabe Anticipated Discharge Date/Time: 11/05/24 13:41 Patient Disposition: Home, Self-Care Activity: other - see discharge instructions Diet: regular Wound Care Instructions: other - see discharge instructions Discharge Instructions: DISCHARGE INSTRUCTION SHEET FOR HERNIA, GALLBLADDER AND APPENDIX SURGERIES DR. HUMMEL PATIENT TO TAKE HOME 1. May shower in 24 hours, no soaking in bath x 2weeks. 2. Call office for: Wound increasingly painful or bleeding Vomiting Fever of greater than 101 degrees 3. If no bowel movement for three days, take 1 oz. (30 ml) Milk of Magnesia or MiraLax 17g 1 to 2 times daily. 4. No heavy lifting > 10-15 pounds x weeks for hernia repairs and 2 weeks for laparoscopic cholecystectomy or appendectomy. 5. No driving for 3 days or while taking narcotic pain medications. 6. Ice to surgical site for 48 hours (30 min on, then 30 min off). 7. Up walking 10-30 minutes three times per day. 8. Resume previous home medications. 9. Follow-up 10-14 days in office for wound check or as previously scheduled. ([phone]) 10. Oral pain medications prescription to be sent to pharmacy. Take Tylenol 500mg every 6 hours and Ibuprofen 600mg every 6 hours for the first 2 days, then as needed. 11. NUTRITION: Start out by drinking fluids and increase your diet as tolerated. If you experience nausea, try dry toast, crackers, and 7-UP. If nausea or vomiting persists, contact your surgeon?s office. 12. Gallbladders-Low Fat Diet for 2 weeks (send care note of low fat diet) 13. Inguinal Hernias-wear scrotal support for 48 hours 14. Abdominal Hernias-if sent home with abdominal binder, wear for the first 2 weeks (may remove to shower or at night to sleep). Please complete your antibiotic course even if you are starting to feel well. Take precautions to avoid falls. Follow-up with your primary care provider in 1-2 weeks. Please call for appointment. Thank you for using [facility] for your health care needs. Revised March 2019 Patient Instructions: Antibiotic Form Patient Language: Romansh Stand Alone Forms: General Discharge Information Follow-up/Referrals: PHYSICIAN,DIRECTOR OF HOUSING [Primary Care Provider] - Toby Hummel DO [Physician] - Call for Appointment Discharge Medications: New hydrocodone-acetaminophen 5-325 mg tablet 1 - 2 tablet PO Q4H PRN (Reason: pain) Qty: 15 0RF metronidazole 500 mg tablet 500 mg PO Q8H 10 Days Qty: 30 0RF amoxicillin-pot clavulanate 875-125 mg tablet 1 tablet PO Q12H 10 Days Qty: 20 0RF Continued aspirin 81 mg tablet,chewable 1 tablet PO BID No Action hydrocodone-acetaminophen 5-325 mg tablet 1 tablet PO Q4-6H PRN (Reason: pain) Date of admission: 11/04/24 00:50 Primary Care Provider: PHYSICIAN,DIRECTOR OF HOUSING Admitting Provider: Elayne Hernandez V. Attending physician on admission: Elayne Hernandez V. Condition: Stable Hospitalist MIPS Heart Failure (Exclusion) Patient has history of Heart Transplant or Left Ventricular Assistive Device?: No IF YES, STOP HERE Heart Failure (Qualifier) Patient has current or prior documentation of LVEF less than or equal to 40%, or mod/servere depressed LVSF?: No IF NO, STOP HERE
== END 2024-11-05 14:57 | disposition home or self-care (01) ==
LOC: ANHED 11-04 01:18 → ANH3MEDSUR 11-04 07:27
PROVIDERS: Surgery; Admitting Provider Internal Medicine; Emergency Provider Physician Assistant; Visit Provider Internal Medicine
PROC: 0DTJ4ZZ Resection of Appendix, Percutaneous Endoscopic Approach (ICD-10-PCS; CPT 44970; principal; 2024-11-04 14:30)
DX: A41.9 Sepsis, unspecified organism (principal); K35.32 Acute appendicitis with perforation, localized peritonitis, and gangrene, without abscess; K40.90 Unilateral inguinal hernia, without obstruction or gangrene, not specified as recurrent; M79.89 Other specified soft tissue disorders; Z98.890 Other specified postprocedural states; I10 Essential (primary) hypertension; N20.0 Calculus of kidney; K21.9 Gastro-esophageal reflux disease without esophagitis; E66.9 Obesity, unspecified; Z68.33 Body mass index [BMI] 33.0-33.9, adult; Z87.891 Personal history of nicotine dependence; Z90.710 Acquired absence of both cervix and uterus; Z90.721 Acquired absence of ovaries, unilateral; Z90.49 Acquired absence of other specified parts of digestive tract; Z98.1 Arthrodesis status
CPT/HCPCS: 44970; 36415; 74177; 80053; 81001; 83690; 85025; 87040; 87086; 88304; 93971; 96361; 96365; 96366; 96372; 96374; 96375; 96376; 99285; A9270; G0378; J0780; J1100; J1171; J1650; J1885; J2250; J2405; J2470; J2543; J2704; J3010; J7030; J7120; Q9967

== ENCOUNTER 2025-06-13 17:25 | Emergency (ER) | payer OTHER, SELFPAY ==
[2025-06-13] VITALS (18 sets, daily range): BP systolic 132–158; BP diastolic 65–83; PULSE 58–83; RESP 10–21; TEMP 36.6; O2SAT 93–100
--- NOTE | ~2025-06-13 | CT_ITS ---
EXAMINATION: CT abdomen pelvis w con DATE: 06/13/2025 19:40 INDICATION: RLQ pain, firmness, hx hernia? constipation TECHNIQUE: Computed tomography (CT) of the abdomen and pelvis was performed with 100 mL Omnipaque-350 intravenous contrast. Automated exposure control and iterative reconstruction technique were employe d. The dose-length product was 423.84 mGy-cm. COMPARISON: 11/03/2024. FINDINGS: Lower thorax: Dependent scar/atelectasis. Liver: Normal. Biliary/Gallbladder: Gallbladder is absent. Mild intra and extrahepatic bile duct dilation, probably secondary to cholecystectomy and stable. Pancreas: No mass or duct dilation. Spleen: Normal. Adrenals:2.6 cm indeterminate density right adrenal mass, with slightly dense internal foci may repre sent enhancement, calcification, or hemorrhage. Kidneys: No suspicious mass, obstructing stone, or hydronephrosis. GI tract: Mild distal esophageal and gastric wall edema. Mild transverse and descending colonic wall edema. No small or large bowel dilation. Surgically absent appendix. Diverticulosis without diverticu litis. Mesentery/Peritoneum: No ascites, mass, or free air. Retroperitoneum: No mass. Atherosclerotic calcifications of intra-abdominal arterial vessels. Pelvis: Normal urinary bladder. Absent uterus. Normal ovaries. Soft Tissues: Moderate fat and fluid containing right lateral abdominal wall hernia with inflammatory stranding. Small uncomplicated appearing fat-containing of local and bilateral inguinal hernias. Bones: No acute osseous finding. Uncomplicated appearing L4-5 posterior fusion hardware. IMPRESSION: Mild subtle/gastritis. 2.5 cm, complex, indeterminate density right adrenal mass, demonstrating slow interval growth and pot ential interval hemorrhage. Recommend timely outpatient adrenal CT or MRI for further evaluation. Mild transverse and descending colonic wall edema as can be seen with colitis. Moderate sized fat and fluid containing right inferolateral abdominal wall hernia, with inflammatory changes. Reviewed, dictated and finalized at location K. IMPRESSION: Mild subtle/gastritis. 2.5 cm, complex, indeterminate density right adrenal mass, demonstrating slow i nterval growth and potential interval hemorrhage. Recommend timely outpatient a drenal CT or MRI for further evaluation. Mild transverse and descending colonic wall edema as can be seen with colitis. Moderate sized fat and fluid containing right inferolateral abdominal wall adriano ia, with inflammatory changes.
--- OUTSIDE RECORDS SUMMARY | 2025-06-13 17:28 | XMS_ITS | Continuity of Care Document ---
Author Name [facility] Organization [facility] Care Team Providers Care Planning Lead Name Role Phone [facility] Unavailable Unavailable Problems Combined list of problems from Department of Defense and [facility] facilities. It does not include entries that were removed or entered in error. Problem Status Onset Date Problem Type Date of Resolution Comments Source visit for: administrative purpose Active Condition [facility] abdominal pain in the left lower belly (LLQ) Active Condition [facility] abdominal pain Active Condition [facility] visit for: postsurgical exam Active Condition Well heale d - doing well [facility] MENORRHAGIA Active Condition Benign pathology - adenomyosis. [facility] Medications Combined list of outpatient medications from Department of Defense and [facility] facilities.Medications provided include 1) outpatient medications from the last 15 months, and 2) patient-reported medications. Medication Details Route Status Patient Instructions Prescription Expires Prescription Number Last Dispense Date Ordering Provider Order Date Order Qty Source AZITHROMYCI N (azithromyc in), 250 MG, TABLET, ORAL, [facility], 6 ea. BLIST PACK Active [id number] 2023 6 Pharmac y Data Transac tion Service Facilit y Allergies, Adverse Reactions, Alerts Combined list of allergies from Department of Defense and Veterans Affairs facilities. It does not include entries that were removed or entered in error. Substance Category Reaction Severity Reaction type Status Date Reported Comments Source No Known Allergies Drug allergy (disorder) active 02/29/[address] [place] [address] [place] [facility] Encounters Combined list of: 1) Encounters from Department of Veterans Affairs facilities going backup to the last 18 months, not all VA inpatient encounters are included; 2) Encounters from the Department of Defense facilities going backup to 280 months. Location Location Details Encounter Type Encounter Number Reason For Visit Attending Provider ADM Date DC Date Status Disposition Source [address] [place] [address] [place] [facility]Foot And Ankle Surgeon ecology) OUTPATIENT [id number] Pas entered the order FLORIN MALONEY 11/20 Released w/o Limitations [address] [place] [address] [place] [place] y[place]colo gy[place] [address] [place] [address] Ross THOMASB [place]Foot And Ankle Surgeon ecology) TELE CONSULT [id number] No show for pre-morena ting. FLORIN MALONEY 12/[address] [place] [address] [employer] [place]G ynecolo gy[place] [address] [place] [address] [place] B [facility]Foot And Ankle Surgeon ecology) OUTPATIENT [id number] f/u partial hystere ctomy FLORIN MALONEY 02/28 Released w/o Limitations [address] [place] [address] [employer] [facility]G ynecolo gy) [address] [place] [address] [place] B [facility]Foot And Ankle Surgeon ecology) OUTPATIENT [id number] pt had partial hystere ctomy but is having period [id number] FLORIN MALONEY 03/27 Released w/o Limitations [address] [place] [address] [place] B [facility]G ynecolo gy) [address] [place] [address] [employer] [facility]Ob/ Foot And Ankle Surgeon) TELE CONSULT [id number] radiolo gy results RUBEN ZAPATA Ezio 04/[address] [place] [address] [place] B [facility]O b/Foot And Ankle Surgeon) [address] [place] [address] [place] B [facility]Ob/ Foot And Ankle Surgeon) TELE CONSULT [id number] adminis trative RUBEN ZAPATA Ezio 05/[address] [place] [address] [place] B [facility]O b/Foot And Ankle Surgeon) Procedures Combined list of: 1) Procedures from Department of Veterans Affairs facilities going back up to thelast 18 months, not all VA non-surgical procedures are included; 2) All procedures from the Department of Defense facilities. Procedure Procedure Type Code Date Perfomer Comments Kobi jiang Endometrial Biopsy By Suction Endometrial Biopsy By Suction [id number] 11/20/2007 FLORIN MALONEY [facility] ENDOMETRIAL SAMPLING (BIOPSY) WITH OR WITHOUT ENDOCERVICAL SAMPLING (BIOPSY), WITHOUT CERVICAL DILATION, ANY METHOD (SEPARATE PROCEDURE) 11/20/2007 [facility] Social History Combined list of available smoking, tobacco, and other social history from Department of Defense and Veterans Affairs facilities. Social History Type Response Date Comment Kobi jiang This section is an empty social history section. [facility]
--- OUTSIDE RECORDS SUMMARY | 2025-06-13 17:30 | XMS_ITS | Clinical Summary ---
Author Organization [facility] Address [address] [place] [address] Care Team Providers Care Electron Gun Assembler Name Role Phone Mil Farmer MD Primary Care Provider [phone] Source Comments [facility],non-owned Affiliates and Associated Physician Practices is amultiple site organization consisting of ambulatory clinics and hospital sitesin [place], [place], [place] and [place]. This disclosure is being madepursuant to the Care Everywhere program and may not contain all information available regarding this patient. 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 Gender Identity Not on file Sexual Orientation Not on file Plan of Treatment Health Maintenance Due Date Last Done Comments COLOGUARD (AGES 45-75) - COL ON CA SCREENING 1970 COLON MONITORING 1970 COLONOSCOPY - COLON CA SCREENING 1970 CT COLONOGRAPHY - COLON CA SCREENING 1970 Colorectal Cancer Screening 1970 FIT - COLON CA SCREENING 1970 FLEX SIG - COLON CA SCREENING 1970 LIPID TESTING 1970 MAMMOGRAM 1970 HIV SCREENING 1985 HEPATITIS C SCREENING 06/17/1988 DTAP/TDAP/TD VACCINES (1 - Tdap) 1989 HEPATITIS B VACCINE (1 of 3 - 19+ 3-dose series) 1989 PAP SMEAR 1991 PNEUMOCOCCAL VACCINE 50+ (1 of 1 - PCV) 2020 ZOSTER VACCINE (1 of 2) 2020 COVID-19 VACCINE (1 - 2023-2 5 season) 2024 DEPRESSION SCREENING 11/13/2024 INFLUENZA VACCINE (#1) 2025 HIB VACCINE Aged Out No longer eligi ble based on patient's age to complete this topic HPV VACCINE Aged Out No longer eligi ble based on patient's age to complete this topic MENINGOCOCCAL (Group B) VACC INE SHARED DECISION-MAKING Aged Out No longer eligibl e based on patient's age to complete this topic MENINGOCOCCAL GROUPS A/C/Y/W VACCINE Aged Out No longer eligible b ased on patient's age to complete this topic Insurance SELF PAY NO INSURANCE Member Subscriber Plan / Payer (Ef fective for All Dates) Name:Luis Mendez Member ID:Not on file Relation to Subscriber:Not on file Name:LUIS MENDEZ Subscriber ID:Not on file (Home) Address: [place] [address] Payer ID:Not on file Group ID:Not on file Type:Self Pay Address: [place], [place] [employer] Care Teams Electron Gun Assembler Relationship Specialty Start Date End Date Temporal, Mil Guzmán MD [address] [place] [address] [address] [place] [address] PCP - General 10/11/10
--- OUTSIDE RECORDS SUMMARY | 2025-06-13 17:31 | XMS_ITS | Clinical Summary ---
Author Organization [facility] Address [address] [place] [id number] Care Team Providers Care Associate Professor Of Art Name Role Phone Unavailable Primary Care Provider Unavailabl e Social History Tobacco Use Types Packs/Day Years Used Date Smoking Tobacco: Never Assessed Comments Unknown Sex and Gender Information Value Date Recorded Sex Assigned at Not on file Legal Sex Female 7:09 PM CDT Gender Identity Not on file Sexual Orientation Not on file Plan of Treatment Health Maintenance Due Date Last Done Comments Cervical Cancer Screening Pa p Smear (Age 30 to 64) Every 3 Years 1970 Colorectal Cancer Screening Colonoscopy (10 Years) 1970 Annual Physical 1973 Hepatitis C 1988 DTaP, Tdap and Td Vaccines ( 1 - Tdap) 1989 Hepatitis B Vaccines (1 of 3 - 19+ 3-dose series) 1989 Cervical Cancer Screening Pa p with HPV Testing (Age 30 to 64) Every 5 Years 2000 Cervical Cancer Screening with HPV 2000 Mammogram Screening 2010 Pneumococcal Vaccine: 50+ Ye ars (1 of 1 - PCV) 2020 Zoster Vaccines (1 of 2) 2020 COVID-19 Vaccine (2023-2 5 season) 2024 Meningococcal B Vaccine Aged Out No l onger eligible based on patient's age to complete this topic Meningococcal Vaccine Aged Out No pradeep ceasar eligible based on patient's age to complete this topic RSV Immunizations Under 20 Months Aged Out No longer eligible based on patient's age to complete this topic
--- OUTSIDE RECORDS SUMMARY | 2025-06-13 18:00 | XMS_ITS | Clinical Summary ---
Author Organization [facility] Address [address] [place] [address] Care Team Providers Care Tractor Trailer Moving Van Driver Name Role Phone Mil Farmer MD Primary Care Provider [phone] Source Comments [facility],non-owned Affiliates and Associated Physician Practices is amultiple site organization consisting of ambulatory clinics and hospital sitesin [place], [place], [place] and [place]. This disclosure is being madepursuant to the Care Everywhere program and may not contain all information available regarding this patient. 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 Gender Identity Not on file Sexual Orientation [...] patient's age to complete this topic Insurance [employer] Address: [facility] [address] [place] [address] SELF PAY NO INSURANCE Member Subscriber Plan / Payer (Ef fective for All Dates) Name:Luis Mendez Member ID:Not on file Relation to Subscriber:Not on file Name:LUIS MENDEZ Subscriber ID:Not on file (Home) Address: [place] [address] Payer ID:Not on file Group ID:Not on file Type:Self Pay Address: [place], [place] [employer] Care Teams Tractor Trailer Moving Van Driver Relationship Specialty Start Date End Date Temporal, Mil Guzmán MD [address] [place] [address] [address] [place] [address] PCP - General 10/11/10
--- OUTSIDE RECORDS SUMMARY | 2025-06-13 18:00 | XMS_ITS | Continuity of Care Document ---
Author Name [facility] Organization [facility] Care Team Providers Care Material Engineer Name Role Phone [facility] Unavailable Unavailable Problems Combined list of problems from Department of Defense and [facility] facilities. It does not include entries that were removed or entered in error. Problem Status Onset Date Problem Type Date of Resolution Comments Source visit for: administrative purpose Active Condition [facility] abdominal pain in the left lower belly (LLQ) Active Condition DoD abdominal pain Active Condition [facility] visit for: postsurgical exam Active Condition Well heale d - doing well DoD MENORRHAGIA Active Condition Benign pathology - adenomyosis. [facility] Medications Combined list of outpatient medications from Department of Defense and [facility] facilities.Medications provided include 1) outpatient medications from the last 15 months, and 2) patient-reported medications. Medication Details Route Status Patient Instructions Prescription Expires Prescription Number Last Dispense Date Ordering Provider Order Date Order Qty Source AZITHROMYCI N (azithromyc in), 250 MG, TABLET, ORAL, [facility], 6 ea. BLIST PACK Active [id number] 2023 6 Pharmac y Data Transac tion Service Facilit y Allergies, Adverse Reactions, Alerts Combined list of allergies from Department of Defense and Veterans Affairs facilities. It does not include entries that were removed or entered in error. Substance Category Reaction Severity Reaction type Status Date Reported Comments Source No Known Allergies Drug allergy (disorder) active 02/29/[address] [place] [address] [place] CRUZ [facility]) Encounters Combined list of: 1) Encounters from Department of Veterans Affairs facilities going backup to the last 18 months, not all VA inpatient encounters are included; 2) Encounters from the Department of Defense facilities going backup to 280 months. Location Location Details Encounter Type Encounter Number Reason For Visit Attending Provider ADM Date DC Date Status Disposition Source [address] [place] [address] Ross CRUZ [facility]) OUTPATIENT [id number] Pas entered the order FLORIN MALONEY 11/20 Released w/o Limitations [address] [place] [address] Ross CRUZ ([facility]G ynecolo gy) [address] [place] [address] Ross THOMASB ([facility]) TELE CONSULT [id number] No show for pre-morena ting. FLORIN MALONEY 12/[address] [place] [address] [employer] ([facility]G ynecolo gy) [address] [place] [address] Ross B [facility]) OUTPATIENT [id number] f/u partial hystere ctomy FLORIN MALONEY 02/28 Released w/o Limitations [address] [place] [address] [employer] [facility]G ynecolo gy) [address] [place] [address] Ross B [facility]) OUTPATIENT [id number] pt had partial hystere ctomy but is having period [id number] FLORIN MALONEY 03/27 Released w/o Limitations [address] [place] [address] Ross B [facility]G ynecolo gy) [address] [place] [address] [employer] [facility])(Ob/ [facility]ainer) TELE CONSULT [id number] radiolo gy results RUBEN ZAPATA Ezio 04/[address] [place] [address] Ross B [facility]O b/Children[facility]S Entertainer) [address] [place] [address] Ross B [facility])(Ob/ [facility]ainer) TELE CONSULT [id number] adminis trative RUBEN ZAPATA Ezio 05/[address] [place] [address] Ross B [facility]O b/[facility]) Procedures Combined list of: 1) Procedures from Department of Veterans Affairs facilities going back up to thelast 18 months, not all VA non-surgical procedures are included; 2) All procedures from the Department of Defense facilities. Procedure Procedure Type Code Date Perfomer Comments Kobi jiang Endometrial Biopsy By Suction Endometrial Biopsy By Suction [id number] 11/20/2007 FLORIN MALONEY [facility] ENDOMETRIAL SAMPLING (BIOPSY) WITH OR [...]
--- OUTSIDE RECORDS SUMMARY | 2025-06-13 18:00 | XMS_ITS | Clinical Summary ---
Author Organization [facility] Address [address] [place] [address] Care Team Providers Care Sustainability Director Name Role Phone Unavailable Primary Care Provider [...]
[2025-06-13 18:06] LABS: Hematocrit 44.9 % (37.0-47.0); Hemoglobin 14.7 g/dL (12.0-15.0); Immature Granulocyte Percent A 0.4 % (0-0.5); Lymphocytes Absolute Auto 3.03 K/mm3 (0.9-3.2); Mean Corpuscular HGB Conc 32.7 g/dl (32-36); Mean Corpuscular Hemoglobin 29.1 pg (26-34); Mean Corpuscular Volume 88.9 fl (80-100); Nucleated Red Blood Cells Absolute Auto 0.000 K/mm3 (0.0-0.012); Nucleated Red Blood Cells Perc 0.0 % (0.0-0.2); Platelet Count Result 191 k/mm3 (150-375); Red Blood Count 5.05 M/mm3 (4.2-5.4); White Blood Count 12.0 K/mm3 (4.5-10.0)
[2025-06-13 18:19] LABS: Alanine Aminotransferase 18 U/L (6-35); Albumin Level 4.3 g/dL (3.5-5.1); Alkaline Phosphatase 94 U/L (38-126); Anion Gap 5 mmol/L (4-12); Aspartate Amino Transferase 27 U/L (14-36); Bilirubin,Total 0.6 mg/dL (0.2-1.3); Blood Urea Nitrogen 7 mg/dL (7-17); Calcium 9.6 mg/dL (8.4-10.2); Carbon Dioxide 25 mmol/L (22-30); Chloride 104 mmol/L (98-107); Estimated CRCL calculation 56 ml/min; Estimated Glomerular Filt Rate > 60; Glucose 97 mg/dL (65-110); Lipase 33 U/L (23-300); Potassium 3.6 mmol/L (3.4-5.0); Sodium 134 mmol/L (137-145); Total Protein 7.5 g/dL (6.3-8.2)
[2025-06-13 18:52] LABS: BEDSIDEPREGUCG Negative (Negative)
[2025-06-13 19:06] LABS: Add Urine Microscopic? YES; Appearance Urine Clear (Clear); Glucose Urine UA Negative (Negative); Leukocyte Esterase Ur Trace LEU/UL (Negative); Nitrate Urine Negative (Negative); Non Pathogenic Casts 0-2; Specific Grav Ur 1.009 (1.001-1.035)
[2025-06-13] MEDS: HYDROmorphone HCL INJ (*CRX) 2 MG/ML VIAL 0.5 MG IV PUSH (19:06)
[2025-06-13] MEDS: ONDANSETRON INJ 4 MG/2 ML VIAL IV PUSH (19:06)
--- NOTE | 2025-06-13 19:22 | ED_ITS ---
HPI - Abdominal Pain General Chief Complaint: Abdominal Pain Stated Complaint: hernia pain Time Seen by Provider: 06/13/25 17:46 Source: patient Mode of arrival: ambulatory Limitations: no limitations History of Present Illness HPI narrative: Patient is a 54-year-old female who presents the ED with report of right lower abdominal pain. Patient reports history of what she believes to be a right inguinal hernia. She states she had appendicitis in October last year and was found to have a hernia at that time. Was told to have outpatient follow-up with General surgery. Patient states she is typically able to push the bulge back in, however over the past week, she has had trouble getting the bulge back in. Reports increasing pain. Reports she has had alternating diarrhea/constipation this week. Has been taking laxatives at home with some relief. Reports nausea related to the pain. Denies vomiting. Denies fevers. Denies urinary complaints. Related Data Home Medications ?Medication ?Instructions ?Recorded ?Confirmed ?Last Taken ?Type tirzepatide 5 mg/0.5 mL 5 mg subcut WEEKLY 06/05/25 06/05/25 Unknown History subcutaneous pen injector (Mounjaro) Allergies Allergy/AdvReac Type Severity Reaction Status Date / Time codeine AdvReac Unknown VOMITING Verified 06/13/25 17:26 Review of Systems 2 Review of Systems: All systems reviewed & are unremarkable except as noted in HPI. All systems reviewed & are unremarkable except as noted in HPI and below PMFSH Past Medical History Medical History Right inguinal hernia Fatty liver CINTHYA (obstructive sleep apnea) Obesity (BMI 35.0-39.9 without comorbidity) Right nephrolithiasis Abnormal EKG Tobacco use (Unknown) Abnormal EKG Fusion of lumbar spine L3-L4 2017 HTN (hypertension), benign Surgical History Surgical History History of laparoscopic appendectomy 11/04/[address] Moyer History of colonoscopy Normal colonoscopy in October 2021 History of medial meniscus repair of left knee H/O: hysterectomy hysterectomy with unilat oopherectomy 2007; cervix removed 2009 Status post cholecystectomy 2017 Family History Family History Mother Diabetes mellitus Depression Heart disease Lung cancer Hypertension Thyroid disorder Cerebrovascular accident History of heart artery stent CAD Onset in 60's to 70's Acute myocardial infarction 7 stents placed Grandparent Stomach cancer Grandparent Lung cancer Father Hypertension Social History Social History Social History: Patient lives at home with her Evan Ng. 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 She has 2 children that are grown. She has 2 cats She smoked 1ppd x 25 yrs. She quit Sep 2024. No alcohol or drug use. Patient's surrogate will be her Evan Patient wishes to be a full code Smoking packs per day: 1 Smoking cigarettes per day: 20.0 Years smoked: 20 Smoking pack-years: 20.00 Smoking status: Never smoker Tobacco type: cigarettes Second hand tobacco smoke exposure: No Smoking end date: 03/13/21 Additional smoking assessment comments: 1 PPD X 20 YEARS OFF AND ON Alcohol intake: never Substance use: never Substance use type: does not use Do You Feel Safe in your Home?: Yes Lack of Transportation: No Lack of Food: Never True Current Housing: I Have Housing Concerned About Future Housing: No Difficulty Paying Gas/Electric Bills: No Difficulty Paying for Meds: No Currently Unemployed: No Education: High School Diploma/GED Difficulty w/ Childcare or Family Care: No Living arrangements: with family Additional living arrangements comments: to cats Occupation/Education: occupation 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/education comments: 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 HEAD: Normocephalic, atraumatic. RESPIRATORY: Airway patent, respirations nonlabored. Clear to auscultation bilaterally, no rales, rhonchi, wheezing. CARDIOVASCULAR: Regular rate and rhythm without murmurs, rubs, or gallops. ABDOMINAL: Soft, tenderness throughout right lower abdomen with slightly palpable bulging region, nondistended. Normoactive BS. No appreciable inguinal hernia. MUSCULOSKELETAL: Moves all extremities. No gross deformities. SKIN: Warm, dry, normal color. NEURO: A&O X3. Speech clear. Cranial nerves II-XII grossly intact. Steady gait. No ataxic movements. PSYCHIATRIC: Appropriate mood and affect. Normal interaction. Course Vital Signs Vital signs: Vital Signs Temperature 97.9 F 06/13/25 17:27 Pulse Rate 83 06/13/25 17:27 Respiratory Rate 18 06/13/25 17:27 Blood Pressure 132/65 06/13/25 17:27 Pulse Oximetry 99 06/13/25 17:27 Oxygen Delivery Room Air 06/13/25 17:27 Temperature 97.9 F 06/13/25 17:27 Pulse Rate 59 L 06/13/25 22:46 Respiratory Rate 20 06/13/25 22:46 Blood Pressure 136/70 06/13/25 22:46 Pulse Oximetry 97 06/13/25 22:46 Oxygen Delivery Room Air 06/13/25 17:27 MDM - Abdominal Pain MDM Narrative Medical decision making narrative: Patient presented to ED with right lower abdominal pain, concern for hernia which she has previously been diagnosed with. Reports over past week, she had trouble reducing hernia back in. Reports diarrhea/constipation this week. Vital signs are stable upon arrival. Patient is afebrile. Mildly uncomfortable appearing. Will give pain control and attempt reduction. Laboratory studies with white count of 12. CMP is unremarkable. UA is clear. is negative. CT scan of abdomen/pelvis was obtained and showing evidence of colitis as well as moderate sized fat and fluid containing abdominal wall hernia in area of concern. Does not contain bowel. No bowel obstruction. Discussed lab and imaging findings with patient. With leukocytosis and bowel changes this week, will cover for potential infectious colitis with Augmentin. Patient was given pain control and hernia was able to be reduced back in. Unfortunately does seem to recurrently protrude out with simple movements. Recommended that patient trial an abdominal binder. She does report she has one at home. Recommended she limit heavy lifting and strenuous activity. Recommended pain control at home, will provide short course of [place]. Recommended close follow- up with General surgery for further definitive management of hernia. Discussed methods of reducing hernia and educated on manipulation techniques. Patient voiced understanding. Is in agreement with plan. Feels comfortable going home. Discussed very strict return precautions. Discharged in stable condition. CT scan did also show complex lesion of right adrenal gland. Patient is aware of this. She has had outpatient imaging in the past. Recommended she continue to follow-up with PCP for this. Patient had an episode chest burning after returning from CT imaging. She became concerned she was having a reaction to the contrast dye. Per records, patient has previously received contrast here, last occurring in October 2024. Denying any rash or itching. No evidence of airway compromise or anaphylactic reaction. She was given dose of Benadryl. EKG was performed without ischemic changes. Patient did calm down within 10 minutes. Suspicious for anxiety reaction. Medical Records Attestation: I reviewed the patient's medical records. Lab Data Attestation: I reviewed the patient's lab results. 06/13/25 17:58 06/13/25 17:58 Labs: Lab Results 06/13/25 06/13/25 06/13/25 Range/Units 17:58 18:48 18:51 WBC 12.0 H (4.5-10.0) K/mm3 RBC 5.05 (4.2-5.4) M/mm3 Hgb 14.7 D (12.0-15.0) g/dL Hct 44.9 (37.0-47.0) % MCV 88.9 (80-100) fl MCH 29.1 (26-34) pg MCHC 32.7 (32-36) g/dl RDW 15.1 H (11.5-14.5) % Plt Count 191 (150-375) k/mm3 MPV 12.6 H (7.4-10.4) fl Immature Gran % (Auto) 0.4 (0-0.5) % Neut % (Auto) 66.1 (45.5-73.1) % Lymph % (Auto) 25.3 (18.3-44.2) % Mcmullen % (Auto) 5.5 (2.6-8.5) % Eos % (Auto) 1.9 (0-4.4) % Baso % (Auto) 0.8 (0.2-1.2) % Lymph # (Auto) 3.03 (0.9-3.2) K/mm3 Mcmullen # (Auto) 0.7 H (0.1-0.6) K/mm3 Eos # (Auto) 0.2 (0-0.3) K/mm3 Baso # (Auto) 0.1 (0.0-0.1) K/mm3 Abs Immat Gran (auto) 0.05 H (0.00-0.031) K/mm3 Absolute Neuts (auto) 7.9 H (1.3-6.7) K/mm3 Absolute Nucleated RBC 0.000 (0.0-0.012) K/mm3 Nucleated RBC % 0.0 (0.0-0.2) % Sodium 134 L (137-145) mmol/L Potassium 3.6 (3.4-5.0) mmol/L Chloride 104 (98-107) mmol/L Carbon Dioxide 25 (22-30) mmol/L Anion Gap 5 (4-12) mmol/L BUN 7 (7-17) mg/dL Creatinine 0.83 (0.7-1.0) mg/dL Estim Creat Clear Calc 56 ml/min Estimated GFR > 60 (59 - ) Glucose 97 (65-110) mg/dL Calcium 9.6 (8.4-10.2) mg/dL Total Bilirubin 0.6 (0.2-1.3) mg/dL AST 27 (14-36) U/L ALT 18 (6-35) U/L Alkaline Phosphatase 94 (38-126) U/L Total Protein 7.5 (6.3-8.2) g/dL Albumin 4.3 (3.5-5.1) g/dL Lipase 33 (23-300) U/L Urine Color Yellow (Yellow) Urine Appearance Clear (Clear) Urine pH 6.5 (5.0-9.0) Ur Specific [place] 1.009 (1.001-1.035) Urine Protein Negative (Negative) mg/dL Urine Glucose (UA) Negative (Negative) mg/dL Urine Ketones Negative (Negative) mg/dL Ur Blood (Man) Trace (Negative) Urine Nitrate Negative (Negative) Urine Bilirubin Negative (Negative) Urine Urobilinogen 0.2 (<2.0) mg/dL Leukocyte Esterase Rfl Trace H (Negative) KIRAN/UL Urine RBC 0-2 (0-2) /hpf Urine WBC 0-5 (0-3) /hpf Ur Squamous Epith Cells None seen (Few) /hpf Urine Bacteria None seen /hpf Urine Casts 0-2 POC Urine HCG, Qual Negative (Negative) Imaging Data Attestation: I personally reviewed and interpreted this imaging study as follows: Radiologist's impression: ITS Impressions Abdomen/Pelvis CT 06/13/25 20:16 IMPRESSION: Mild subtle/gastritis. 2.5 cm, complex, indeterminate density right adrenal mass, demonstrating slow interval growth and potential interval hemorrhage. Recommend timely outpatient adrenal CT or MRI for further evaluation. Mild transverse and descending colonic wall edema as can be seen with colitis. Moderate sized fat and fluid containing right inferolateral abdominal wall hernia, with inflammatory changes. Discharge Plan Discharge Clinical Impression: Abdominal wall hernia, Right lower quadrant abdominal pain, Colitis, Right adrenal mass Patient Disposition: Home Condition: Stable Instructions: Antibiotic Form, Abdominal Pain (ED), Colitis (ED), Ventral Hernia (ED) Additional Instructions: Take antibiotics as prescribed for colitis. You may continue stool softener as needed for constipation. Stay well hydrated. Continue Tylenol, ibuprofen around the clock as needed for pain. [place] as needed for more severe pain. Recommend wearing abdominal binder to prevent worsening of hernia. Recommend gentle manipulation of hernia bulge to reduce hernia back in. You may use ice to hernia to help with reduction. Contact General surgery office on Monday to make follow-up appointment for further evaluation of hernia. Return to the ED if you experience worsening or severe pain, unable to reduce hernia, skin changes overlying hernia, severe constipation, rectal bleeding, dark black stools, unable to keep down food or drink, fevers, or any other symptoms of concern. Patient Language: Wolof Prescriptions: New hydrocodone-acetaminophen 5-325 mg tablet 1 tablet PO Q6H PRN (Reason: pain) Qty: 15 0RF amoxicillin-pot clavulanate 875-125 mg tablet 1 tablet PO Q12H 7 Days Qty: 14 0RF No Action Mounjaro 5 mg/0.5 mL pen injector 5 mg subcut WEEKLY varenicline tartrate [Chantix Starting Month Box] 0.5 mg (11)- 1 mg (42) tablets,dose pack See Rx Instructions PO PER PKG DIR Qty: 53 0RF Rx Instructions: PO PER PKG DIR Follow-up/Referrals: Jerson Sparks DO [Primary Care Provider] - Toby Moyer DO [Physician] - (GENERAL SURGERY) Time of Disposition: 22:58
--- NOTE | 2025-06-13 20:28 | ECG_ITS ---
Test Date: 2025-06-13 20:33:49 Measurements Intervals [place] Rate: 60 P: 23 MN: 129 QRS: 18 QRSD: 88 T: 42 QT: 408 QTc: 409 Interpretive Statements SINUS RHYTHM BASELINE ARTIFACT- I, II, III, AVR, AVL, AVF, V1-V6 NORMAL ECG No previous ECG available for comparison Electronically Signed On 06-14-2025 07:32:18 CDT by Sam Alvarez D.O.
[2025-06-13] MEDS: KETOROLAC 30 MG/ML VIAL (*BKC) IV PUSH (22:14)
[2025-06-13] MEDS: HYDROcodone/acetaminophen (*CRX) 5-325 MG TABLET 1 TAB PO (23:01)
== END 2025-06-13 23:18 | disposition home or self-care (01) ==
PROVIDERS: Student in an Organized Health Care Education/Training Program; Emergency Provider Physician Assistant; PCP Family Medicine
DX: K52.9 Noninfective gastroenteritis and colitis, unspecified (principal); K43.9 Ventral hernia without obstruction or gangrene; E27.9 Disorder of adrenal gland, unspecified; I10 Essential (primary) hypertension; G47.33 Obstructive sleep apnea (adult) (pediatric); Z98.1 Arthrodesis status; Z87.442 Personal history of urinary calculi; Z87.891 Personal history of nicotine dependence; Z90.710 Acquired absence of both cervix and uterus; Z90.49 Acquired absence of other specified parts of digestive tract; Z90.721 Acquired absence of ovaries, unilateral; K29.70 Gastritis, unspecified, without bleeding
CPT/HCPCS: 36415; 74177; 80053; 81001; 81025; 83690; 85025; 93005; 96374; 96375; 99284; A9270; J1171; J1200; J1885; J2405; Q9967

== ENCOUNTER 2025-08-03 00:07 | Emergency (ER) | payer OTHER, SELFPAY ==
--- NOTE | ~2025-08-03 | XR_ITS ---
Examination: XR chest 1V portable Clinical History: chest pain Comparison: 04/16/2022 Technique: Portable AP Findings: Heart size normal. Low lung volumes crowd bronchovascular markings. Thin linear atelectasis left lung base. Lungs otherwise clear. No acute bony abnormality. IMPRESSION: 1. No significant acute cardiopulmonary findings given portable technique. Reviewed, dictated and finalized at location R.
--- NOTE | ~2025-08-03 | CT_ITS ---
EXAMINATION: CT abdomen pelvis w con DATE: 08/03/2025 04:46 INDICATION: Right abdominal pain. Nausea and vomiting. TECHNIQUE: Computed tomography (CT) of the abdomen and pelvis was performed with 100 mL Omnipaque 350 intravenous contrast. Automated exposure control and iterative reconstruction technique were employed. The dose-length product was 625.55 mGy-cm. COMPARISON: CT abdomen and pelvis 06/13/25, 11/03/2024 FINDINGS: The visualized portions of the lung bases demonstrate mild atelectasis. There are a few nodules in right lung measuring up to 2 mm, likely benign. No pleural effusion. The heart size is normal. No pericardial effusion. There is a small sliding hiatal hernia. The liver is normal. The gallbladder is absent. The spleen, pancreas, and left adrenal gland are normal. There is a 2.5 cm mass in right adrenal gland measuring soft tissue attenuation, stable from 11/03/2024, likely an adenoma. Left kidney is normal. There is a 6 mm stone in right kidney. There are no dilated loops of bowel. There is a large volume of stool in the colon. There are changes of appendectomy. There are no pathologically enlarged lymph nodes. There is no free intraperitoneal fluid. There is a right inguinal hernia containing the right ovary. There is a benign bone island in right pelvis. There is moderate thoracic spondylosis. There are changes of anterior posterior fusion procedures at L4-L5. There is severe lower lumbar spondylosis. IMPRESSION: 1. Right inguinal hernia containing the right ovary. Reviewed, dictated and finalized at location E.
--- OUTSIDE RECORDS SUMMARY | 2025-08-03 00:09 | XMS_ITS | Clinical Summary ---
Author Organization [facility] Address [address] [place] [id number] Care Team Providers Care Program Director Scouting Name Role Phone Unavailable Primary Care Provider [...] 2) 2020 COVID-19 Vaccine (2023-2 5 season) 2025 Meningococcal B Vaccine Aged Out No l onger eligible based on patient's age to complete this topic Meningococcal Vaccine Aged Out No pradeep ceasar eligible based on patient's age to complete this topic RSV Immunizations Under 20 Months Aged Out No longer eligible based on patient's age to complete this topic
[2025-08-03 00:14] VITALS: BP 148/74; PULSE 61; RESP 18; TEMP 36.4; O2SAT 98
[2025-08-03 00:34] LABS: Hematocrit 41.1 % (37.0-47.0); Hemoglobin 13.2 g/dL (12.0-15.0); Immature Granulocyte Percent A 0.4 % (0-0.5); Lymphocytes Absolute Auto 3.68 K/mm3 (0.9-3.2); Mean Corpuscular HGB Conc 32.1 g/dl (32-36); Mean Corpuscular Hemoglobin 28.8 pg (26-34); Mean Corpuscular Volume 89.7 fl (80-100); Nucleated Red Blood Cells Absolute Auto 0.000 K/mm3 (0.0-0.012); Nucleated Red Blood Cells Perc 0.0 % (0.0-0.2); Platelet Count Result 199 k/mm3 (150-375); Red Blood Count 4.58 M/mm3 (4.2-5.4); White Blood Count 8.9 K/mm3 (4.5-10.0)
[2025-08-03 00:44] LABS: Alanine Aminotransferase 25 U/L (6-35); Albumin Level 4.1 g/dL (3.5-5.1); Alkaline Phosphatase 95 U/L (38-126); Anion Gap 6 mmol/L (4-12); Aspartate Amino Transferase 26 U/L (14-36); Bilirubin,Total 0.3 mg/dL (0.2-1.3); Blood Urea Nitrogen 26 mg/dL (7-17); Calcium 8.8 mg/dL (8.4-10.2); Carbon Dioxide 25 mmol/L (22-30); Chloride 107 mmol/L (98-107); Estimated CRCL calculation 68 ml/min; Estimated Glomerular Filt Rate > 60; Glucose 101 mg/dL (65-110); Potassium 4.1 mmol/L (3.4-5.0); Sodium 138 mmol/L (137-145); Total Protein 7.0 g/dL (6.3-8.2)
[2025-08-03 04:17] LABS: Add Urine Microscopic? YES; Appearance Urine Clear (Clear); Glucose Urine UA Negative (Negative); Leukocyte Esterase Ur 2+ LEU/UL (Negative); Nitrate Urine Negative (Negative); Non Pathogenic Casts 0-2; Specific Grav Ur 1.009 (1.001-1.035)
[2025-08-03] MEDS: HYDROmorphone HCL INJ (*CRX) 1 MG/ML SYR IV PUSH ×2 (05:00→07:40)
[2025-08-03] MEDS: ONDANSETRON INJ 4 MG/2 ML VIAL IV PUSH ×2 (05:00→07:38)
[2025-08-03] MEDS: diazePAM INJ (*CRX) 10 MG/2 ML SYRINGE 2.5 MG IV PUSH (05:00)
--- NOTE | 2025-08-03 06:03 | ED_ITS ---
HPI - Abdominal Pain General Chief Complaint: Abdominal Pain <Karen Andrade MD - Last Filed: 08/03/25 07:08> Stated Complaint: my hernia is hurting <Karen Andrade MD - Last Filed: 08/03/25 07:08> Time Seen by Provider: 08/03/25 04:03 <Karen Andrade MD - Last Filed: 08/03/25 07:08> History of Present Illness HPI narrative: Patient has a hernia after having had an appendectomy, intermittently come out and not back in. Yesterday started having pain where her hernia is in the right lower abdomen. <Karen Andrade MD - Last Filed: 08/03/25 07:08> Related Data Home Medications: Home Medications ?Medication ?Instructions ?Recorded ?Confirmed ?Last Taken ?Type coenzyme Q10 100 mg capsule (Co 200 mg PO DAILY 08/01/25 Unknown History Q-10) <Karen Andrade MD - Last Filed: 08/03/25 07:08> Allergies/Adverse Reactions: Allergies Allergy/AdvReac Type Severity Reaction Status Date / Time codeine AdvReac Unknown VOMITING Verified 08/03/25 00:16 <Karen Andrade MD - Last Filed: 08/03/25 07:08> Review of Systems 2 Review of Systems: All systems reviewed & are unremarkable except as noted in HPI and below <Karen Andrade MD - Last Filed: 08/03/25 07:08> PMFSH Past Medical History Medical History: Medical History Abdominal wall hernia Right inguinal hernia Fatty liver CINTHYA (obstructive sleep apnea) Obesity (BMI 35.0-39.9 without comorbidity) Right nephrolithiasis Abnormal EKG Tobacco use (Unknown) Abnormal EKG Fusion of lumbar spine L3-L4 2017 HTN (hypertension), benign <Karen Andrade MD - Last Filed: 08/03/25 07:08> Surgical History Surgical History: Surgical History History of laparoscopic appendectomy 11/04/[address] Moyer History of colonoscopy Normal colonoscopy in October 2021 History of medial meniscus repair of left knee H/O: hysterectomy hysterectomy with unilat oopherectomy 2007; cervix removed 2009 Status post cholecystectomy 2016 <Karen Andrade MD - Last Filed: 08/03/25 07:08> Family History Family History: Family History Mother Diabetes mellitus Depression Heart disease Lung cancer Hypertension Thyroid disorder Cerebrovascular accident History of heart artery stent CAD Onset in 60's to 70's Acute myocardial infarction 7 stents placed Grandparent Stomach cancer Grandparent Lung cancer Father Hypertension <Karen Andrade MD - Last Filed: 08/03/25 07:08> Social History Social History: Social History Social History: Patient lives at home with her Evan Carlson Hernandez. 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 She has 2 children that are grown. She has 2 cats She smoked 1ppd x 25 yrs. She quit Sep 2024. No alcohol or drug use. Patient's surrogate will be her Evan Patient wishes to be a full code Smoking packs per day: 1 Smoking cigarettes per day: 20.0 Years smoked: 21 Smoking pack-years: 21.00 Smoking status: Former smoker Tobacco type: cigarettes Second hand tobacco smoke exposure: No Smoking end date: 07/11/25 Additional smoking assessment comments: 1 PPD X 20 YEARS OFF AND ON Alcohol intake: never Substance use: never Substance use type: does not use Do You Feel Safe in your Home?: Yes Lack of Transportation: No Lack of Food: Never True Current Housing: I Have Housing Concerned About Future Housing: No Difficulty Paying Gas/Electric Bills: No Difficulty Paying for Meds: No Currently Unemployed: No Education: High School Diploma/GED Difficulty w/ Childcare or Family Care: No Living arrangements: with family Additional living arrangements comments: to cats Occupation/Education: occupation 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/education comments: 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 EYES: EOMI, conjunctiva normal ENT: Hearing grossly intact LUNGS: Nonlabored breathing. HEART: [Regular rate and rhythm] ABD: [Soft], tender palpation right lower abdomen, palpable hernia EXT: Normal range of motion SKIN: [No rashes or lesions.] NEURO: [Alert and oriented x 3. No gross focal sensory or strength deficits.] PSYCH: Normal affect <Karen Andrade MD - Last Filed: 08/03/25 07:08> Course Vital Signs Vital signs: Vital Signs Temperature 97.6 F 08/03/25 00:14 Pulse Rate 61 08/03/25 00:14 Respiratory Rate 18 08/03/25 00:14 Blood Pressure 148/74 H 08/03/25 00:14 Pulse Oximetry 98 08/03/25 00:14 Oxygen Delivery Room Air 08/03/25 00:14 Temperature 97.6 F 08/03/25 00:14 Pulse Rate 68 08/03/25 10:40 Respiratory Rate 18 08/03/25 10:40 Blood Pressure 125/68 08/03/25 10:40 Pulse Oximetry 97 08/03/25 10:40 Oxygen Delivery Room Air 08/03/25 00:14 <Karen Andrade MD - Last Filed: 08/03/25 07:08> Vital Signs Temperature 97.6 F 08/03/25 00:14 Pulse Rate 61 08/03/25 00:14 Respiratory Rate 18 08/03/25 00:14 Blood Pressure 148/74 H 08/03/25 00:14 Pulse Oximetry 98 08/03/25 00:14 Oxygen Delivery Room Air 08/03/25 00:14 Temperature 97.6 F 08/03/25 00:14 Pulse Rate 68 08/03/25 10:40 Respiratory Rate 18 08/03/25 10:40 Blood Pressure 125/68 08/03/25 10:40 Pulse Oximetry 97 08/03/25 10:40 Oxygen Delivery Room Air 08/03/25 00:14 <Yamil Ambrosio MD - Last Filed: 08/03/25 17:12> MDM - Abdominal Pain MDM Narrative Medical decision making narrative: Electronic medical record was reviewed. Patient presented to the ED with complaint of [right lower abdominal pain and nausea, concern for hernia pain]. Vitals [were within acceptable limits]. Physical exam revealed [tenderness to palpation in right lower abdomen, palpable hernia]. Based on the patient's history and physical exam, my differential includes but is not limited to incarcerated or strangulated hernia, gastritis, colitis. [IV access was established by nursing staff]. CBC, BMP, lipase, LFTs, bilirubin and alk phos were obtained. Labs were pertinent for normal labs including lactic and WBCs, urine without bacteria. [Decision was made to obtain a CT-abdomen to evaluate for acute abdominal process. CT-abdomen per radiology interpretation shows spigelian hernia without obvious signs of strangulation.] She is given a dose of Dilaudid and Valium, placed in Trendelenburg, and I was able to gently and manually reduce the hernia, with resolution of patient's symptoms. Abdominal binder placed. Unfortunately patient started having some chest pain, which she has had a cardiac catheterization in the past so I will obtain an EKG here and troponins. EKG - 12-Lead: Performed at 0625. Interpreted by me. [Sinus rhythm]. Rate 59. [Normal] axis. WV-interval [normal]. QRS duration [normal]. QTc [normal]. [No ST segment elevation or depression]. [T-wave normal]. Impression: No EKG evidence of acute ischemia or dysrhythmia. Patient will be signed out to oncoming physician at this time pending this additional workup. <Karen Andrade MD - Last Filed: 08/03/25 07:08> Electronic medical record was reviewed. Patient presented to the ED with complaint of [right lower abdominal pain and nausea, concern for hernia pain]. Vitals [were within acceptable limits]. Physical exam revealed [tenderness to palpation in right lower abdomen, palpable hernia]. Based on the patient's history and physical exam, my differential includes but is not limited to incarcerated or strangulated hernia, gastritis, colitis. [IV access was established by nursing staff]. CBC, BMP, lipase, LFTs, bilirubin and alk phos were obtained. Labs were pertinent for normal labs including lactic and WBCs, urine without bacteria. [Decision was made to obtain a CT-abdomen to evaluate for acute abdominal process. CT-abdomen per radiology interpretation shows spigelian hernia without obvious signs of strangulation.] She is given a dose of Dilaudid and Valium, placed in Trendelenburg, and I was able to gently and manually reduce the hernia, with resolution of patient's symptoms. Abdominal binder placed. Unfortunately patient started having some chest pain, which she has had a cardiac catheterization in the past so I will obtain an EKG here and troponins. EKG - 12-Lead: Performed at 06. Interpreted by me. [Sinus rhythm]. Rate 59. [Normal] axis. WV-interval [normal]. QRS duration [normal]. QTc [normal]. [No ST segment elevation or depression]. [T-wave normal]. Impression: No EKG evidence of acute ischemia or dysrhythmia. Patient will be signed out to oncoming physician at this time pending this additional workup. --- Patient care was signed out to me by the overnight physician with repeat troponin pending. Patient's CT was read is possible right ovary lodged in the inguinal hernia. Patient has a right-sided oophorectomy. Patient exam is not consistent with an incarcerated obstruction. Patient states her pain is controlled at this time. Patient was awaiting and a troponin and this repeat troponin was negative. Repeat EKG shows no evidence of acute STEMI. Patient's lactic acid was not elevated. Patient does have follow-up scheduled on for inguinal hernia repair. Patient does have an abdominal binder that she is wearing. Patient was comfortable with plan for discharge and close follow-up. < Yamil Ambrosio MD - Last Filed: 08/03/25 17:12> Differential Diagnosis Differential diagnosis: Likely abdominal pain, acute appendicitis, constipation, diverticulitis, pancreatitis and small bowel obstruction <Yamil Ambrosio MD - Last Filed: 08/03/25 17:12> Lab Data Attestation: I reviewed the patient's lab results. <Yamil Ambrosio MD - Last Filed: 08/03/25 17:12> Result diagrams: 08/03/25 00:26 08/03/25 00:26 <Karen Andrade MD - Last Filed: 08/03/25 07:08> Labs: Lab Results 08/03/25 08/03/25 08/03/25 Range/Units 00:26 04:06 06:04 WBC 8.9 (4.5-10.0) K/mm3 RBC 4.58 (4.2-5.4) M/mm3 Hgb 13.2 (12.0-15.0) g/dL Hct 41.1 (37.0-47.0) % MCV 89.7 (80-100) fl MCH 28.8 (26-34) pg MCHC 32.1 (32-36) g/dl RDW 14.2 (11.5-14.5) % Plt Count 199 (150-375) k/mm3 MPV 11.9 H (7.4-10.4) fl Immature Gran % (Auto) 0.4 (0-0.5) % Neut % (Auto) 45.4 L (45.5-73.1) % Lymph % (Auto) 41.3 (18.3-44.2) % Mclennan % (Auto) 6.5 (2.6-8.5) % Eos % (Auto) 5.4 H (0-4.4) % Baso % (Auto) 1.0 (0.2-1.2) % Lymph # (Auto) 3.68 H (0.9-3.2) K/mm3 Mclennan # (Auto) 0.6 (0.1-0.6) K/mm3 Eos # (Auto) 0.5 H (0-0.3) K/mm3 Baso # (Auto) 0.1 (0.0-0.1) K/mm3 Abs Immat Gran (auto) 0.04 H (0.00-0.031) K/mm3 Absolute Neuts (auto) 4.1 (1.3-6.7) K/mm3 Absolute Nucleated RBC 0.000 (0.0-0.012) K/mm3 Nucleated RBC % 0.0 (0.0-0.2) % Sodium 138 (137-145) mmol/L Potassium 4.1 (3.4-5.0) mmol/L Chloride 107 (98-107) mmol/L Carbon Dioxide 25 (22-30) mmol/L Anion Gap 6 (4-12) mmol/L BUN 26 H D (7-17) mg/dL Creatinine 0.79 (0.7-1.0) mg/dL Estim Creat Clear Calc 68 ml/min Estimated GFR > 60 (59 - ) Glucose 101 (65-110) mg/dL Lactic Acid 0.6 L (0.7-2.0) mmol/L Calcium 8.8 (8.4-10.2) mg/dL Total Bilirubin 0.3 (0.2-1.3) mg/dL AST 26 (14-36) U/L ALT 25 (6-35) U/L Alkaline Phosphatase 95 (38-126) U/L Troponin I < 0.012 (0.000-0.034) ng/mL Total Protein 7.0 (6.3-8.2) g/dL Albumin 4.1 (3.5-5.1) g/dL Urine Color Yellow (Yellow) Urine Appearance Clear (Clear) Urine pH 5.5 (5.0-9.0) Ur Specific [place] 1.009 (1.001-1.035) Urine Protein Negative (Negative) mg/dL Urine Glucose (UA) Negative (Negative) mg/dL Urine Ketones Negative (Negative) mg/dL Ur Blood (Man) Trace (Negative) Urine Nitrate Negative (Negative) Urine Bilirubin Negative (Negative) Urine Urobilinogen 0.2 (<2.0) mg/dL Leukocyte Esterase Rfl 2+ H (Negative) KIRAN/UL Urine RBC 0-2 (0-2) /hpf Urine WBC 6-10 H (0-3) /hpf Ur Squamous Epith Cells None seen (Few) /hpf Urine Bacteria None seen /hpf Urine Casts 0-2 09// Range/Units 09:50 WBC (4.5-10.0) K/mm3 RBC (4.2-5.4) M/mm3 Hgb (12.0-15.0) g/dL Hct (37.0-47.0) % MCV (80-100) fl MCH (26-34) pg MCHC (32-36) g/dl RDW (11.5-14.5) % Plt Count (150-375) k/mm3 MPV (7.4-10.4) fl Immature Gran % (Auto) (0-0.5) % Neut % (Auto) (45.5-73.1) % Lymph % (Auto) (18.3-44.2) % Mclennan % (Auto) (2.6-8.5) % Eos % (Auto) (0-4.4) % Baso % (Auto) (0.2-1.2) % Lymph # (Auto) (0.9-3.2) K/mm3 Mclennan # (Auto) (0.1-0.6) K/mm3 Eos # (Auto) (0-0.3) K/mm3 Baso # (Auto) (0.0-0.1) K/mm3 Abs Immat Gran (auto) (0.00-0.031) K/mm3 Absolute Neuts (auto) (1.3-6.7) K/mm3 Absolute Nucleated RBC (0.0-0.012) K/mm3 Nucleated RBC % (0.0-0.2) % Sodium (137-145) mmol/L Potassium (3.4-5.0) mmol/L Chloride (98-107) mmol/L Carbon Dioxide (22-30) mmol/L Anion Gap (4-12) mmol/L BUN (7-17) mg/dL Creatinine (0.7-1.0) mg/dL Estim Creat Clear Calc ml/min Estimated GFR (59 - ) Glucose (65-110) mg/dL Lactic Acid (0.7-2.0) mmol/L Calcium (8.4-10.2) mg/dL Total Bilirubin (0.2-1.3) mg/dL AST (14-36) U/L ALT (6-35) U/L Alkaline Phosphatase (38-126) U/L Troponin I < 0.012 (0.000-0.034) ng/mL Total Protein (6.3-8.2) g/dL Albumin (3.5-5.1) g/dL Urine Color (Yellow) Urine Appearance (Clear) Urine pH (5.0-9.0) Ur Specific [place] (1.001-1.035) Urine Protein (Negative) mg/dL Urine Glucose (UA) (Negative) mg/dL Urine Ketones (Negative) mg/dL Ur Blood (Man) (Negative) Urine Nitrate (Negative) Urine Bilirubin (Negative) Urine Urobilinogen (<2.0) mg/dL Leukocyte Esterase Rfl (Negative) KIRAN/UL Urine RBC (0-2) /hpf Urine WBC (0-3) /hpf Ur Squamous Epith Cells (Few) /hpf Urine Bacteria /hpf Urine Casts <Karen Andrade MD - Last Filed: 08/03/25 07:08> Lab Results 0908/03/25 08/03/25 Range/Units 00:26 04:06 06:04 WBC 8.9 (4.5-10.0) K/mm3 RBC 4.58 (4.2-5.4) M/mm3 Hgb 13.2 (12.0-15.0) g/dL Hct 41.1 (37.0-47.0) % MCV 89.7 (80-100) fl MCH 28.8 (26-34) pg MCHC 32.1 (32-36) g/dl RDW 14.2 (11.5-14.5) % Plt Count 199 (150-375) k/mm3 MPV 11.9 H (7.4-10.4) fl Immature Gran % (Auto) 0.4 (0-0.5) % Neut % (Auto) 45.4 L (45.5-73.1) % Lymph % (Auto) 41.3 (18.3-44.2) % Mclennan % (Auto) 6.5 (2.6-8.5) % Eos % (Auto) 5.4 H (0-4.4) % Baso % (Auto) 1.0 (0.2-1.2) % Lymph # (Auto) 3.68 H (0.9-3.2) K/mm3 Mclennan # (Auto) 0.6 (0.1-0.6) K/mm3 Eos # (Auto) 0.5 H (0-0.3) K/mm3 Baso # (Auto) 0.1 (0.0-0.1) K/mm3 Abs Immat Gran (auto) 0.04 H (0.00-0.031) K/mm3 Absolute Neuts (auto) 4.1 (1.3-6.7) K/mm3 Absolute Nucleated RBC 0.000 (0.0-0.012) K/mm3 Nucleated RBC % 0.0 (0.0-0.2) % Sodium 138 (137-145) mmol/L Potassium 4.1 (3.4-5.0) mmol/L Chloride 107 (98-107) mmol/L Carbon Dioxide 25 (22-30) mmol/L Anion Gap 6 (4-12) mmol/L BUN 26 H D (7-17) mg/dL Creatinine 0.79 (0.7-1.0) mg/dL Estim Creat Clear Calc 68 ml/min Estimated GFR > 60 (59 - ) Glucose 101 (65-110) mg/dL Lactic Acid 0.6 L (0.7-2.0) mmol/L Calcium 8.8 (8.4-10.2) mg/dL Total Bilirubin 0.3 (0.2-1.3) mg/dL AST 26 (14-36) U/L ALT 25 (6-35) U/L Alkaline Phosphatase 95 (38-126) U/L Troponin I < 0.012 (0.000-0.034) ng/mL Total Protein 7.0 (6.3-8.2) g/dL Albumin 4.1 (3.5-5.1) g/dL Urine Color Yellow (Yellow) Urine Appearance Clear (Clear) Urine pH 5.5 (5.0-9.0) Ur Specific [place] 1.009 (1.001-1.035) Urine Protein Negative (Negative) mg/dL Urine Glucose (UA) Negative (Negative) mg/dL Urine Ketones Negative (Negative) mg/dL Ur Blood (Man) Trace (Negative) Urine Nitrate Negative (Negative) Urine Bilirubin Negative (Negative) Urine Urobilinogen 0.2 (<2.0) mg/dL Leukocyte Esterase Rfl 2+ H (Negative) KIRAN/UL Urine RBC 0-2 (0-2) /hpf Urine WBC 6-10 H (0-3) /hpf Ur Squamous Epith Cells None seen (Few) /hpf Urine Bacteria None seen /hpf Urine Casts 0-2 09/21/25 Range/Units 09:50 WBC (4.5-10.0) K/mm3 RBC (4.2-5.4) M/mm3 Hgb (12.0-15.0) g/dL Hct (37.0-47.0) % MCV (80-100) fl MCH (26-34) pg MCHC (32-36) g/dl RDW (11.5-14.5) % Plt Count (150-375) k/mm3 MPV (7.4-10.4) fl Immature Gran % (Auto) (0-0.5) % Neut % (Auto) (45.5-73.1) % Lymph % (Auto) (18.3-44.2) % Mclennan % (Auto) (2.6-8.5) % Eos % (Auto) (0-4.4) % Baso % (Auto) (0.2-1.2) % Lymph # (Auto) (0.9-3.2) K/mm3 Mclennan # (Auto) (0.1-0.6) K/mm3 Eos # (Auto) (0-0.3) K/mm3 Baso # (Auto) (0.0-0.1) K/mm3 Abs Immat Gran (auto) (0.00-0.031) K/mm3 Absolute Neuts (auto) (1.3-6.7) K/mm3 Absolute Nucleated RBC (0.0-0.012) K/mm3 Nucleated RBC % (0.0-0.2) % Sodium (137-145) mmol/L Potassium (3.4-5.0) mmol/L Chloride (98-107) mmol/L Carbon Dioxide (22-30) mmol/L Anion Gap (4-12) mmol/L BUN (7-17) mg/dL Creatinine (0.7-1.0) mg/dL Estim Creat Clear Calc ml/min Estimated GFR (59 - ) Glucose (65-110) mg/dL Lactic Acid (0.7-2.0) mmol/L Calcium (8.4-10.2) mg/dL Total Bilirubin (0.2-1.3) mg/dL AST (14-36) U/L ALT (6-35) U/L Alkaline Phosphatase (38-126) U/L Troponin I < 0.012 (0.000-0.034) ng/mL Total Protein (6.3-8.2) g/dL Albumin (3.5-5.1) g/dL Urine Color (Yellow) Urine Appearance (Clear) Urine pH (5.0-9.0) Ur Specific [place] (1.001-1.035) Urine Protein (Negative) mg/dL Urine Glucose (UA) (Negative) mg/dL Urine Ketones (Negative) mg/dL Ur Blood (Man) (Negative) Urine Nitrate (Negative) Urine Bilirubin (Negative) Urine Urobilinogen (<2.0) mg/dL Leukocyte Esterase Rfl (Negative) KIRAN/UL Urine RBC (0-2) /hpf Urine WBC (0-3) /hpf Ur Squamous Epith Cells (Few) /hpf Urine Bacteria /hpf Urine Casts <Yamil Ambrosio MD - Last Filed: 08/03/25 17:12> Imaging Data Radiologist's impression: ITS Impressions Chest X-Ray 08/03/25 07:14 IMPRESSION: 1. No significant acute cardiopulmonary findings given portable technique. Abdomen/Pelvis CT 08/03/25 07:59 IMPRESSION: 1. Right inguinal hernia containing the right ovary. <Karen Andrade MD - Last Filed: 08/03/25 07:08> ITS Impressions Chest X-Ray 08/03/25 07:14 IMPRESSION: 1. No significant acute cardiopulmonary findings given portable technique. Abdomen/Pelvis CT 08/03/25 07:59 IMPRESSION: 1. Right inguinal hernia containing the right ovary. <Yamil Ambrosio MD - Last Filed: 08/03/25 17:12> Discharge Plan Discharge Clinical Impression: Hernia, Chest pain <Karen Andrade MD - Last Filed: 08/03/25 07:08> Patient Disposition: Home <Karen Andrade MD - Last Filed: 08/03/25 07:08> Condition: Stable <Karen Andrade MD - Last Filed: 08/03/25 07:08> Instructions: Chest Pain (ED), Incisional Hernia (ED) <Karen Andrade MD - Last Filed: 08/03/25 07:08> Additional Instructions: Please follow-up your general surgeon, and with your scientific helper. If your pain returns, if you start having nausea vomiting, fevers or chills, or anything else concerning, please return to the emergency room. <aKren Andrade MD - Last Filed: 08/03/25 07:08> Patient Language: Kiswahili <Karen Andrade MD - Last Filed: 08/03/25 07:08> Prescriptions: No Action coenzyme Q10 [Co Q-10] 100 mg capsule 200 mg PO DAILY varenicline tartrate [Chantix Continuing Month Box] 1 mg tablet 1 mg PO BID Qty: 56 0RF <Karen Andrade MD - Last Filed: 08/03/25 07:08> Follow-up/Referrals: Mil Cabral MD [Physician, Cardiology] - 2 Days Jreson Sparks DO [Primary Care Provider, Family Practice] <Karen Andrade MD - Last Filed: 08/03/25 07:08> Stand Alone Forms: Work/School Release IP <Karen Andrade MD - Last Filed: 08/03/25 07:08>
--- NOTE | 2025-08-03 06:20 | PC.NURSE ---
pt called out to verbalize cp. EDP notified and ekg ordered. Pt verbalized to this rn during ekg that last time I was here, this same thing happened. They gave me a shot of benadryl and I was completely fine. EDP Notified of conversation.
--- NOTE | 2025-08-03 06:21 | ECG_ITS ---
Test Date: 2025-08-03 06:25:03 Measurements Intervals [place] Rate: 59 P: 58 MD: 125 QRS: 19 QRSD: 88 T: 32 QT: 422 QTc: 419 Interpretive Statements SINUS BRADYCARDIA OTHERWISE NORMAL ECG Compared to ECG 06/13/2025 20:33:49 Sinus rhythm no longer present Electronically Signed On 08-03-2025 08:29:39 CDT by Mil Cabral M.D.
[2025-08-03 06:56] LABS: Troponin I < 0.012 ng/mL (0.000-0.034)
[2025-08-03] MEDS: PANTOPRAZOLE SODIUM IV 40 MG VIAL IV PUSH (07:42)
[2025-08-03 08:00] VITALS: BP 115/67; PULSE 62; RESP 16; O2SAT 98
--- NOTE | 2025-08-03 09:15 | ECG_ITS ---
Test Date: 2025-08-03 09:35:20 Measurements Intervals [place] Rate: 58 P: 33 PA: 154 QRS: 2 QRSD: 83 T: 8 QT: 424 QTc: 416 Interpretive Statements SINUS BRADYCARDIA Compared to ECG 08/03/2025 06:25:03 NO SIGNIFICANT CHANGES Electronically Signed On 08-04-2025 14:08:07 CDT by Sp Lopez M.D.
[2025-08-03 09:30] VITALS: BP 128/78; PULSE 58; RESP 16; O2SAT 97
[2025-08-03 10:15] LABS: Troponin I < 0.012 ng/mL (0.000-0.034)
[2025-08-03 10:40] VITALS: BP 125/68; PULSE 68; RESP 18; O2SAT 97
== END 2025-08-03 10:40 | disposition home or self-care (01) ==
PROVIDERS: Emergency Provider Emergency Medicine; PCP Family Medicine
DX: K40.90 Unilateral inguinal hernia, without obstruction or gangrene, not specified as recurrent (principal); R07.9 Chest pain, unspecified; I10 Essential (primary) hypertension; G47.33 Obstructive sleep apnea (adult) (pediatric); Z87.442 Personal history of urinary calculi; Z87.891 Personal history of nicotine dependence; Z90.710 Acquired absence of both cervix and uterus; Z90.721 Acquired absence of ovaries, unilateral; Z90.49 Acquired absence of other specified parts of digestive tract; R00.1 Bradycardia, unspecified
CPT/HCPCS: 36415; 71045; 74177; 80053; 81001; 83605; 84484; 85025; 87086; 93005; 96374; 96375; 96376; 99284; J1171; J2405; J2470; J3360; Q9967

== ENCOUNTER 2025-08-05 08:31 | Outpatient (CLI) | payer OTHER, SELFPAY ==
--- OUTSIDE RECORDS SUMMARY | 2025-08-05 08:52 | XMS_ITS | Clinical Summary ---
Author Organization [facility] Address [address] [place] [id number] Care Team Providers Care Global Technical Writer Name Role Phone Unavailable Primary Care Provider [...]
--- OUTSIDE RECORDS SUMMARY | 2025-08-05 08:52 | XMS_ITS | Clinical Summary ---
Author Organization [facility] Address [address] [facility] [place] [address] Care Team Providers Care Staff Reporter Name Role Phone Mil Farmer MD Primary Care Provider [phone]- [phone] Source Comments [facility],non-owned Affiliates and Associated Physician Practices is amultiple site organization consisting of ambulatory clinics and hospital sitesin [place], [place], [place] and [place]. This disclosure is being madepursuant to the Care Everywhere program and may not contain all information available regarding this patient. 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
== END 2025-08-05 08:32 | disposition home or self-care (01) ==
LOC: ANHSURGERY 08:35
PROVIDERS: PCP Family Medicine; Visit Provider Surgery
DX: K40.30 Unilateral inguinal hernia, with obstruction, without gangrene, not specified as recurrent (principal)
CPT/HCPCS: 36415; 86850; 86900; 86901

== ENCOUNTER 2025-08-07 01:30 | Day surgery (SDC) | payer OTHER, SELFPAY ==
[2025-08-01 10:48] VITALS: BMI 26.1
--- NOTE | 2025-08-01 11:00 | PC.NURSE ---
[facility] has started construction of its new state of the art ER which will open Spring 2026. With this, we anticipate parking may be a challenge for some our surgical patients and families. Parking spaces are limited but are available for all Surgical, obstetrics, and ER patients sharing this lot. If you arrive and find you are having a hard time finding a parking space, please note that we understand the challenges, please drive around the hospital and park near Hospital Entrance 1. When you enter this entrance, you can ask a volunteer to direct or take you back to the surgical waiting area to check in. We appreciate everyone?s understanding of these expected challenges while we build for your future. Report to the Outpatient Waiting Room, entrance under the green pavilion located off [address], at time _0730_ on date _[phone]_. Planned Procedure Time: _929_.? Time changes happen often and if your time is changed the preop area will call you the afternoon before. - You and your visitor will be asked to self-screen and do not enter if you have any COVID symptoms. Please call surgeon if you need to reschedule. - A mask is optional within the hospital at this time. Patients may have clear liquids (water, carbonated beverages, clear teas, apple juice) until 3 hours prior to surgery with a maximum of 20 ounces. - No food from midnight until time of surgery and no smoking, or chewing tobacco (or any form of nicotine). No chewing gum, candy or mints. Take only the following medications with a SIP of water on the morning of surgery: ___None____ DO NOT STOP ANY OF YOUR OTHER PRESCRIPTION MEDICATIONS PRIOR TO SURGERY EXCEPT THE FOLLOWING Hold all vitamins and supplements for 3 days per anesthesiologist. Medications to discontinue per physician Date to take last dose Please no make-up, nail bulgarian, hairspray, perfume, deodorant, or body powder the day of surgery.? No jewelry (including any body piercings) or valuables the day of surgery, leave them at home.? Please take a shower or bath the night before, or the morning of, surgery with an antibacterial soap.? Wear comfortable, loose fitting clothing.? - Jewelry must be removed prior to entering the operating room.? Rings and piercings that are not removed may be cut off. - The hospital will not accept responsibility for valuables.? - Please leave all valuables, including medications, at home the day of surgery. If you are going home after surgery, a licensed dedicated driver must drive you home.? - NO public transportation without another adult if you receive anesthesia. - We recommend that an adult stay with you for 24 hours following discharge. - We also recommend that you do not drive, make important decision, drink alcoholic beverages, or take any drugs that were not prescribed by your health care provider for at least 24 hours after your discharge time. Follow any additional instructions given to you from your surgeon. Telephone instructions given to __Renee___and asked if any additional questions and then verbalized understanding. Patient advised to call surgeon office or pre surgery nurse liaison [phone] if any additional questions.
[2025-08-07] VITALS (11 sets, daily range): BP systolic 122–144; BP diastolic 52–83; PULSE 56–95; RESP 12–20; TEMP 36.3–37; O2SAT 92–98
--- OUTSIDE RECORDS SUMMARY | 2025-08-07 01:33 | XMS_ITS | Clinical Summary ---
Author Organization [facility] Address [address] [place] [address] Care Team Providers Care Rock Climbing Instructor Name Role Phone Mil Farmer MD Primary Care Provider [phone]- [phone] Source Comments [facility],non-owned Affiliates and Associated Physician Practices is amultiple site organization consisting of ambulatory clinics and hospital sitesin [place], [place], [place] and [place]. This disclosure is being madepursuant to the Care Everywhere program and may not contain all information available regarding this patient. 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
--- OUTSIDE RECORDS SUMMARY | 2025-08-07 01:33 | XMS_ITS | Clinical Summary ---
Author Organization [facility] Address [address] [place] [address] Care Team Providers Care Hand Marker Name Role Phone Unavailable Primary Care Provider [...]
--- NOTE | 2025-08-07 07:17 | P.HP_ITS ---
H&P: HPI History of Present Illness Date/Time: 08/07/25 07:17 Chief Complaint: incarcerated right inguinal hernia Narrative: Ms. Mendez presents to the office at the request of Dr. Sparks for evaluation. Patient was told in 11/2024, during her appendectomy, she was found to have a small right inguinal hernia. It was very small and asymptomatic. Over the past month, she has developed increase in size and associated tenderness. Now is unable to reduce bulge. No change in bowels, nausea, vomiting, or abdominal distension. Recent CT scan showed moderate sized fat and fluid containing right inferolateral abdominal wall hernia, with inflammatory changes. Review of Systems Review of Systems: All systems reviewed & are unremarkable except as noted in HPI and below PMFSH Past Medical History Medical History Abdominal wall hernia Right inguinal hernia Fatty liver CINTHYA (obstructive sleep apnea) Obesity (BMI 35.0-39.9 without comorbidity) Right nephrolithiasis Abnormal EKG Tobacco use (Unknown) Abnormal EKG Fusion of lumbar spine L3-L4 2017 HTN (hypertension), benign Surgical History Surgical History History of laparoscopic appendectomy 11/04/[address] Moyer History of colonoscopy Normal colonoscopy in October 2021 History of medial meniscus repair of left knee H/O: hysterectomy hysterectomy with unilat oopherectomy 2007; cervix removed 2009 Status post cholecystectomy 2016 Family History Family History Mother Diabetes mellitus Depression Heart disease Lung cancer Hypertension Thyroid disorder Cerebrovascular accident History of heart artery stent CAD Onset in 60's to 70's Acute myocardial infarction 7 stents placed Grandparent Stomach cancer Grandparent Lung cancer Father Hypertension Social History Social History Social History: Patient lives at home with her Evan araya Aldo Ng. 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 She has 2 children that are grown. She has 2 cats She smoked 1ppd x 25 yrs. She quit Sep 2024. No alcohol or drug use. Patient's surrogate will be her Evan Patient wishes to be a full code Smoking packs per day: 1 Smoking cigarettes per day: 20.0 Years smoked: 21 Smoking pack-years: 21.00 Smoking status: Former smoker Tobacco type: cigarettes Second hand tobacco smoke exposure: No Smoking end date: 07/11/25 Additional smoking assessment comments: 1 PPD X 20 YEARS OFF AND ON Alcohol intake: never Substance use: never Substance use type: does not use Do You Feel Safe in your Home?: Yes Lack of Transportation: No Lack of Food: Never True Current Housing: I Have Housing Concerned About Future Housing: No Difficulty Paying Gas/Electric Bills: No Difficulty Paying for Meds: No Currently Unemployed: No Education: High School Diploma/GED Difficulty w/ Childcare or Family Care: No Living arrangements: with family Additional living arrangements comments: to cats Occupation/Education: occupation 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/education comments: 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 Gender identity (if verbalized by the patient): Female Sexual Orientation (if Verbalized by the Patient): Straight or Heterosexual Spiritual care concerns: No Agree to blood products: Yes Meds Home Medications and Allergies Home Medications ?Medication ?Instructions ?Recorded ?Confirmed ?Type varenicline tartrate 1 mg tablet 1 mg PO BID #56 tabs 07/17/25 08/01/25 Rx (Chantix Continuing Month Box) coenzyme Q10 100 mg capsule (Co 200 mg PO DAILY 08/01/25 History Q-10) Allergies Allergy/AdvReac Type Severity Reaction Status Date / Time codeine AdvReac Unknown VOMITING Verified 08/03/25 00:16 Exam Const: General: cooperative, comfortable and no acute distress Resp: Auscultation: clear to auscultation bilaterally Cardio: Rate: regular rate Rhythm: regular rhythm GI: Inspection: normal to inspection, non-distended and visible herniation GI Palp: Yes abdominal tenderness, Yes Soft to palpation and Yes Hernia present Other: moderate-sized incarcerated right inguinal hernia Assessment and Plan Assessment and plan (1) Incarcerated right inguinal hernia: Code(s): K40.30 - Unilateral inguinal hernia, with obstruction, without gangrene, not specified as recurrent Status: Acute Assessment and Plan: set up for robotic assisted repair incarcerated right inguinal hernia with mesh
--- NOTE | 2025-08-07 07:19 | WPDHPUPDATE1 ---
History and Physical Update Update Date/Time: 08/07/25 07:19 History and Physical has been reviewed, including an updated exam of the patient. There are NO changes in the patient's condition. Risks, benefits, and alternatives have been discussed and questions answered. Patient agrees to proceed with procedure.
[2025-08-07] MEDS: ACETAMINOPHEN 500 MG TABLET 1000 MG PO (08:05)
[2025-08-07] MEDS: LACTATED RINGERS 1,000 ML 30 ML IV CONT ×2 (08:10→10:56)
[2025-08-07] MEDS: KETOROLAC 15 MG/ML VIAL (*BKC) IV PUSH ×2 (08:15→10:40)
--- NOTE | 2025-08-07 09:32 | WPDANESEPPF ---
Anes - Initial Pre Proc Eval Procedure: Operation Date: 08/07/25 09:30 Proposed Procedures p Robotic Incarcerated Right Inguinal Hernia Repair with Mesh - Graciela Jose MD Date/Time: 08/07/25 09:32 Surgeon: Graciela Jose MD Pre Op Diagnosis: incarcerated rt ing hernia Patient Data Age: 55 Gender: F Height: 1.63 m Weight: 73 kg Last Vital Signs Temp 98.6 F 08/07/25 07:45 Pulse 63 08/07/25 07:45 Resp 16 08/07/25 07:45 BP 135/77 08/07/25 07:45 Pulse Ox 98 08/07/25 07:45 O2 Del Method Room Air 08/07/25 07:45 Allergies Allergy/AdvReac Type Severity Reaction Status Date / Time codeine AdvReac Unknown VOMITING Verified 08/07/25 09:01 Home Medications ?Medication ?Instructions ?Recorded ?Confirmed ?Type varenicline tartrate 1 mg tablet 1 mg PO BID #56 tabs 07/17/25 08/07/25 Rx (Chantix Continuing Month Box) coenzyme Q10 100 mg capsule (Co 200 mg PO DAILY 08/01/25 08/07/25 History Q-10) Patient hx anesthesia problems: none Family hx anesthesia problems: none Results Review: All pre-operative results and documents have been reviewed as part of the pre-operative evaluation. [facility] Past Medical History Medical History Abdominal wall hernia Right inguinal hernia Fatty liver CINTHYA (obstructive sleep apnea) Obesity (BMI 35.0-39.9 without comorbidity) Right nephrolithiasis Abnormal EKG Tobacco use (Unknown) Abnormal EKG Fusion of lumbar spine L3-L4 2017 HTN (hypertension), benign Surgical History Surgical History History of laparoscopic appendectomy 11/04/[address] Moyer History of colonoscopy Normal colonoscopy in October 2021 History of medial meniscus repair of left knee H/O: hysterectomy hysterectomy with unilat oopherectomy 2007; cervix removed 2009 Status post cholecystectomy 2017 Family History Family History Mother Diabetes mellitus Depression Heart disease Lung cancer Hypertension Thyroid disorder Cerebrovascular accident History of heart artery stent CAD Onset in 60's to 70's Acute myocardial infarction 7 stents placed Grandparent Stomach cancer Grandparent Lung cancer Father Hypertension Social History Social History Social History: Patient lives at home with her Evan Ng. 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 She has 2 children that are grown. She has 2 cats She smoked 1ppd x 25 yrs. She quit Sep 2024. No alcohol or drug use. Patient's surrogate will be her Evan Patient wishes to be a full code Smoking packs per day: 1 Smoking cigarettes per day: 20.0 Years smoked: 21 Smoking pack-years: 21.00 Smoking status: Former smoker Tobacco type: cigarettes Second hand tobacco smoke exposure: No Smoking end date: 07/11/25 Additional smoking assessment comments: 1 PPD X 20 YEARS OFF AND ON Alcohol intake: never Substance use: never Substance use type: does not use Do You Feel Safe in your Home?: Yes Lack of Transportation: No Lack of Food: Never True Current Housing: I Have Housing Concerned About Future Housing: No Difficulty Paying Gas/Electric Bills: No Difficulty Paying for Meds: No Currently Unemployed: No Education: High School Diploma/GED Difficulty w/ Childcare or Family Care: No Living arrangements: with family Additional living arrangements comments: to cats Occupation/Education: occupation 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/education comments: 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 Gender identity (if verbalized by the patient): Female Sexual Orientation (if Verbalized by the Patient): Straight or Heterosexual Spiritual care concerns: No Agree to blood products: Yes Anes - Eval Final PreProcedure Day of Procedure 08/07/25 09:32 Patient weight: normal Heart: regular rate and rhythm Lungs: clear to auscultation Airway: Mallampati scale class II Neurological: alert and oriented Last oral intake: >/= 8 hours ASA classification: III Emergent: no Anesthetic plan: proceed Anesthesia type and monitoring: general ETT and standard monitoring Results Review: All pre-operative results and documents have been reviewed as part of the pre-operative evaluation. Informed Consent: The patient's anesthetic plan and its attendant risks and benefits were discussed with the patient/family/POA. Questions were solicited and answers provided to the satisfaction of the patient/family/POA.
[2025-08-07] MEDS: ceFAZolin 2 GM in SODIUM CHLORIDE 0.9% IV 50 ML 100 ML IVPB (09:39)
[2025-08-07] MEDS: BUPIVACAINE/EPINEPHRINE 0.5% 50 ML VIAL 30 ML INFILTRATE (10:20)
--- NOTE | 2025-08-07 10:43 | P.OP_ITS ---
Procedure Note - Detailed Date of Procedure 08/07/25 Pre-op Diagnosis incarcerated right inguinal hernia Post-op Diagnosis Same Procedure Performed robotic assisted incarcerated right inguinal hernia repair with mesh Surgeon Graciela Jose MD Anesthesia General and Local Indications 55-year-old female presenting with a incarcerated right inguinal hernia. Patient had imaging consistent with incarcerated right inguinal hernia. Patient reports a steadily worsening symptomatology. Findings Incarcerated indirect right inguinal hernia with right ovary Description of Procedure Patient was brought into the operating room and placed in the supine position. After adequate induction of general anesthesia, the patient was prepped and draped in normal sterile fashion. A time-out was then done to verify the pa tient's identity, as well as the procedure being performed. I began by making a 8 mm incision in the supraumbilical region, a Veress needle was then placed into the peritoneal cavity. CO2 gas was then insufflated and after adequate pneumoperitoneum was achieved, the Veress needle was removed. I then placed an 8 mm trocar through this incision. I then placed the endoscope through this trocar site and under direct visualization placed 2 further 8 mm ports in the right and left mid abdomen. The [employer] robot was then docked to the 3 trocar sites. I then scrubbed out and went to the robotic console. Upon examining the pelvis, it was noted that the patient had a moderate-sized incarcerated right inguinal hernia. The left side was examined and no hernia defect was noted. The right ovary was noted to be incarcerated in the hernia. This was reduced with gentle traction. The ovary was examined status post reduction and was noted to be largely unremarkable. I began by making a preperitoneal flap approximately 6 cm superior to the defect. This flap was carried medially past the umbilical ligaments in laterally to the transversalis. It then began dissection of my medial compartment taking this down to the pubic tubercle. I then began the lateral dissection taking this down to the transversalis fascia. Once these compartments were achieved, I began dissection around the indirect space. A moderate-sized indirect hernia was noted at this point. Using careful dissection, was able to reduce indirect hernia sac off the round ligament. Once this was adequately done, I went ahead and placed a large piece of 3D Max mesh into the abdominal cavity. The mesh was carefully positioned, centering the center of the mesh over the indirect defect. Once this was done, was very sa tisfied with our repair. Using 3-0 Vicryl sutures, I tacked the mesh medially to Ace's ligament. Two lateral sutures were placed from the mesh to the transversalis fascia. I then closed the peritoneal flap with a running 2.0 V Lock suture. The abdomen was then desufflated, and all ports were removed. All incisions were then closed with the 4.0 monocryl suture. Dermabond was placed on each wound. The patient tolerated the procedure well, was extubated in the operating room postoperatively, and will now be transferred to the recovery room in stable condition. Implants large 3DMax mesh Estimated Blood Loss 10 Drains No Packing No Pathology None sent Complications No immediate complications Condition Stable Disposition PACU [facility] Billing Surgery - Charge Forward: Surgery Billing
[2025-08-07] MEDS: fentaNYL CITRATE INJ (*CRX) 100 MCG/2 ML VIAL 25 MCG IV PUSH ×8 (11:06→11:47)
[2025-08-07] MEDS: HYDROmorphone HCL INJ (*CRX) 1 MG/ML SYR 0.5 MG IV PUSH ×2 (11:53→11:59)
[2025-08-07] MEDS: oxyCODONE HCL (*CRX) 5 MG TAB IR PO (12:29)
== END 2025-08-07 13:06 | disposition home or self-care (01) ==
PROVIDERS: PCP Family Medicine; Visit Provider Surgery
PROC: 8E0Y4CZ Robotic Assisted Procedure of Lower Extremity, Percutaneous Endoscopic Approach (ICD-10-PCS; CPT 49650; principal; 2025-08-07 09:30)
DX: K40.30 Unilateral inguinal hernia, with obstruction, without gangrene, not specified as recurrent (principal); I10 Essential (primary) hypertension; G47.33 Obstructive sleep apnea (adult) (pediatric); Z98.890 Other specified postprocedural states; Z98.1 Arthrodesis status; Z90.49 Acquired absence of other specified parts of digestive tract; Z87.891 Personal history of nicotine dependence; Z87.19 Personal history of other diseases of the digestive system; Z80.1 Family history of malignant neoplasm of trachea, bronchus and lung; Z80.0 Family history of malignant neoplasm of digestive organs; Z82.49 Family history of ischemic heart disease and other diseases of the circulatory system
CPT/HCPCS: 49650; S2900; J0690; A9270; C1781; J1100; J1171; J1885; J2003; J2250; J2405; J2704; J3010; J7120

== ENCOUNTER 2025-10-14 15:33 | Outpatient (CLI) | payer OTHER, SELFPAY ==
--- NOTE | ~2025-10-14 | MM_ITS ---
EXAMINATION: MM screening jodi BI w maren HISTORY: Screening. TECHNIQUE: Craniocaudal and mediolateral oblique 3-D tomosynthesis images were obtained and synthetic 2-D images were generated. CAD analysis was submitted and interpreted. COMPARISON: None available. BREAST PARENCHYMAL COMPOSITION: Dense: The breasts are heterogeneously dense FINDINGS: No suspicious masses are seen. There are no suspicious calcifications. No unexplained architectural distortion is seen. There are no skin or nipple abnormalities identified. There is no adenopathy seen on the images submitted. IMPRESSION: No mammographic evidence to suggest malignancy is seen. The patient may return to screening mammography as per ACR guidelines. BI-RADS 1 - Negative. Reviewed, dictated and finalized at location B. BLE[facility]
--- OUTSIDE RECORDS SUMMARY | 2025-10-14 16:42 | XMS_ITS | Clinical Summary ---
Author Organization [facility] Address [address] [place] [address] Care Team Providers Care Skidder Operator Name Role Phone Unavailable Primary Care Provider [...] Vaccines (1 of 2) 2020 COVID-19 Vaccine (2024-2 6 season) 2025 Influenza Adult (#1) 2025 Hepatitis A Vaccines Aged Out No long er eligible based on patient's age to complete this topic Meningococcal B Vaccine Aged Out No l onger eligible based on patient's age to complete this topic Meningococcal Vaccine Aged Out No pradeep ceasar eligible based on patient's age to complete this topic RSV Immunizations Under 20 Months Aged Out No longer eligible based on patient's age to complete this topic
--- OUTSIDE RECORDS SUMMARY | 2025-10-14 16:42 | XMS_ITS | Clinical Summary ---
Author Organization [facility] Address [address] [place] [address] Care Team Providers Care Range Mechanic Name Role Phone Mil Farmer MD Primary Care Provider +1- [phone] Source Comments [facility],non-owned Affiliates and Associated Physician Practices is amultiple site organization consisting of ambulatory clinics and hospital sitesin [place], [place], [place] and [place]. This disclosure is being madepursuant to the Care Everywhere program and may not contain all information available regarding this patient. 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 Gender Identity Not on file Sexual Orientation [...] 19+ 3-dose series) 1989 Cervical Cancer Screening 1991 PAP SMEAR 1991 PAP with HPV 2000 PNEUMOCOCCAL VACCINE 50+ (1 of 1 - PCV) 2020 ZOSTER VACCINE (1 of 2) 2020 DEPRESSION SCREENING 11/13/2024 COVID-19 VACCINE (1 - 2024-2 6 season) 2025 INFLUENZA VACCINE (#1) 2025 HIB [...] Subscriber ID:Not on file (Home) Address: [place] [address] Payer ID:Not on file Group ID:Not on file Type:Self Pay Address: [place], [place] [employer] [facility] Address: [facility] [id number] [place] [id number] Care Teams Range Mechanic Relationship Specialty Start Date End Date Mil Farmer MD [address] [place] [address] [address] [place] [address] PCP - General 10/11/10
== END 2025-10-14 15:34 | disposition home or self-care (01) ==
LOC: ANHFOHIMG 15:34
PROVIDERS: PCP Family Medicine; Visit Provider Family Medicine
DX: Z12.31 Encounter for screening mammogram for malignant neoplasm of breast (principal)
CPT/HCPCS: 77063; 77067